=== PATIENT | female | born 1955 | race Caucasian/White ===

== ENCOUNTER 2017-01-18 09:41 | Outpatient (CLI) | payer OTHER ==
[~2017-01-18] VITALS: Ht 157.5 cm; Wt 59.1 kg
[2017-01-18] MEDS ORDERED: FLUT1AER IH (10:04)
[2017-01-18] MEDS ORDERED: OXYC5TAB71 PO (10:04)
[2017-01-18] MEDS ORDERED: [UNRECOGNIZED DRUG - CODE] PO (10:04)
[2017-01-18] MEDS ORDERED: SUMA50TA2 PO (10:04)
[2017-01-18] MEDS ORDERED: MONT10TA21 PO (10:04)
[2017-01-18] MEDS ORDERED: BUPR300T51 PO (10:04)
[2017-01-18] MEDS ORDERED: LUBI24CA6 PO (10:04)
[2017-01-18] MEDS ORDERED: DILT180C PO (10:04)
[2017-01-18] MEDS ORDERED: CLON1TAB27 PO (10:04)
[2017-01-18] MEDS ORDERED: CARI350T27 PO (10:04)
[2017-01-18] MEDS ORDERED: MULT-35 PO (10:04)
[2017-01-18] MEDS ORDERED: SIMV40TA4 PO (10:04)
[2017-01-18] MEDS ORDERED: QUET25TA73 PO (10:04)
[2017-01-18] MEDS ORDERED: RAMI10CA PO (10:04)
[2017-01-18] MEDS ORDERED: AMIT25TA9 PO (10:04)
[2017-01-18] MEDS ORDERED: PANT40TA3 PO (10:04)
[2017-01-18] MEDS ORDERED: FOLI1TAB24 PO (10:04)
[2017-01-18] MEDS ORDERED: LEVO125T6 PO (10:04)
[2017-01-18] MEDS ORDERED: ABAT250V IV (10:04)
[2017-01-18 10:12] VITALS: BP 116/77
[2017-01-18 10:55] LABS: BASOPHILS % (AUTO) 0 % (0-10); EOSINOPHILS # (AUTO) 0.1 10^3/uL (0.0-0.3); EOSINOPHILS % (AUTO) 1 % (0-10); LYMPHOCYTES # (AUTO) 1.3 X 10^3 (1.0-4.0); LYMPHOCYTES % (AUTO) 19 % (12-44); MEAN CORPUSCULAR HEMOGLOBIN 30 PG (25-34); MEAN CORPUSCULAR HGB CONC 34 G/DL (32-36); MEAN CORPUSCULAR VOLUME 88 FL (80-99); MEAN PLATELET VOLUME 8.1 FL (7.4-10.4); MONOCYTES # (AUTO) 0.8 X 10^3 (0.0-1.0); MONOCYTES % (AUTO) 12 % (0-12); NEUTROPHILS # (AUTO) 4.6 X 10^3 (1.8-7.8); NEUTROPHILS % (AUTO) 68 % (42-75); PLATELET COUNT 338 10^3/uL (130-400); RED BLOOD COUNT 4.17 10^6/uL (4.35-5.85); RED CELL DISTRIBUTION WIDTH 12.8 % (10.0-14.5); WHITE BLOOD COUNT 6.7 10^3/uL (4.3-11.0)
[2017-01-18 11:19] LABS: ANION GAP 8 MMOL/L (5-14); BLOOD UREA NITROGEN 9 MG/DL (7-18); BUN/CREATININE RATIO 10; CALCIUM 9.5 MG/DL (8.5-10.1); CARBON DIOXIDE 26 MMOL/L (21-32); CHLORIDE 97 MMOL/L (98-107); CREATININE SERUM 0.92 MG/DL (0.60-1.30); GFR ESTIMATED > 60; GLUCOSE 101 MG/DL (70-105); POTASSIUM 3.7 MMOL/L (3.6-5.0); SODIUM 131 MMOL/L (135-145)
== END 2017-01-18 11:30 | disposition home or self-care (01) ==
LOC: PREOP 09:41
PROVIDERS: ATTEND Orthopaedic Surgery Orthopaedic Surgery of the Spine
DX: Z01.812 Encounter for preprocedural laboratory examination (principal); Z11.2 Encounter for screening for other bacterial diseases; M48.06 Spinal stenosis, lumbar region; I10 Essential (primary) hypertension
CPT/HCPCS: 36415; 80048; 85025; 86850; 86900; 86901; 87081

== ENCOUNTER 2017-01-25 05:47 | Inpatient (IN) | payer OTHER ==
[~2017-01-25] VITALS: Ht 157.5 cm; Wt 59.1 kg
[2017-01-25] VITALS (24 sets, daily range): BP systolic 87–204; BP diastolic 43–186
[~2017-01-25 05:47] MED LIST: ABAT250V IV; AMIT25TA9 PO; BUPR300T51 PO; CARI350T27 PO; CLON1TAB27 PO; DILT180C PO; FLUT1AER IH; FOLI1TAB24 PO; LEVO125T6 PO; LUBI24CA6 PO; MONT10TA21 PO; MULT-35 PO; OXYC5TAB71 PO; PANT40TA3 PO; QUET25TA73 PO; RAMI10CA PO; SIMV40TA4 PO; SUMA50TA2 PO; [UNRECOGNIZED DRUG - CODE] PO
[2017-01-25] MEDS ORDERED: NS (IVPB) 50 ML ONE (06:39)
[2017-01-25] MEDS ORDERED: ceFAZolin 1,000 MG (ANCEF) VIAL ONE ×2 (06:39→11:22)
[2017-01-25] MEDS ORDERED: ceFAZolin 1 GM/NS 50 ML IVPB IV ONE ×2 (06:45)
[2017-01-25] MEDS ORDERED: ONDANSETRON 4 MG/2 ML (SDV) Z0FRAN ONE (06:50)
[2017-01-25] MEDS ORDERED: LIDOCAINE PF 2% 10 ML (XYLOCAINE) AMP ONE (06:50)
[2017-01-25] MEDS ORDERED: DEXAMETHASONE PF 10 MG/ML (DECADRON) VIAL ONE (06:50)
[2017-01-25] MEDS ORDERED: proPOfol 200 MG/20 ML (DIPRIVAN) VIAL IV ONE (06:50)
[2017-01-25] MEDS ORDERED: fentaNYL INJECTION 250 MCG/5 ML AMP ONE (06:50)
[2017-01-25] MEDS ORDERED: SUCCINYLCHOLINE INJ 100 MG/5 ML SYR ONE (06:50)
[2017-01-25] MEDS ORDERED: MIDAZOLAM 2 MG/2 ML (VERSED) VIAL ONE (06:51)
[2017-01-25] MEDS ORDERED: VANCOMYCIN 1000 MG/VIAL ONE (06:55)
[2017-01-25] MEDS ORDERED: GENTAMICIN 40 MG/ML 2 ML INJ SDV ONE ×2 (06:55→12:09)
[2017-01-25] MEDS ORDERED: FAMOTIDINE 20MG/2ML IV (PEPCID) IV ONE (07:00)
[2017-01-25] MEDS ORDERED: DEXMEDETOMIDINE 200 MCG/2 ML (PRECEDEX) VIAL IV ONE ×2 (07:01→12:27)
[2017-01-25] MEDS ORDERED: LACTATED RINGERS 1,000 ML IV ONE ×6 (07:05→18:00)
[2017-01-25] MEDS ORDERED: NS (IVPB) 100 ML ONE ×2 (07:05→12:29)
[2017-01-25] MEDS: LACTATED RINGERS 1,000 ML IV PRN ×3 (07:20→11:15)
--- NOTE | 2017-01-25 07:23 | History & Physical-Surgical ---
HPO-Surgical History of Present Illness Chief Complaint: Back pain, leg pain and weakness Diagnosis/Surgical Indication: lumbar kyphosis, sagittal imbalance Procedure: L2-3 XLIF and T7-Pelvis PSF with L4 PSO Date of Surgery: January 25, 2017 Weight (Pounds): 130 Weight (Ounces): 4.0 Height (Feet): 5 Height (Inches): 2.00 Allergies and Home Medications Allergies Coded Allergies: adalimumab (Verified Allergy, Intermediate, HIVES, 01/18/17) morphine (Verified Allergy, Intermediate, N/V, 01/18/17) Home Medications Abatacept/Maltose 250 Mg Vial, 500 MG IV MONTHLY, (Reported) Amitriptyline HCl 25 Mg Tablet, 25 MG PO DAILY, (Reported) Bupropion HCl 300 Mg Tab.er.24h, 300 MG PO DAILY, (Reported) Carisoprodol 350 Mg Tablet, 350 MG PO BID, (Reported) Clonazepam 1 Mg Tab.rapdis, 1 MG PO DAILY, (Reported) Diltiazem HCl 180 Mg Cap.er.24h, 180 MG PO DAILY, (Reported) Fluticasone/Vilanterol 1 Each Blst.w.dev, 1 EACH IH DAILY, (Reported) Folic Acid 1 Mg Tablet, 1 MG PO DAILY, (Reported) Levothyroxine Sodium 125 Mcg Tablet, 125 MCG PO DAILY, (Reported) Lubiprostone 24 Mcg Capsule, 24 MCG PO BID, (Reported) Montelukast Sodium 10 Mg Tablet, 10 MG PO DAILY, (Reported) Multivitamin 1 Each Tablet, 1 EACH PO DAILY, (Reported) Oxycodone HCl 5 Mg Tablet, 5 MG PO PRN PRN for PAIN-MILD TO MODERATE, (Reported) Pantoprazole Sodium 40 Mg Tablet.dr, 40 MG PO DAILY, (Reported) Quetiapine Fumarate 25 Mg Tablet, 25 MG PO DAILY, (Reported) Ramipril 10 Mg Capsule, 10 MG PO DAILY, (Reported) Simvastatin 40 Mg Tablet, 40 MG PO DAILY, (Reported) Sodium Chloride 1,000 Mg Tablet.atul, 1,000 MG PO TID, (Reported) Sumatriptan Succinate 50 Mg Tablet, 50 MG PO PRN PRN for HEADACHE, (Reported) Past Qpzvaea-Emvcdr-Qfetpa Hx Patient Social History Marrital Status: Employed/Student: retired Alcohol Use: Denies Use Recreational Drug Use: No Smoking Status: Never a Smoker Recent Foreign Travel: No Contact w/other who traveled: No Recent Hopitalizations: No Immunizations Up To Date Tetanus Booster (TDap): Less than 5yrs Seasonal Allergies Seasonal Allergies: No Surgeries Surgeries: Orthopedic Respiratory Hx Respiratory Disorders: No Cardiovascular Hx Cardiovascular Disorders: No Neurological Hx Neurological Disorders: No Reproductive System Sexually Transmitted Disease: No HIV/AIDS: No Genitourinary Hx Genitourinary Disorders: No Gastrointestinal Gastrointestinal Disorders: Gastroesophageal Reflux, Chronic Constipation, Diverticulosis Musculoskeletal Musculoskeletal Disorders: Rheumatoid Arthritis, Chronic Back Pain Endocrine Hx Endocrine Disorders: No HEENT HX ENT Disorders: No Loss of Vision: Bilateral Hearing Impairment: Denies Psychosocial Behavioral Health Disorders: Anxiety, Bipolar, Depression Blood Transfusions Adverse Reaction to a Blood Tr: No Family Medical History Family Hx: BREAST CANCER G8 SISTER CHF 19 FATHER Cardiovascular disease 19 FATHER Dementia 19 MOTHER Hypertension 19 FATHER MOOD DISORDER 19 FATHER G8 SISTER Psychosocial problem G8 SISTER Respiratory disorder 19 FATHER G8 SISTER Thyroid disease G8 SISTER ULCERS 19 FATHER Exam Vital Signs Capillary Refill : Labs Xrays show a significant sagittal imbalance of her thoracolumbar spine. General Appearance: Alert, Oriented X3, Cooperative HEENT: Atraumatic Respiratory: Clear to Auscultation Cardiovascular: Regular Rate Abdominal: Normal Bowel Sounds, Soft Extremities: No Clubbing, No Edema, Normal Pulses Skin: No Rashes Neuro: Sensation Intact, Reflexes 2+, Other (fatigue weakness of both legs, + Saggital imbalance) Psych/Mental Status: Mental Status NL Assessment/Plan Assessment and Plan Lumbar Stenosis Lumbar Radiculopathy Lumbar Kyphosis Plan: L2-3 XLIF, T7-Pelvis PSF with L4- Pedicle Subtraction Osteotomy (3 column ) and L1-3 laminectomy Problems: ANAHI POLANCO MD January 25, 2017 7:23 am
[2017-01-25] MEDS ORDERED: TRANEXAMIC ACID 100 MG/ML 10 ML INJECTION IV ONE (09:31)
[2017-01-25] MEDS ORDERED: ROCURONIUM 50 MG/5 ML (ZEMURON) VIAL IV ONE (09:31)
[2017-01-25] MEDS ORDERED: fentaNYL INJECTION 100 MCG/2 ML AMP ONE ×2 (10:28→14:18)
[2017-01-25] MEDS ORDERED: NS IV 1000 ML 1,000 ML ONE (11:42)
[2017-01-25] MEDS ORDERED: ceFAZolin INJECTION 1,000 MG in NS (IVPB) 50 ML IV ONE (12:15)
[2017-01-25] MEDS ORDERED: SEVOFLURANE (ULTANE) 15 ML INHAL SOLN ONE ×5 (12:17→14:26)
[2017-01-25] MEDS ORDERED: NS (IVPB) 250 ML ONE (12:45)
[2017-01-25] MEDS ORDERED: PHENYLEPHRINE INJ 10 MG/ML (NEO-SYNEPHRINE 1%) ONE ×2 (12:45→14:55)
[2017-01-25 13:02] LABS: MEAN PLATELET VOLUME 8.2 FL (7.4-10.4); RED BLOOD COUNT 4.06 10^6/uL (4.35-5.85); RED CELL DISTRIBUTION WIDTH 13.2 % (10.0-14.5); WHITE BLOOD COUNT 17.5 10^3/uL (4.3-11.0)
[2017-01-25] MEDS ORDERED: HYDROmorphone (DILAUDID) 2 MG/ML VIAL ONE (14:16)
[2017-01-25] MEDS ORDERED: MEPERIDINE (DEMEROL) INJ 50 MG/ML ONE (14:17)
--- NOTE | 2017-01-25 14:40 | Progress Note-Post Operative ---
Post-Operative Progess Note Surgeon (s)/Hose Sprayer (s) Surgeon ANAHI POLANCO MD Hose Sprayer: Chepe Krishnan, MIRELLA Pre-Operative Diagnosis lumbar kyphosis, sagittal imbalance Post-Operative Diagnosis Same, and non-union, painful hardware Lumbar stenosis Procedure & Operative Findings Date of Procedure 01/25/17 Procedure Performed/Findings L2-3 Antrolateral interbody fusion and L2-4 Revision laminectomy and L4 PSO, with T7-Pelvis PSF with instrumentation, bone graft Anesthesia Type GETA Estimated Blood Loss Estimated blood loss (mL): 2000 Specimens/Packing Specimens Removed None Packing: NOne ANAHI POLANCO MD January 25, 2017 2:40 pm
[2017-01-25] MEDS ORDERED: D5W 250 ML (IVPB) 250 ML IV ONE (14:55)
[2017-01-25] MEDS ORDERED: DIAZEPAM 5 MG (VALIUM) TABLET PO PRN (15:00)
[2017-01-25] MEDS ORDERED: diphenhydrAMINE 25 MG TAB (BENADRYL) PO PRN (15:00)
[2017-01-25] MEDS ORDERED: PROMETHAZINE 25 MG (PHENERGAN) TAB PO PRN (15:00)
[2017-01-25] MEDS ORDERED: ACETAMINOPHEN 325 MG TABLET/CAPLET (TYLENOL) PO PRN (15:00)
[2017-01-25] MEDS ORDERED: ONDANSETRON 4 MG/2 ML (SDV) Z0FRAN IVP PRN (15:00)
[2017-01-25] MEDS ORDERED: fentaNYL INJECTION 100 MCG/2 ML AMP IVP PRN (15:00)
[2017-01-25] MEDS ORDERED: HYDROmorphone (DILAUDID) 2 MG/ML VIAL IVP PRN (15:00)
--- NOTE | 2017-01-25 15:40 | Diagnostic Imaging Report ---
EXAMINATION: Intraoperative views of the spine and pelvis. INDICATION: Spine fusion. FLUOROSCOPY TIME: The fluoroscopy time provided to the OR is 1 minute and 21 seconds. IMPRESSION: The provided images demonstrate posterior fusion hardware from the lower thoracic spine and throughout the lumbar spine into the pelvis with the AP projection demonstrating an anterior fusion disc cage at the L4-5 and L5-S1 levels and the lowest pelvic screws appears to traverse the SI joints on both sides. Dictated by: Dictated on workstation # [id number]
[2017-01-25] MEDS: PHENYLEPHRINE INJECTION 10 MG in D5W 250 ML (IVPB) 249 ML IV SCH ×3 (15:55→21:44)
[2017-01-25] MEDS: LACTATED RINGERS 1,000 ML IV SCH ×2 (16:18→22:44)
[2017-01-25] MEDS: fentaNYL INJECTION 100 MCG/2 ML AMP IVP PRN ×4 (16:53→22:44)
--- NOTE | 2017-01-25 17:50 | Pulmonary Consultation ---
History of Present Illness History of Present Illness Date of Consultation 01/25/17 17:45 Date of Admission Allergies and Home Medications Allergies Coded Allergies: adalimumab (Verified Allergy, Intermediate, HIVES, 01/18/17) morphine (Verified Allergy, Intermediate, N/V, 01/18/17) Home Medications Abatacept/Maltose 250 Mg Vial, 500 MG IV MONTHLY, (Reported) Amitriptyline HCl 25 Mg Tablet, 25 MG PO DAILY, (Reported) Bupropion HCl 300 Mg Tab.er.24h, 300 MG PO DAILY, (Reported) Carisoprodol 350 Mg Tablet, 350 MG PO BID, (Reported) Clonazepam 1 Mg Tab.rapdis, 1 MG PO DAILY, (Reported) Diltiazem HCl 180 Mg Cap.er.24h, 180 MG PO DAILY, (Reported) Fluticasone/Vilanterol 1 Each Blst.w.dev, 1 EACH IH DAILY, (Reported) Folic Acid 1 Mg Tablet, 1 MG PO DAILY, (Reported) Levothyroxine Sodium 125 Mcg Tablet, 125 MCG PO DAILY, (Reported) Lubiprostone 24 Mcg Capsule, 24 MCG PO BID, (Reported) Montelukast Sodium 10 Mg Tablet, 10 MG PO DAILY, (Reported) Multivitamin 1 Each Tablet, 1 EACH PO DAILY, (Reported) Oxycodone HCl 5 Mg Tablet, 5 MG PO PRN PRN for PAIN-MILD TO MODERATE, (Reported) Pantoprazole Sodium 40 Mg Tablet.dr, 40 MG PO DAILY, (Reported) Quetiapine Fumarate 25 Mg Tablet, 25 MG PO DAILY, (Reported) Ramipril 10 Mg Capsule, 10 MG PO DAILY, (Reported) Simvastatin 40 Mg Tablet, 40 MG PO DAILY, (Reported) Sodium Chloride 1,000 Mg Tablet.atul, 1,000 MG PO TID, (Reported) Sumatriptan Succinate 50 Mg Tablet, 50 MG PO PRN PRN for HEADACHE, (Reported) Past Qdwztvj-Cumefw-Mjmnsy Hx Patient Social History Alcohol Use: Occasionally Uses Recreational Drug Use: No Smoking Status: Never a Smoker Recent Foreign Travel: No Contact w/Someone Who Travel: No Recent Infectious Disease Expo: No Recent Hopitalizations: No Physical Abuse Screen: No Sexual Abuse: No Immunizations Up To Date Tetanus Booster (TDap): Less than 5yrs Seasonal Allergies Seasonal Allergies: No Surgeries Surgeries: Orthopedic Respiratory Hx Respiratory Disorders: No Respiratory Disorders: Chronic Bronchitis Cardiovascular Hx Cardiac Disorders: No Neurological Hx Neurological Disorders: No Reproductive System Sexually Transmitted Disease: No HIV/AIDS: No Genitourinary Hx Genitourinary Disorders: No Gastrointestinal Gastrointestinal Disorders: Gastroesophageal Reflux, Chronic Constipation, Diverticulosis Musculoskeletal Musculoskeletal Disorders: Rheumatoid Arthritis, Chronic Back Pain Endocrine Hx Endocrine Disorders: No HEENT HX ENT Disorders: No Loss of Vision: Bilateral Hearing Impairment: Denies Psychosocial Behavioral Health Disorders: Anxiety, Bipolar, Depression Blood Transfusions Adverse Reaction to a Blood Tr: No Family Medical History Family Medial History: BREAST CANCER G8 SISTER CHF 19 FATHER Cardiovascular disease 19 FATHER Dementia 19 MOTHER Hypertension 19 FATHER MOOD DISORDER 19 FATHER G8 SISTER Psychosocial problem G8 SISTER Respiratory disorder 19 FATHER G8 SISTER Thyroid disease G8 SISTER ULCERS 19 FATHER Exam Exam Vital Signs Date Time Temp Pulse Resp B/P (MAP) Pulse Ox O2 Delivery O2 Flow Rate FiO2 01/25/17 16:57 3.00 01/25/17 07:51 98.0 73 16 114/80 98 Results Lab Laboratory Tests 01/25/17 12:54 01/25/17 15:14 Assessment/Plan Assessment/Plan Lumbar Stenosis with Radiculopathy and Lumbar Kyphosis s/p surgery Hypotension -aggressive IVF -S/P PRBC transfusion -Currently on Hermes - attempt to wean as tolerated 255 Clinical Quality Measures DVT/VTE Risk/Contraindication: Risk Factor Score Per Nursin RFS Level Per Nursing on Admit: 4+=Very High JENNIFER BULLARD DO January 25, 2017 17:50
[2017-01-25] MEDS: ceFAZolin INJECTION 2,000 MG in NS (IVPB) 50 ML IV SCH (18:35)
[2017-01-25] MEDS: oxyCODONE/APAP 10/325MG (PERCOCET 10) TABLET PO PRN (19:16)
[2017-01-25] MEDS: ONDANSETRON 4 MG/2 ML (SDV) Z0FRAN IV PRN (20:22)
[2017-01-25] MEDS: DOCUSATE SODIUM 100 MG (COLACE) CAP PO SCH (20:22)
[2017-01-25] MEDS: SENNOSIDES 8.6 MG (SENOKOT) TAB PO SCH (20:23)
[2017-01-25] MEDS: POLYETHYLENE GLYCOL 17 GM (MIRALAX) PACK PO SCH (20:23)
[2017-01-25] MEDS ORDERED: FAMOTIDINE 20 MG (PEPCID) TABLET PO SCH (21:00)
[2017-01-25] MEDS ORDERED: clonazePAM 1 MG (KlonoPIN) TAB ONE (22:33)
[2017-01-25] MEDS ORDERED: AMITRIPTYLINE 50 MG (ELAVIL) TAB PO ONE (22:34)
[2017-01-25] MEDS ORDERED: buPROPion SR 150 MG (WELLBUTRIN SR) TAB PO ONE (22:34)
[2017-01-25] MEDS ORDERED: buPROPion SR 150 MG (WELLBUTRIN SR) TAB PO SCH ×2 (22:38→22:45)
[2017-01-25] MEDS ORDERED: AMITRIPTYLINE 25 MG (ELAVIL) TAB PO SCH (22:39)
[2017-01-25] MEDS ORDERED: clonazePAM 1 MG (KlonoPIN) TAB PO SCH (22:39)
[2017-01-25] MEDS ORDERED: ONDANSETRON 4 MG/2 ML (SDV) Z0FRAN IVP ONE (23:45)
[2017-01-26] VITALS (50 sets, daily range): BP systolic 68–143; BP diastolic 28–91
[2017-01-26] MEDS: fentaNYL INJECTION 100 MCG/2 ML AMP IVP PRN ×7 (00:38→21:20)
[2017-01-26] MEDS: PHENYLEPHRINE INJECTION 10 MG in D5W 250 ML (IVPB) 249 ML IV SCH ×7 (01:02→21:33)
[2017-01-26] MEDS: oxyCODONE/APAP 10/325MG (PERCOCET 10) TABLET PO PRN ×4 (01:38→22:25)
[2017-01-26] MEDS: ceFAZolin INJECTION 2,000 MG in NS (IVPB) 50 ML IV SCH ×2 (03:46→11:40)
[2017-01-26 04:32] LABS: BASOPHILS % (AUTO) 0 % (0-10); EOSINOPHILS % (AUTO) 0 % (0-10); LYMPHOCYTES # (AUTO) 0.8 X 10^3 (1.0-4.0); LYMPHOCYTES % (AUTO) 5 % (12-44); MEAN CORPUSCULAR HEMOGLOBIN 30 PG (25-34); MEAN CORPUSCULAR HGB CONC 34 G/DL (32-36); MEAN CORPUSCULAR VOLUME 87 FL (80-99); MEAN PLATELET VOLUME 8.3 FL (7.4-10.4); MONOCYTES # (AUTO) 1.3 X 10^3 (0.0-1.0); MONOCYTES % (AUTO) 7 % (0-12); NEUTROPHILS # (AUTO) 15.4 X 10^3 (1.8-7.8); NEUTROPHILS % (AUTO) 88 % (42-75); PLATELET COUNT 256 10^3/uL (130-400); RED BLOOD COUNT 2.75 10^6/uL (4.35-5.85); RED CELL DISTRIBUTION WIDTH 13.7 % (10.0-14.5); WHITE BLOOD COUNT 17.5 10^3/uL (4.3-11.0)
[2017-01-26 04:55] LABS: ALANINE AMINOTRANSFERASE 21 U/L (0-55); ALBUMIN 2.6 G/DL (3.2-4.5); ANION GAP 7 MMOL/L (5-14); ASPARTATE AMINO TRANSFERASE 47 U/L (5-34); BILIRUBIN,TOTAL 0.2 MG/DL (0.1-1.0); BLOOD UREA NITROGEN 8 MG/DL (7-18); BUN/CREATININE RATIO 9; CALCIUM 7.4 MG/DL (8.5-10.1); CARBON DIOXIDE 20 MMOL/L (21-32); CHLORIDE 98 MMOL/L (98-107); CREATININE SERUM 0.85 MG/DL (0.60-1.30); GFR ESTIMATED > 60; GLUCOSE 150 MG/DL (70-105); MAGNESIUM 1.1 MG/DL (1.8-2.4); PHOSPHORUS 3.2 MG/DL (2.3-4.7); TOTAL PROTEIN 4.1 G/DL (6.4-8.2)
[2017-01-26 05:00] LABS: SODIUM 125 MMOL/L (135-145)
[2017-01-26] MEDS: MAGNESIUM 1 GM/100 ML IVPB 100 ML IV SCH ×5 (05:07→08:55)
[2017-01-26] MEDS: POTASSIUM CL 10MEQ/50ML IVPB 50 ML IV SCH (05:07)
[2017-01-26] MEDS: KCL 20 MEQ TAB (K-DUR) PO SCH (05:09)
[2017-01-26] MEDS: LACTATED RINGERS 1,000 ML IV SCH (05:17)
[2017-01-26] MEDS: ONDANSETRON 4 MG/2 ML (SDV) Z0FRAN IV PRN (05:42)
--- NOTE | 2017-01-26 06:09 | Progress Note (SOAP) ---
Subjective Subjective/Events-last exam Awake, alert, uncomfortable No neuro, sensory deficits Objective Exam Vital Signs Date Time Temp Pulse Resp B/P (MAP) Pulse Ox O2 Delivery O2 Flow Rate FiO2 01/26/17 03:47 3.00 01/26/17 03:46 98.4 3.00 01/26/17 02:45 98 9 130/78 100 3.00 01/26/17 02:30 105 12 134/62 95 3.00 01/26/17 02:15 93 8 121/75 93 3.00 01/26/17 02:00 91 18 107/62 100 3.00 01/26/17 01:53 98.5 3.00 01/26/17 01:45 86 11 127/53 100 3.00 01/26/17 01:30 99 9 108/71 99 3.00 01/26/17 01:15 81 10 105/83 100 3.00 01/26/17 01:00 96 8 69/55 97 3.00 01/26/17 01:00 96 01/26/17 00:45 90 6 80/54 100 3.00 01/26/17 00:30 89 9 96/58 100 3.00 01/26/17 00:15 86 31 87/55 100 3.00 01/26/17 00:00 3.00 01/26/17 00:00 100 19 95/61 100 3.00 01/25/17 23:45 105 11 95/70 100 3.00 01/25/17 23:30 101 16 98/70 100 3.00 01/25/17 23:15 108 14 102/74 98 3.00 01/25/17 23:00 93 0 120/107 100 3.00 01/25/17 22:45 79 8 111/103 100 3.00 01/25/17 22:30 68 12 204/186 100 3.00 01/25/17 22:15 84 12 131/97 100 3.00 01/25/17 22:00 77 18 161/105 100 3.00 01/25/17 21:45 64 21 142/75 100 3.00 01/25/17 21:30 90 14 127/76 100 3.00 01/25/17 21:15 71 24 121/64 100 3.00 01/25/17 21:00 67 14 116/71 100 3.00 01/25/17 20:45 62 12 93/77 99 3.00 01/25/17 20:30 77 9 97/43 100 3.00 01/25/17 20:15 82 11 99/58 99 3.00 01/25/17 20:00 3.00 01/25/17 20:00 67 14 114/71 100 3.00 01/25/17 19:52 98.2 3.00 01/25/17 19:45 70 15 123/64 100 3.00 01/25/17 19:30 66 10 118/79 100 3.00 01/25/17 19:15 65 11 98/50 98 3.00 01/25/17 19:00 78 01/25/17 19:00 78 10 110/76 95 3.00 01/25/17 18:00 72 6 107/67 100 3.00 01/25/17 17:00 60 9 93/57 100 3.00 01/25/17 16:57 3.00 01/25/17 16:45 3.00 01/25/17 16:00 5.00 01/25/17 16:00 5.00 01/25/17 15:55 97.2 64 10 87/61 100 8.00 01/25/17 07:51 98.0 73 16 114/80 98 I & O 01/26/17 07:00 Intake Total 7804 ml Output Total 1150 ml Balance 6654 ml Capillary Refill : General Appearance: Moderate Distress Neck: Non Tender, Supple Respiratory: No Accessory Muscle Use, No Respiratory Distress Cardiovascular: Regular Rate, Rhythm, Normal Peripheral Pulses Gastrointestinal: non tender, soft Extremity: Normal Capillary Refill, Non Tender, No Calf Tenderness Neurologic/Psychiatric: Alert, Oriented x3, No Motor/Sensory Deficits Results Lab Laboratory Tests 01/25/17 12:54: White Blood Count 17.5H, Red Blood Count 4.06L, Hemoglobin 12.0, Hematocrit 35, Mean Corpuscular Volume 87, Mean Corpuscular Hemoglobin 30, Mean Corpuscular Hemoglobin Concent 34, Red Cell Distribution Width 13.2, Platelet Count 296, Mean Platelet Volume 8.2 01/25/17 15:14: Hemoglobin 10.9L, Hematocrit 32L 01/26/17 04:20: White Blood Count 17.5H, Red Blood Count 2.75L, Hemoglobin 8.2#L, Hematocrit 24L , Mean Corpuscular Volume 87, Mean Corpuscular Hemoglobin 30, Mean Corpuscular Hemoglobin Concent 34, Red Cell Distribution Width 13.7, Platelet Count 256, Mean Platelet Volume 8.3, Neutrophils (%) (Auto) 88H, Lymphocytes (%) (Auto) 5L , Monocytes (%) (Auto) 7, Eosinophils (%) (Auto) 0, Basophils (%) (Auto) 0, Neutrophils # (Auto) 15.4H, Lymphocytes # (Auto) 0.8L, Monocytes # (Auto) 1.3H, Eosinophils # (Auto) 0.0, Basophils # (Auto) 0.0, Sodium Level 125*L, Potassium Level 4.0, Chloride Level 98, Carbon Dioxide Level 20L, Anion Gap 7, Blood Urea Nitrogen 8, Creatinine 0.85, Estimat Glomerular Filtration Rate > 60, BUN/ Creatinine Ratio 9, Glucose Level 150H, Calcium Level 7.4L, Phosphorus Level 3.2 , Magnesium Level 1.1L, Total Bilirubin 0.2, Aspartate Amino Transf (AST/SGOT) 47H, Alanine Aminotransferase (ALT/SGPT) 21, Alkaline Phosphatase 54, Total Protein 4.1L, Albumin 2.6L Assessment/Plan Assessment/Plan Assess & Plan/Chief Complaint Post-Laminectomy Kyphosis Lumbar Stenosis, Neural Canal disk/osseous structures Lumbar Radiculopathy Lumbar Non-union Mechanical Complication of Hardware Acute Blood Loss Anemia Hyponatremia Plan: Up today without brace Transfuse 2 units Mobilize, and pain control Clinical Quality Measures DVT/VTE Risk/Contraindication: Risk Factor Score Per Nursin RFS Level Per Nursing on Admit: 4+=Very High ANAHI POLANCO MD January 26, 2017 06:09
[2017-01-26] MEDS ORDERED: PROMETHAZINE INJ 25 MG/ML (PHENERGAN) AMP IVP PRN (06:15)
[2017-01-26] MEDS ORDERED: fentaNYL PATCH 75 MCG (DURAGESIC) TD SCH (06:15)
[2017-01-26] MEDS ORDERED: NS IV 500 ML 500 ML IV ONE (06:30)
--- NOTE | 2017-01-26 06:32 | Pulmonary Progress Note ---
Subjective Subjective/Events-last exam Pt is still hypotensive on hermes. HB has dropped and UO is decreased and concentrated Exam Exam Vital Signs Date Time Temp Pulse Resp B/P (MAP) Pulse Ox O2 Delivery O2 Flow Rate FiO2 01/26/17 03:47 3.00 01/26/17 03:46 98.4 3.00 01/26/17 02:45 98 9 130/78 100 3.00 01/26/17 02:30 105 12 134/62 95 3.00 01/26/17 02:15 93 8 121/75 93 3.00 01/26/17 02:00 91 18 107/62 100 3.00 01/26/17 01:53 98.5 3.00 01/26/17 01:45 86 11 127/53 100 3.00 01/26/17 01:30 99 9 108/71 99 3.00 01/26/17 01:15 81 10 105/83 100 3.00 01/26/17 01:00 96 8 69/55 97 3.00 01/26/17 01:00 96 01/26/17 00:45 90 6 80/54 100 3.00 01/26/17 00:30 89 9 96/58 100 3.00 01/26/17 00:15 86 31 87/55 100 3.00 01/26/17 00:00 3.00 01/26/17 00:00 100 19 95/61 100 3.00 01/25/17 23:45 105 11 95/70 100 3.00 01/25/17 23:30 101 16 98/70 100 3.00 01/25/17 23:15 108 14 102/74 98 3.00 01/25/17 23:00 93 0 120/107 100 3.00 01/25/17 22:45 79 8 111/103 100 3.00 01/25/17 22:30 68 12 204/186 100 3.00 01/25/17 22:15 84 12 131/97 100 3.00 01/25/17 22:00 77 18 161/105 100 3.00 01/25/17 21:45 64 21 142/75 100 3.00 01/25/17 21:30 90 14 127/76 100 3.00 01/25/17 21:15 71 24 121/64 100 3.00 01/25/17 21:00 67 14 116/71 100 3.00 01/25/17 20:45 62 12 93/77 99 3.00 01/25/17 20:30 77 9 97/43 100 3.00 01/25/17 20:15 82 11 99/58 99 3.00 01/25/17 20:00 3.00 01/25/17 20:00 67 14 114/71 100 3.00 01/25/17 19:52 98.2 3.00 01/25/17 19:45 70 15 123/64 100 3.00 01/25/17 19:30 66 10 118/79 100 3.00 01/25/17 19:15 65 11 98/50 98 3.00 01/25/17 19:00 78 01/25/17 19:00 78 10 110/76 95 3.00 01/25/17 18:00 72 6 107/67 100 3.00 01/25/17 17:00 60 9 93/57 100 3.00 01/25/17 16:57 3.00 01/25/17 16:45 3.00 01/25/17 16:00 5.00 01/25/17 16:00 5.00 01/25/17 15:55 97.2 64 10 87/61 100 8.00 01/25/17 07:51 98.0 73 16 114/80 98 I & O 01/26/17 07:00 Intake Total 7804 ml Output Total 1150 ml Balance 6654 ml General Appearance: Moderate Distress Neck: Non Tender, Supple Respiratory: No Accessory Muscle Use, No Respiratory Distress Cardiovascular: Regular Rate, Rhythm, Normal Peripheral Pulses Gastrointestinal: non tender, soft Extremity: Normal Capillary Refill, Non Tender, No Calf Tenderness Neurologic/Psychiatric: Alert, Oriented x3, No Motor/Sensory Deficits Skin: Normal Color, Warm/Dry Lymphatic: No Adenopathy Results Lab Laboratory Tests 01/25/17 12:54 01/25/17 15:14 01/26/17 04:20 Assessment/Plan Assessment/Plan Lumbar Stenosis with Radiculopathy and Lumbar Kyphosis s/p surgery Hypotension -aggressive IVF -repeat PRBC transfusion x 2 units -Currently on Hermes - attempt to wean as tolerated -500ml bolus Hyponatremia - chronic-- secondary to Antidepressants -pt takes salt tabs at home- restart once pt is able to take POs -change IVF to NS Post surgical anemia 233 Clinical Quality Measures DVT/VTE Risk/Contraindication: Risk Factor Score Per Nursin RFS Level Per Nursing on Admit: 4+=Very High JENNIFER BULLARD DO January 26, 2017 06:32
[2017-01-26] MEDS ORDERED: NS IV 1000 ML 1,000 ML ONE (06:42)
[2017-01-26] MEDS ORDERED: NS IV 500 ML 500 ML ONE ×2 (06:42→13:42)
[2017-01-26] MEDS: NS IV 1000 ML 1,000 ML IV SCH ×3 (06:54→20:22)
[2017-01-26] MEDS: MULTIVIT W/MINERALS TAB (THERAGRAN M) PO SCH (07:51)
--- NOTE | 2017-01-26 07:59 | Diagnostic Imaging Report ---
Portable semierect AP chest at 545 hours. INDICATION: Postop. There are no prior studies available for comparison. FINDINGS: The heart size is within normal limits. The lungs are clear. There is no sign of failure, pneumonia or pleural effusion to suggest an acute abnormality. The mediastinum is not widened. The osseous structures are intact. There are bilateral pedicle screws and orthopedic plate and screw fixation device overlying the cervicothoracic junction. There are also extensive postsurgical changes involving the mid thoracic and visualized lumbar spine. Specifically, there are bilateral pedicle screws and interconnecting rods extending from the midthoracic spine to the visualized upper lumbar spine. Skin corona are also seen in this region. IMPRESSION: 1. There is no evidence for an acute cardiopulmonary abnormality. 2. There are postsurgical changes involving the cervicothoracic junction and the lower thoracic and lumbar spine. Dictated by: Dictated on workstation # [id number]
[2017-01-26] MEDS: FAMOTIDINE 20MG/2ML IV (PEPCID) IVP SCH ×2 (08:59→21:18)
[2017-01-26] MEDS ORDERED: clonazePAM 1 MG (KlonoPIN) TAB PO SCH (09:00)
[2017-01-26] MEDS ORDERED: AMITRIPTYLINE 25 MG (ELAVIL) TAB PO SCH (09:00)
[2017-01-26] MEDS ORDERED: buPROPion SR 150 MG (WELLBUTRIN SR) TAB PO SCH (09:00)
[2017-01-26] MEDS: SENNOSIDES 8.6 MG (SENOKOT) TAB PO SCH ×2 (09:02→21:19)
[2017-01-26] MEDS: DOCUSATE SODIUM 100 MG (COLACE) CAP PO SCH ×2 (09:02→21:19)
--- NOTE | 2017-01-26 09:44 | OPERATIVE REPORT ---
DATE OF SERVICE: 01/25/2017 PREOPERATIVE DIAGNOSES: Lumbar kyphosis, post laminectomy kyphosis, post laminectomy syndrome, lumbar stenosis, neural canal neural foramina osseous structures, lumbar radiculopathy, lumbar nonunion, mechanical complication of internal orthopedic hardware. POSTOPERATIVE DIAGNOSES: Lumbar kyphosis, post laminectomy kyphosis, post laminectomy syndrome, lumbar stenosis, neural canal neural foraminal osseous structures, lumbar radiculopathy, lumbar nonunion, mechanical complication of internal orthopedic hardware. PROCEDURES PERFORMED: 1. L2-L3 anterolateral transpsoas interbody fusion via left sided XLIF approach. 2. L2-L3 interbody cage instrumentation. 3. L2-L3 laminectomy. 4. L3-L4 laminectomy. 5. Removal of L3 to L5 posterior segmental spinal instrumentation. 6. L4 pedicle subtraction osteotomy. 7. Thoracic 7 to the pelvis posterior spinal instrumentation. 8. Thoracic 7 to the pelvis posterior spinal fusion. 9. Pelvic fixation at the caudal end of a construct. 10. Autograft for spinal surgery local. 11. Autograft for spinal surgery morselized. DATE AND TIME OF SURGERY: Please see anesthesia records. IMPLANTS USED: K2M Masa posterior spinal instrumentation, K2M [place] lateral interbody cage, K2M Vesuvius bone graft, Medtronic Magnifused bone graft, K2M Nile bands. SURGEON: Anahi Lee MD PROSPECTING OBSERVER: SHANEL Harman. ROLE OF GAMING CAGE WORKER: Aid in retraction of the procedure, aid in implantation, instrumentation and wound closure. ANESTHESIA: General endotracheal. ESTIMATED BLOOD LOSS: 2000 mL. INTRAVENOUS FLUIDS: 3300 mL of crystalloid with 2 units of packed cells. ANTIBIOTICS: Ancef. COMPLICATIONS: None. INDICATIONS FOR PROCEDURES: The patient is a 61-year-old female with severe back and leg pain, sagittal imbalance, post laminectomy syndrome, breakdown above at her prior surgical site with suspected nonunion and pain, desires operative treatment. DESCRIPTION OF THE PROCEDURE: The patient was taken from the preoperative holding area back to the operative suite. After adequate induction of general anesthesia, preoperative antibiotics, and placement of spinal monitoring. A standard intraoperative neuro physiological monitoring carried out by me carried out by me by means of real time continuous high quality bidirectional mode, audio and visual communication to both the telecom field technician and surgeon by Dr. Patel was performed. SSEPS, EMGs, TCMEPs, and TOFs were carried out, continued throughout the procedure and stable. The patient was placed in lateral decubitus position with left side up for standard transpsoas approach to the 2-3 disk space was carried out. Disk was prepped. Trial spacer was used and 12 mm trial 15 degree O[place]o cage filled with Allograft bone was impacted into position after adequate disk prep. Once cage was in position, retractors removed, hemostasis assured, the wound was closed in layers. The patient turned prone on the Jarrod table with careful padding to all extremities, sterilely prepped and draped in the posterior thoracic and lumbar spine. Incision was made from what was initially going to be T9, but elected to move slightly higher because of her area of kyphosis, we moved to thoracic 7 and exposed from thoracic 7 to the pelvis. Previous instrumentation was removed and screws were placed from thoracic [address] to the pelvis skipping #4 and left-sided S1. Once all the screws were in place, and checked on imaging and checked with neuromonitoring, temporary fixation lizz was applied and a pedicle subtraction osteotomy of the L4 was performed with wide decompression in excess of what is required for PSO, but necessary for her stenosis up to the L2 level. Once the 2-3 and 3-4 decompressions were carried out and then the L4 PSO was carried out bilaterally, the rods were loosened and with lordosis and compression, her PSO site was reduced anatomically. Rods were then contoured and bent in fashion and the rods were placed from T7 to the pelvis and once they were in final position, lizz-to-lizz connectors were placed and an additional third lizz for stability was placed as well and then pulse lavage irrigation was utilized across the entire construct and then a high speed bur was used to decorticate posteriorly and posterolaterally and a combination of autograft gone, allograft MagniFuse and allograft Vesuvius bone was packed posterior and posterolaterally for the fusion portion of procedure. Cross connector was placed. Deep drain was placed. Wound was closed in layers and the patient was transferred to recovery room in stable condition and tolerated the procedure well with stable spinal monitoring. Job ID: [id number] DocumentID: [id number] Dictated Date: 01/25/2017 14:43:54 Smog Technician Date: 01/26/2017 07:29:16 Dictated By: ANAHI LEE MD [facility]
--- NOTE | 2017-01-26 10:01 | Consultation-Hospitalist ---
HPI History of Present Illness: HPI/Chief Complaint CC: Medical management of hypotension w/N/V following complex spine surgery HPI: This is a 61yoWF patient of Dr Lee's w/h/o RA on biological immunosuppressives, migraines, HTN and HLP with hypothyroidism that presents to the ICU after an uncomplicated but very complex spinal surgery that resulted in 2000 EBL which necessitated 2 units of blood and 3300cc of IVF while in surgery. She is still requiring pressor therapy along with aggressive IVF for hypotension and currently having more N/V so I ordered a Scopolamine patch to help with that issue. She minimally converses due to N/V. She reports the pain is about the same and PT was unable to initiate therapy due to hypotension of 68 /38 when she was upright on the bed. I reviewed her home meds and H&P. Source: RN/MD Exam Limitations: clinical condition Date Seen 01/26/17 Attending Physician Jhonathan Lee MD PCP No,Local Physician Referring Physician Date of Admission January 25, 2017 at 05:47 Home Medications & Allergies Home Medications Reviewed patient Home Medication Reconciliation Form Allergies Allergies Coded Allergies adalimumab (Verified Allergy, Intermediate, HIVES, 01/18/17) morphine (Verified Allergy, Intermediate, N/V, 01/18/17) Past Dsrcdcw-Xwrpyb-Vnhuoz Hx Patient Social History Marrital Status: Employed/Student: retired Alcohol Use: Occasionally Uses Recreational Drug Use: No Smoking Status: Never a Smoker Physical Abuse Screen: No Sexual Abuse: No Recent Foreign Travel: No Contact w/other who traveled: No Recent Hopitalizations: No Recent Infectious Disease Expo: No Immunizations Up To Date Tetanus Booster (TDap): Less than 5yrs Seasonal Allergies Seasonal Allergies: No Surgeries HX Surgeries: Yes Surgeries: Orthopedic Respiratory Hx Respiratory Disorders: No Cardiovascular Hx Cardiovascular Disorders: Yes Cardiac Disorders: High Cholesterol, Hypertension Neurological Hx Neurological Disorders: Yes Neurological Disorders: Neuropathy Reproductive System Sexually Transmitted Disease: No HIV/AIDS: No Genitourinary Hx Genitourinary Disorders: No Gastrointestinal Hx Gastrointestinal Disorders: Yes Gastrointestinal Disorders: Gastroesophageal Reflux, Chronic Constipation, Diverticulosis Musculoskeletal Hx Musculoskeletal Disorders: Yes Musculoskeletal Disorders: Degenerate Disk Disease, Arthritis, Rheumatoid Arthritis, Chronic Back Pain Endocrine Hx Endocrine Disorders: Yes Endocrine Disorders: Hypothyroidsim HEENT HX ENT Disorders: No Loss of Vision: Bilateral Hearing Impairment: Denies Cancer Hx Cancer: No Psychosocial Behavioral Health Disorders: Anxiety, Bipolar, Depression Blood Transfusions Adverse Reaction to a Blood Tr: No Family Medical History Family Hx: BREAST CANCER G8 SISTER CHF 19 FATHER Cardiovascular disease 19 FATHER Dementia 19 MOTHER Hypertension 19 FATHER MOOD DISORDER 19 FATHER G8 SISTER Psychosocial problem G8 SISTER Respiratory disorder 19 FATHER G8 SISTER Thyroid disease G8 SISTER ULCERS 19 FATHER Review of Systems Constitutional: see HPI, dizziness, malaise, weakness EENTM: no symptoms reported Respiratory: no symptoms reported Cardiovascular: no symptoms reported Gastrointestinal: nausea, vomiting Genitourinary: no symptoms reported Musculoskeletal: back pain Skin: no symptoms reported Psychiatric/Neurological: No Symptoms Reported All Other Systems Reviewed Negative Unless Noted: Yes Physical Exam Physical Exam Vital Signs Vital Sign - Last 12Hours 01/25/17 01/25/17 07:51 15:55 Temp 98.0 Pulse 73 Resp 16 B/P (MAP) 114/80 Pulse Ox 98 O2 Flow Rate 8.00 Capillary Refill : General Appearance: WD/WN, Chronically ill, Moderate Distress, Thin, Other ( pale) Eyes: Bilateral Eye Normal Inspection, Bilateral Eye PERRL HEENT: PERRL/EOMI, Normal ENT Inspection, Pharynx Normal Neck: Full Range of Motion, Normal Inspection, Non Tender, Supple, Carotid Bruit Respiratory: Chest Non Tender, Lungs Clear, Normal Breath Sounds, No Accessory Muscle Use, No Respiratory Distress Cardiovascular: Regular Rate, Rhythm, No Edema, No Gallop, No JVD, No Murmur, Normal Peripheral Pulses Gastrointestinal: Normal Bowel Sounds, No Organomegaly, No Pulsatile Mass, Non Tender, Soft Back: Decreased Range of Motion, Vertebral Tenderness Extremity: Normal Capillary Refill, Normal Inspection, Normal Range of Motion, Non Tender, No Calf Tenderness, No Pedal Edema Neurologic/Psychiatric: Alert, Oriented x3, No Motor/Sensory Deficits, Normal Mood/Affect Skin: Normal Color, Warm/Dry Lymphatic: No Adenopathy Results Results/Procedures Lab Laboratory Tests 01/25/17 12:54 01/25/17 15:14 01/26/17 04:20 Assessment/Plan Admission Diagnosis Assessment: Hypotension following extensive spine surgery with EBL 2000cc s/p 2 units of blood and 3300cc IVF while in OR now requiring pressor therapy and IVF Severe and recurrent nausea and vomiting requiring Scopolamine patch and Zofran RA on biological immunosuppressives Hypothyroidism HTN as out pt HLP Migraines post op anemia due to blood loss Assessment and Plan Plan: Pain control Monitor hypotension closely IVF Monitor labs especially hgb since likely will need 2 more units Hold immunosuppressives Home meds when able Scopolamine patch and Zofran Hold PT until hypotension resolves Clinical Quality Measures DVT/VTE Risk/Contraindication: Risk Factor Score Per Nursin RFS Level Per Nursing on Admit: 4+=Very High HAN LOPEZ DO January 26, 2017 10:01
--- NOTE | 2017-01-26 10:22 | Physical Therapy Evaluation ---
PT Evaluation-General Medical Diagnosis Admission Date January 25, 2017 at 05:47 Medical Diagnosis: spinal stenosis Onset Date: January 25, 2017 Therapy Diagnosis Therapy Diagnosis: generalized weakness and debility Height/Weight Height (Feet): 5 Height (Inches): 2.00 Weight (Pounds): 130 Weight (Ounces): 4.0 Precautions Precautions/Isolations: Fall Prevention, Standard Precautions Weight Bear Status Weight Bearing Restriction: Weight Bearing/Tolerated Location Restriction: LE Bilateral Referral Physician: Jesus Reason for Referral: Evaluation/Treatment Medical History Pertinent Medical History: GERD, Rheumatoid Arthritis Additional Medical History back pain and LE pain; lumbar kyphosis Current History s/p L2-3 xLIF; T7-pelvis PSF; L4 pedicle subtraction with osteotomy; L1-2 laminectomy Reviewed History: Yes Social History Home: Single Level Current Living Status: Spouse Prior/Core FIM Prior Level of Function Functional [place] Measure 0=Not Assessed/NA 4=Minimal Assistance 1=Total Assistance 5=Supervision or Setup 2=Maximal Assistance 6=Modified [place] 3=Moderate Assistance 7=Complete [place] Bed Mobility: 7 Transfers (B,C,W/C) (FIM): 7 Gait: 7 PT Evaluation-Current Subjective Patient c/o N&V. RN consulted and agrees for patient to be up OOB. Pain Numeric Pain Scale: 10-Worst Possible Pain Location: Medial, Upper, Lower Location Body Site: Back Pain Description: Acute Objective Patient Orientation: Normal For Age Problem Solving: Fair Attachments: Oxygen, Drains, Bell Catheter, IV ROM/Strength ROM Lower Extremities bilateral LE WFL Strenght Lower Extremities bilateral LE 3-/5 grossly (no formal testing secondary to lethargy) Integumentary/Posture Integumentary refer to nursing notes Bladder Incontinence: Bell Cath Posture WNL Neuromuscular (Tone, Coordination, Reflexes) diminished due to lethargy Sensory Vision: Functional Hearing: Functional Sensation Right Lower Extremit: Intact Sensation Left Lower Extremity: Intact Transfers Functional [place] Measure 0=Not Assessed/NA 4=Minimal Assistance 1=Total Assistance 5=Supervision or Setup 2=Maximal Assistance 6=Modified [place] 3=Moderate Assistance 7=Complete [place] Transfers (B, C, W/C) (FIM): 1 Scootin Rollin Supine to/from Sit: 1 Gait Mode of Locomotion: Walk Anticipated Mode of Locomotion: Walk Balance Sitting Static: Fair Sitting Dynamic: Poor Treatment BP in sit 68/[address] Gan present. Patient returned to sidelying right and in trendelenburg with BP improving Assessment/Needs 61 y.o. female, will benefit from skilled PT to address functional strength and mobility to improve current LOF and to safely return to home with spouse at maximum LOF. Rehab Potential: Good PT Short Term Goals Short Term Goals Time Frame: Feb 05, 2017 Transfers (B,C,W/C) (FIM): 4 Gait (FIM): 2 Distance (FIM): 8=189-94 ft Gait Distance Comment: 125' Gait Level of Assist: 4 Gait Assistive Device: FWW PT Usp Goals Usp Goals PT Drill Doctor Goals Time Frame: Feb 16, 2017 Transfers (B,C,W/C) (FIM): 6 Gait (FIM): 6 Gait distance (FIM): 3=150 ft Distance: 300' Gait Level of Assist: 6 Gait Assistive Device: FWW PT Plan Problem List Problem List: Activity Tolerance, Functional Strength, Balance, Gait, Transfer , Bed Mobility Treatment/Plan Treatment Plan: Continue Plan of Care Treatment Plan: Bed Mobility, Education, Functional Activity Cassius, Functional Strength, Gait, Safety, Therapeutic Exercise, Transfers Treatment Duration: Feb 16, 2017 # of days/week 6 Visits Per Week: 11 Pt/Family Agrees w/Plan: Yes Safety Risks/Education Patient Education: Safety Issues Teaching Recipient: Patient Teaching Methods: Discussion Response to Teaching: Reinforcement Needed Discharge Recommendations Therapy D/C Recommendations: Acute Rehab, Home w/ Family Support Time/GCodes Time In: 945 Time Out: 1000 Total Billed Treatment Time: 15 Total Billed Treatment 1 visit [facility] 15 min LAUREANO KWON PT January 26, 2017 10:22
[2017-01-26] MEDS ORDERED: CLON1TAB3 PO (10:38)
[2017-01-26] MEDS ORDERED: SIMV20TA3 PO (10:38)
[2017-01-26] MEDS ORDERED: FLUT16SP22 NS (10:38)
[2017-01-26] MEDS ORDERED: OXYC-471 PO (10:45)
[2017-01-26] MEDS ORDERED: DOCU250C11 PO (10:47)
--- NOTE | 2017-01-26 11:26 | Occ Therapy Progress Note ---
Therapy Progress Note Order received and chart reviewed. Attempted x 2 to see pt.this date. First time, nursing states that pt. nauseated, has just had pain and nausea medication. Request from physician for off the shelf TLSO. Nursing requests for OT to come back. Spoke with PT and then cardiac care unit nurse regarding TLSO. packing and shipping clerk to order this from central supply. Attempted again at designated time to see pt. Pt. had attempted to get up with physical therapy earlier, and had drop in blood pressure. Put back to bed and awaiting 2 units of blood, as well as still nauseated. Nursing requests for OT to hold therapy today due to medical issues. Will attempt to see again tomorrow. 0900 1, visit 1125 1, visit no charge LAURIE HANSON OT January 26, 2017 11:26
[2017-01-26] MEDS: DIAZEPAM INJ 10 MG/2 ML (VALIUM) SYR IV PRN ×2 (11:57→17:27)
--- NOTE | 2017-01-26 13:02 | Physical Therapy Progress Note ---
Therapy Progress Note No PT this p.m. per RN request due to patient's BP and uncontrolled pain. Patient also continues to experience N&V. PT to resume in a.m. LAUREANO KWON PT January 26, 2017 13:02
--- NOTE | 2017-01-26 13:26 | Diagnostic Imaging Report ---
INDICATION: PICC line placement. COMPARISON: 01/26/2017. FINDINGS: A single frontal radiographic view of the chest was obtained and demonstrates interval placement of a left upper extremity PICC line with the tip in the SVC. Post surgical changes of the cervical and thoracolumbar spine are noted. The lung oliver are clear. There is no focal consolidation, large effusion, or pneumothorax. The cardiac silhouette and pulmonary vasculature are within normal limits. IMPRESSION: 1. Left upper extremity PICC line with the tip in the SVC. 2. Otherwise, no acute cardiopulmonary process. Dictated by: Dictated on workstation # [id number]
--- NOTE | 2017-01-26 13:40 | Anesthesia-General Post-Op ---
General Patient Condition Mental Status/LOC: Same as Preop Cardiovascular: Satisfactory Nausea/Vomiting: Present Respiratory: Satisfactory Pain: Uncontrolled Complications: Absent Post Op Complications Complications None Follow Up Care/Instructions Patient Instructions None needed. Anesthesia/Patient Condition Patient Condition Patient is complaining of pain which is expected after her complex surgery, was hypotensive this am and 2 units PRBCs ordered per Dr. Capone. Hb was 10.9 post- op but had dropped to 8 this am. She was able to move from her back up on to her side with minimal pain, so pain seems to be under better control currently. Pt states they placed a PICC line today. She still has some nausea, but seems better than this am per patient. Will be available if needed. SAI MORATAYA DO January 26, 2017 13:40
[2017-01-26] MEDS ORDERED: AMITRIPTYLINE 50 MG (ELAVIL) TAB PO SCH (21:00)
[2017-01-26] MEDS: buPROPion SR 150 MG (WELLBUTRIN SR) TAB PO SCH (21:19)
[2017-01-26] MEDS: AMITRIPTYLINE 25 MG (ELAVIL) TAB PO SCH (21:19)
[2017-01-26] MEDS: POLYETHYLENE GLYCOL 17 GM (MIRALAX) PACK PO SCH (21:19)
[2017-01-26] MEDS: clonazePAM 1 MG (KlonoPIN) TAB PO SCH (21:19)
[2017-01-26 21:36] LABS: BASOPHILS % (AUTO) 0 % (0-10); EOSINOPHILS % (AUTO) 0 % (0-10); LYMPHOCYTES # (AUTO) 0.8 X 10^3 (1.0-4.0); LYMPHOCYTES % (AUTO) 4 % (12-44); MEAN CORPUSCULAR HEMOGLOBIN 30 PG (25-34); MEAN CORPUSCULAR HGB CONC 36 G/DL (32-36); MEAN CORPUSCULAR VOLUME 85 FL (80-99); MEAN PLATELET VOLUME 8.5 FL (7.4-10.4); MONOCYTES # (AUTO) 1.2 X 10^3 (0.0-1.0); MONOCYTES % (AUTO) 6 % (0-12); NEUTROPHILS % (AUTO) 90 % (42-75); PLATELET COUNT 193 10^3/uL (130-400); RED CELL DISTRIBUTION WIDTH 14.1 % (10.0-14.5); WHITE BLOOD COUNT 19.9 10^3/uL (4.3-11.0)
[2017-01-26 21:49] LABS: BAND NEUTROPHILS 8 %; BASOPHILS % (MANUAL) 0 %; EOSINOPHILS % (MANUAL) 0 %; LYMPHOCYTES % (MANUAL) 10 %; NEUTROPHILS % (MANUAL) 80 %
[2017-01-26 21:54] LABS: ANION GAP 5 MMOL/L (5-14); BLOOD UREA NITROGEN 6 MG/DL (7-18); BUN/CREATININE RATIO 9; CALCIUM 7.5 MG/DL (8.5-10.1); CARBON DIOXIDE 21 MMOL/L (21-32); CHLORIDE 100 MMOL/L (98-107); CREATININE SERUM 0.66 MG/DL (0.60-1.30); GFR ESTIMATED > 60; GLUCOSE 111 MG/DL (70-105); POTASSIUM 3.9 MMOL/L (3.6-5.0); SODIUM 126 MMOL/L (135-145)
[2017-01-27] VITALS (15 sets, daily range): BP systolic 86–116; BP diastolic 48–81
[2017-01-27] MEDS: PHENYLEPHRINE INJECTION 10 MG in D5W 250 ML (IVPB) 249 ML IV SCH ×2 (00:33→03:50)
[2017-01-27] MEDS: NS IV 1000 ML 1,000 ML IV SCH ×2 (03:34→12:22)
[2017-01-27] MEDS: fentaNYL INJECTION 100 MCG/2 ML AMP IVP PRN ×5 (03:38→22:28)
[2017-01-27] MEDS: oxyCODONE/APAP 10/325MG (PERCOCET 10) TABLET PO PRN ×2 (03:38→08:18)
[2017-01-27 05:13] LABS: BASOPHILS % (AUTO) 0 % (0-10); EOSINOPHILS % (AUTO) 0 % (0-10); LYMPHOCYTES # (AUTO) 0.9 X 10^3 (1.0-4.0); LYMPHOCYTES % (AUTO) 5 % (12-44); MEAN CORPUSCULAR HEMOGLOBIN 30 PG (25-34); MEAN CORPUSCULAR HGB CONC 35 G/DL (32-36); MEAN CORPUSCULAR VOLUME 85 FL (80-99); MEAN PLATELET VOLUME 8.1 FL (7.4-10.4); MONOCYTES % (AUTO) 6 % (0-12); NEUTROPHILS # (AUTO) 15.8 X 10^3 (1.8-7.8); NEUTROPHILS % (AUTO) 89 % (42-75); PLATELET COUNT 189 10^3/uL (130-400); RED BLOOD COUNT 3.48 10^6/uL (4.35-5.85); RED CELL DISTRIBUTION WIDTH 14.8 % (10.0-14.5); WHITE BLOOD COUNT 17.7 10^3/uL (4.3-11.0)
[2017-01-27 05:28] LABS: ANION GAP 6 MMOL/L (5-14); BLOOD UREA NITROGEN 8 MG/DL (7-18); BUN/CREATININE RATIO 11; CALCIUM 7.5 MG/DL (8.5-10.1); CARBON DIOXIDE 19 MMOL/L (21-32); CHLORIDE 102 MMOL/L (98-107); CREATININE SERUM 0.74 MG/DL (0.60-1.30); GFR ESTIMATED > 60; GLUCOSE 104 MG/DL (70-105); MAGNESIUM 2.1 MG/DL (1.8-2.4); PHOSPHORUS 2.7 MG/DL (2.3-4.7); SODIUM 127 MMOL/L (135-145)
--- NOTE | 2017-01-27 05:50 | Progress Note (SOAP) ---
Subjective Subjective/Events-last exam POD #2, s/p T7-S2 PSF, with L2-3 Anterolateral fusion, L4 PSO, and deformity correction No complaints at this time VSS, afebrile Review of Systems General: No Chills Pulmonary: No Cough Cardiovascular: No: Chest Pain Gastrointestinal: No: Nausea Musculoskeletal: back pain, No: foot pain, leg pain Neurological: No: Numbness Objective Exam Vital Signs Date Time Temp Pulse Resp B/P (MAP) Pulse Ox O2 Delivery O2 Flow Rate FiO2 01/27/17 04:00 97.7 01/27/17 03:00 106 10 115/66 90 01/27/17 02:00 106 14 116/80 88 01/27/17 01:00 98 01/27/17 01:00 98 14 106/65 90 01/27/17 00:00 102 9 109/57 90 01/27/17 00:00 98.9 01/26/17 23:00 100 10 114/73 94 01/26/17 23:00 3.00 01/26/17 22:00 101 9 94/49 95 01/26/17 21:00 105 11 113/69 94 01/26/17 20:00 99.3 01/26/17 20:00 102 15 123/72 88 01/26/17 19:37 99.3 106 21 130/70 01/26/17 19:00 109 12 106/81 99 01/26/17 19:00 109 01/26/17 18:00 86 126/85 01/26/17 17:45 93 14 129/66 98 01/26/17 17:38 102 12 128/71 100 2.00 01/26/17 17:17 99.8 98 15 109/59 96 01/26/17 16:45 95 12 129/73 96 01/26/17 16:41 99.8 101 18 115/75 98 01/26/17 16:00 3.00 01/26/17 16:00 99.7 98 01/26/17 15:50 99.7 01/26/17 15:45 98 7 116/75 99 3.00 01/26/17 14:45 92 13 116/68 96 3.00 01/26/17 14:07 99.7 92 17 124/74 97 01/26/17 13:53 99.5 92 15 113/69 94 01/26/17 13:45 96 11 113/69 3.00 01/26/17 13:00 94 01/26/17 12:00 99.3 98 3.00 01/26/17 12:00 3.00 01/26/17 11:00 93 15 91/58 96 3.00 01/26/17 10:00 112 16 126/69 3.00 01/26/17 09:00 104 17 68/28 3.00 01/26/17 08:00 3.00 01/26/17 08:00 99.0 98 3.00 01/26/17 08:00 92 8 112/57 3.00 01/26/17 07:00 90 01/26/17 07:00 101 14 113/72 3.00 01/26/17 06:45 104 12 96/49 3.00 01/26/17 06:30 103 21 97/72 3.00 01/26/17 06:15 108 17 129/72 3.00 01/26/17 06:00 111 12 105/71 3.00 I & O 01/27/17 07:00 Intake Total 400 ml Output Total 2230 ml Balance -1830 ml Capillary Refill : General Appearance: No Apparent Distress, WD/WN Respiratory: No Accessory Muscle Use, No Respiratory Distress Cardiovascular: Normal Peripheral Pulses Gastrointestinal: non tender, other (Mildly distended, No Smith-De Leon's) Extremity: Non Tender, No Calf Tenderness Neurologic/Psychiatric: Alert, Oriented x3, No Motor/Sensory Deficits, Normal Mood/Affect, last chalker II-XII Norm as Tested Skin: Normal Color, Warm/Dry Lymphatic: No Adenopathy Results Lab Laboratory Tests 01/26/17 12:11: Lab Scanned Report Transfusion Reaction Form 01/26/17 21:15: White Blood Count 19.9H, Red Blood Count 3.80L, Hemoglobin 11.4#L, Hematocrit 32L, Mean Corpuscular Volume 85, Mean Corpuscular Hemoglobin 30, Mean Corpuscular Hemoglobin Concent 36, Red Cell Distribution Width 14.1, Platelet Count 193, Mean Platelet Volume 8.5, Neutrophils (%) (Auto) 90H, Lymphocytes (% ) (Auto) 4L, Monocytes (%) (Auto) 6, Eosinophils (%) (Auto) 0, Basophils (%) ( Auto) 0, Neutrophils # (Auto) 18.0H, Lymphocytes # (Auto) 0.8L, Monocytes # ( Auto) 1.2H, Eosinophils # (Auto) 0.0, Basophils # (Auto) 0.0, Neutrophils % ( Manual) 80, Lymphocytes % (Manual) 10, Monocytes % (Manual) 2, Eosinophils % ( Manual) 0, Basophils % (Manual) 0, Band Neutrophils 8, Blood Morphology Comment NORMAL, Sodium Level 126L, Potassium Level 3.9, Chloride Level 100, Carbon Dioxide Level 21, Anion Gap 5, Blood Urea Nitrogen 6L, Creatinine 0.66, Estimat Glomerular Filtration Rate > 60, BUN/Creatinine Ratio 9, Glucose Level 111H, Calcium Level 7.5L, Magnesium Level 2.0 01/27/17 05:05: White Blood Count 17.7H, Red Blood Count 3.48L, Hemoglobin 10.4L, Hematocrit 30L , Mean Corpuscular Volume 85, Mean Corpuscular Hemoglobin 30, Mean Corpuscular Hemoglobin Concent 35, Red Cell Distribution Width 14.8H, Platelet Count 189, Mean Platelet Volume 8.1, Neutrophils (%) (Auto) 89H, Lymphocytes (%) (Auto) 5L , Monocytes (%) (Auto) 6, Eosinophils (%) (Auto) 0, Basophils (%) (Auto) 0, Neutrophils # (Auto) 15.8H, Lymphocytes # (Auto) 0.9L, Monocytes # (Auto) 1.0, Eosinophils # (Auto) 0.0, Basophils # (Auto) 0.0, Sodium Level 127L, Potassium Level 4.0, Chloride Level 102, Carbon Dioxide Level 19L, Anion Gap 6, Blood Urea Nitrogen 8, Creatinine 0.74, Estimat Glomerular Filtration Rate > 60, BUN/ Creatinine Ratio 11, Glucose Level 104, Calcium Level 7.5L, Magnesium Level 2.1 , Phosphorus Level 2.7 Assessment/Plan Assessment/Plan Assess & Plan/Chief Complaint S/P T7-S2 PSF with deformity correction. L2-3 Anterolateral fusion, L4 PSO Post-operative acute blood loss anemia Acute on chronic hyponatremia chronic immunosuppression for RA Increase activity today Clinical Quality Measures DVT/VTE Risk/Contraindication: Risk Factor Score Per Nursin RFS Level Per Nursing on Admit: 4+=Very High MARIA HANNA January 27, 2017 05:50
[2017-01-27] MEDS: MAGNESIUM 1 GM/100 ML IVPB 100 ML IV SCH (06:03)
[2017-01-27] MEDS: KCL 20 MEQ TAB (K-DUR) PO SCH (06:03)
[2017-01-27] MEDS: POTASSIUM CL 10MEQ/50ML IVPB 50 ML IV SCH (06:03)
[2017-01-27] MEDS: MULTIVIT W/MINERALS TAB (THERAGRAN M) PO SCH (06:03)
--- NOTE | 2017-01-27 06:48 | Pulmonary Progress Note ---
Subjective Subjective/Events-last exam PT is doing much better. Exam Exam Vital Signs Date Time Temp Pulse Resp B/P (MAP) Pulse Ox O2 Delivery O2 Flow Rate FiO2 01/27/17 06:00 104 10 98/48 93 01/27/17 05:00 101 9 97/62 88 01/27/17 04:00 108 8 99/81 89 01/27/17 04:00 97.7 01/27/17 03:00 106 10 115/66 90 01/27/17 02:00 106 14 116/80 88 01/27/17 01:00 98 01/27/17 01:00 98 14 106/65 90 01/27/17 00:00 102 9 109/57 90 01/27/17 00:00 98.9 01/26/17 23:00 100 10 114/73 94 01/26/17 23:00 3.00 01/26/17 22:00 101 9 94/49 95 01/26/17 21:00 105 11 113/69 94 01/26/17 20:00 99.3 01/26/17 20:00 102 15 123/72 88 01/26/17 19:37 99.3 106 21 130/70 01/26/17 19:00 109 12 106/81 99 01/26/17 19:00 109 01/26/17 18:00 86 126/85 01/26/17 17:45 93 14 129/66 98 01/26/17 17:38 102 12 128/71 100 2.00 01/26/17 17:17 99.8 98 15 109/59 96 01/26/17 16:45 95 12 129/73 96 01/26/17 16:41 99.8 101 18 115/75 98 01/26/17 16:00 3.00 01/26/17 16:00 99.7 98 01/26/17 15:50 99.7 01/26/17 15:45 98 7 116/75 99 3.00 01/26/17 14:45 92 13 116/68 96 3.00 01/26/17 14:07 99.7 92 17 124/74 97 01/26/17 13:53 99.5 92 15 113/69 94 01/26/17 13:45 96 11 113/69 3.00 01/26/17 13:00 94 01/26/17 12:00 99.3 98 3.00 01/26/17 12:00 3.00 01/26/17 11:00 93 15 91/58 96 3.00 01/26/17 10:00 112 16 126/69 3.00 01/26/17 09:00 104 17 68/28 3.00 01/26/17 08:00 3.00 01/26/17 08:00 99.0 98 3.00 01/26/17 08:00 92 8 112/57 3.00 01/26/17 07:00 90 01/26/17 07:00 101 14 113/72 3.00 01/26/17 06:45 104 12 96/49 3.00 I & O 01/27/17 07:00 Intake Total 650 ml Output Total 2705 ml Balance -2055 ml General Appearance: No Apparent Distress, WD/WN HEENT: PERRL/EOMI, Normal ENT Inspection, Pharynx Normal Neck: Full Range of Motion, Normal Inspection, Non Tender, Supple, Carotid Bruit Respiratory: Lungs Clear, No Accessory Muscle Use, No Respiratory Distress Cardiovascular: Normal Peripheral Pulses Gastrointestinal: non tender, other (Mildly distended, No Smith-De Leon's) Extremity: Non Tender, No Calf Tenderness Neurologic/Psychiatric: Alert, Oriented x3, No Motor/Sensory Deficits, Normal Mood/Affect, wireless sales consultant II-XII Norm as Tested Skin: Normal Color, Warm/Dry Lymphatic: No Adenopathy Results Lab Laboratory Tests 01/25/17 12:54 01/25/17 15:14 01/26/17 04:20 01/26/17 21:15 01/27/17 05:05 Assessment/Plan Assessment/Plan Lumbar Stenosis with Radiculopathy and Lumbar Kyphosis s/p surgery Hypotension -- resolved - decrease IVF Hyponatremia - chronic-- secondary to Antidepressants -Monitor -change IVF to NS Post surgical anemia Transfer pt to 4th floor. Clinical Quality Measures DVT/VTE Risk/Contraindication: Risk Factor Score Per Nursin RFS Level Per Nursing on Admit: 4+=Very High JENNIFER BULLARD DO January 27, 2017 06:48
--- NOTE | 2017-01-27 07:47 | Diagnostic Imaging Report ---
INDICATION: Postop back surgery. COMPARISON: 01/26/2017. FINDINGS: Single frontal radiographic view of the chest was obtained and demonstrates interval decreased inspiratory volumes with interval development of bibasilar airspace disease suspicious for atelectasis. There is no large effusion or pneumothorax. Cardiac silhouette and pulmonary vasculature within normal limits. Left upper extremity PICC line tip terminates in the right atrium. Extensive postsurgical changes of thoracolumbar spine are again noted. IMPRESSION: 1. Interval decreased inspiratory volumes with probable development of bibasilar atelectasis. Dictated by: Dictated on workstation # [id number]
[2017-01-27] MEDS: DOCUSATE SODIUM 100 MG (COLACE) CAP PO SCH ×2 (09:33→20:39)
[2017-01-27] MEDS: FAMOTIDINE 20MG/2ML IV (PEPCID) IVP SCH ×2 (09:33→20:39)
[2017-01-27] MEDS: SENNOSIDES 8.6 MG (SENOKOT) TAB PO SCH ×2 (09:33→20:39)
--- NOTE | 2017-01-27 09:58 | Physical Therapy Daily Note ---
PT Daily Note-Current Subjective Patient in bed pre tx, agrees to PT, states she has 7/10 back pain, she is very drowsy, groggy. Appearance Patient in bed post tx with nurse call, phone, tray, all needs met. Mental Status Patient Orientation: Person, Place, Situation Attachments: Oxygen, Drains, Bell Catheter, IV Transfers Functional [place] Measure 0=Not Assessed/NA 4=Minimal Assistance 1=Total Assistance 5=Supervision or Setup 2=Maximal Assistance 6=Modified [place] 3=Moderate Assistance 7=Complete IndependenceIRFPAI Quality Coding Scale 6 Independent with activity with or without an assistive device 5 Patient requires set up or clean up by helper. Patient completes activity by themselves 4 Supervision or touching assist (CGA). [place] provide cues , steadying assist 3 The helper provides less than half the effort to complete the activity 2 The helper provides more than half the effort to complete the activity 1 Dependent. The helper does all the effort to complete an activity 7 Patient refused to complete or attempt activity 9 The patient did not perform the activity before the current illness or injury 88 Not attempted due to Medical conditions or safety concerns Transfers (B, C, W/C) (FIM): 4 Scootin Rollin Supine to/from Sit: 4 Sit to/from Stand: 4 Patient very unsteady upon standing Treatments Patient transferred supine to sit with min assist and sit to stand with min assist, she stood for about 10 min, her O2 stayed in the upper 90's, but her diastolic blood pressure did not get over 60 Assessment Current Status: Fair Progress improved mobility, patient had trouble keeping her eyes open, still has low blood pressure PT Short Term Goals Short Term Goals Time Frame: Feb 05, 2017 Transfers (B,C,W/C) (FIM): 4 Gait (FIM): 2 Distance (FIM): 8=591-27 ft Gait Distance Comment: 125' Gait Level of Assist: 4 Gait Assistive Device: FWW PT Rework Operator Goals Rework Operator Goals PT Rework Operator Goals Time Frame: Feb 16, 2017 Transfers (B,C,W/C) (FIM): 6 Gait (FIM): 6 Gait distance (FIM): 3=150 ft Distance: 300' Gait Level of Assist: 6 Gait Assistive Device: FWW PT Plan Problem List Problem List: Activity Tolerance, Functional Strength, Safety, Balance, Gait, Transfer, Bed Mobility Treatment/Plan Treatment Plan: Continue Plan of Care Treatment Plan: Bed Mobility, Education, Functional Activity Cassius, Functional Strength, Gait, Safety, Therapeutic Exercise, Transfers Treatment Duration: Feb 16, 2017 Visits Per Week: 11 Safety Risks/Education Patient Education: Transfer Techniques, Correct Positioning, Safety Issues Teaching Recipient: Patient Teaching Methods: Demonstration, Discussion Response to Teaching: Reinforcement Needed Time/GCodes Time In: 935 Time Out: 955 Total Billed Treatment Time: 20 Total Billed Treatment 1 visit [facility] ELIF LOPEZ PT January 27, 2017 09:58
--- NOTE | 2017-01-27 10:27 | Progress Note-Hospitalist ---
Progress Note HPI/CC on Admission CC: Medical management of hypotension w/N/V following complex spine surgery HPI: This is a 61yoWF patient of Dr Lee's w/h/o RA on biological immunosuppressives, migraines, HTN and HLP with hypothyroidism that presents to the ICU after an uncomplicated but very complex spinal surgery that resulted in 2000 EBL which necessitated 2 units of blood and 3300cc of IVF while in surgery. She is still requiring pressor therapy along with aggressive IVF for hypotension and currently having more N/V so I ordered a Scopolamine patch to help with that issue. She minimally converses due to N/V. She reports the pain is about the same and PT was unable to initiate therapy due to hypotension of 68 /38 when she was upright on the bed. I reviewed her home meds and H&P. Progress Notes/Assess & Plan Date Seen 01/27/17 Admission Dx/Process Assessment: Hypotension following extensive spine surgery with EBL 2000cc s/p 2 units of blood and 3300cc IVF while in OR now requiring pressor therapy and IVF Severe and recurrent nausea and vomiting requiring Scopolamine patch and Zofran RA on biological immunosuppressives Hypothyroidism HTN as out pt HLP Migraines post op anemia due to blood loss Diagonsis/Assessment & Plan Patient doing much better and off pressor therapy and aggressive IV fluids since hypotension is now resolved and blood pressure is 100/60 Daughter informed me that she has been self-medicating out of her purse with Percocet and that is consistent with issues that she had yesterday with hypotension and overall oversedation so the purses now walked up in her daughter 's truck and will not occur again and I did update spine surgery service Did receive 4 units of packed red blood cell transfusions yesterday without event Good urinary output today and overall her blood work looks much improved but hyponatremia continues No fever, vital signs stable, pleasant, improved, oriented 3 Regular rate and rhythm, clear to auscultation bilaterally Significant serosanguineous drainage from spinal surgery dressing soaking the entire bed in process of changing bedclothes No edema and normal range of motion and no loss of sensation in lower extremities Laboratory Tests 01/26/17 21:15 01/27/17 05:05 Assessment: Hypotension following extensive spine surgery POD # 1 with EBL 2000cc s/p 2 units of blood and 3300cc IVF while in OR s/p required pressor therapy and IVF yesterday now doing much better Severe and recurrent nausea and vomiting requiring Scopolamine patch and Zofran now resolved RA on biological immunosuppressives sees female Rheumatology that she can't remember name of Hypothyroidism HTN as out pt HLP Migraines Post op anemia due to blood loss s/p 4 units of blood Self-medicating out of purse with Percocet per daughter but c/w issues she had yesterday now purse is in locked up truck of daughter's Plan: Pain control IVF Hold immunosuppressives Home meds when able Scopolamine patch and Zofran to be maintained Start PT/OT HAN LOPEZ DO January 27, 2017 10:27
--- NOTE | 2017-01-27 14:52 | Physical Therapy Daily Note ---
PT Daily Note-Current Subjective Patient in bed sleeping pre tx, agrees to PT, has pain of 5/10 in her back. Patient is very lethargic, has a hard time keeping her eyes open. Appearance Patient BTB post tx with nurse call, phone, tray, all needs met. Mental Status Patient Orientation: Person, Place, Situation Attachments: Oxygen, IV Transfers Functional [place] Measure 0=Not Assessed/NA 4=Minimal Assistance 1=Total Assistance 5=Supervision or Setup 2=Maximal Assistance 6=Modified [place] 3=Moderate Assistance 7=Complete IndependenceIRFPAI Quality Coding Scale 6 Independent with activity with or without an assistive device 5 Patient requires set up or clean up by helper. Patient completes activity by themselves 4 Supervision or touching assist (CGA). [place] provide cues , steadying assist 3 The helper provides less than half the effort to complete the activity 2 The helper provides more than half the effort to complete the activity 1 Dependent. The helper does all the effort to complete an activity 7 Patient refused to complete or attempt activity 9 The patient did not perform the activity before the current illness or injury 88 Not attempted due to Medical conditions or safety concerns Transfers (B, C, W/C) (FIM): 4 Scootin Rollin Supine to/from Sit: 5 Sit to/from Stand: 4 practiced a log roll, patient has weak legs upon standing, she needs to sit for a few minutes due to dizziness and let her head clear Gait Training Gait (FIM): 1 Distance: 3'x3 Gait Level of Assist: 4 Gait Persons Needed: 1 Gait Assistive Device: FWW Patient ambulated 3' x3 forward and back to the bed, very weak and lethargic Exercises Seated Therapy Exercises: Ankle pumps, Long arc quads Seated Reps: 20 Patient stated she could do no more exercises and had to lay down. Treatments bed mobility and transfers, ambulation, functional strengthening Assessment Current Status: Fair Progress improved ambulation PT Short Term Goals Short Term Goals Time Frame: Feb 05, 2017 Transfers (B,C,W/C) (FIM): 4 Gait (FIM): 2 Distance (FIM): 3=320-64 ft Gait Distance Comment: 125' Gait Level of Assist: 4 Gait Assistive Device: FWW PT Director Of Undergraduate Admissions Goals Director Of Undergraduate Admissions Goals PT [facility] Goals Time Frame: Feb 16, 2017 Transfers (B,C,W/C) (FIM): 6 Gait (FIM): 6 Gait distance (FIM): 3=150 ft Distance: 300' Gait Level of Assist: 6 Gait Assistive Device: FWW PT Plan Problem List Problem List: Activity Tolerance, Functional Strength, Safety, Balance, Gait, Transfer, Bed Mobility Treatment/Plan Treatment Plan: Continue Plan of Care Treatment Plan: Bed Mobility, Education, Functional Activity Cassius, Functional Strength, Gait, Safety, Therapeutic Exercise, Transfers Treatment Duration: Feb 16, 2017 Visits Per Week: 11 Safety Risks/Education Patient Education: Gait Training, Transfer Techniques, Correct Positioning, Safety Issues Teaching Recipient: Patient Teaching Methods: Demonstration, Discussion Response to Teaching: Reinforcement Needed Time/GCodes Time In: 1420 Time Out: 1435 Total Billed Treatment Time: 15 Total Billed Treatment 1 visit GT 15' ELIF LOPEZ PT January 27, 2017 14:52
--- NOTE | 2017-01-27 15:36 | Occupational Therapy Eval ---
OT Evaluation-General/PLF Medical Diagnosis Admission Date January 25, 2017 at 05:47 Medical Diagnosis: L2-3 XLIF and T7-pelvis with L4 PSO Onset Date: January 25, 2017 Therapy Diagnosis Therapy Diagnosis: Weakness, decreased ADL skills Height/Weight Height (Feet): 5 Height (Inches): 2.00 Weight (Pounds): 130 Weight (Ounces): 4.0 Precautions Precautions/Isolations: Fall Prevention, Standard Precautions Safety Interventions: Reorient-PRN Weight Bear Status Weight Bearing Restriction: Weight Bearing/Tolerated Location Restriction: LE Bilateral Pt. has TLSO in room that is to be on when up. Referral Physician: Jesus Referral Reason: Activity Tolerance, Self Care, Evaluation/Treatment, Strengthening/ROM Medical History Pertinent Medical History: GERD, Rheumatoid Arthritis Additional Medical History bipolar, depression, diverticulosis Current History Pt. had surgery for lumbar kyphosis, sagittal imbalance. Reviewed History: Yes Social History Home: Single Level Current Living Status: Spouse Entry Into Home: Stairs With Railing Steps Into Home: 5 ADL-Prior Level of Function ADL PLOF Comments Pt. states that she was independent with basic self care needs. Pt. still drives. States that her spouse has cancer, and that she takes care of him. DME/Equipment: Bath Chair, Tub/Shower DME/Equipment Comments Pt. has a walker but does not use it. States that she also has a cane. Drive Self: Yes OT Current Status Subjective Pt. is slurring words and has difficulty articulating what she needs. Pt. is somewhat confused. States that she is hungry, but doesn't know how to order. ( This was explained to her by previous PT.) Pt. states that she needs her glasses, but can't stay on track to find them. Appearance Pt. groggy and slightly confused. Mental Status/Objective Patient Orientation: Unable to Assess Attachments: Bell Catheter, IV Current Upper Extremity ROM WFL ADL-Treatment Functional [place] Measure 0=Not Assessed/NA 4=Minimal Assistance 1=Total Assistance 5=Supervision or Setup 2=Maximal Assistance 6=Modified [place] 3=Moderate Assistance 7=Complete IndependenceIRFPAI Quality Coding Scale 6 Independent with activity with or without an assistive device 5 Patient requires set up or clean up by helper. Patient completes activity by themselves 4 Supervision or touching assist (CGA). [place] provide cues , steadying assist 3 The helper provides less than half the effort to complete the activity 2 The helper provides more than half the effort to complete the activity 1 Dependent. The helper does all the effort to complete an activity 7 Patient refused to complete or attempt activity 9 The patient did not perform the activity before the current illness or injury 88 Not attempted due to Medical conditions or safety concerns Grooming (FIM): 5 (Pt. sees her brush and thinks it's her glasses case, which she wants. Grabs it and states, "here it is." Starts to brush her hair with SBA.) Lower Body Dressing (FIM): 2 (Pt. unable to doff/don socks.) Toileting (FIM): 1 (Catheter. Pt. is also unaware of catheter tube, and requires constant cues to be aware of it, as to not pull it out.) Transfers (B, C, W/C) (FIM): 4 (Pt. is able to transfer supine-sit, and sit- stand with CGA due to safety concerns. Is able to get feet back into bed to go back supine. However, seems agitated that OT asked her to do this. States, "I have had to do this all day." ) Other Treatments Pt. is able to transfer to side of bed, stand, and take side steps toward HOB. Noted that sheets were wet. OT changed them. Pt. is somewhat impulsive. Does not seem aware of IV line or catheter. Pt. requires cues to be aware of them. Pt. does not report pain, but does grimace with movement. Pt. states that she is hungry. OT calls for her,, and she is on clear liquid diet. Order clear liquid tray. Nursing notified. Bed alarm set, railings up, and pt. has call light. Education OT Patient Education: Correct positioning, Modified ADL techniques, Progress toward Goal/Update tx plan, Purpose of tx/functional activities, Reviewed precautions, Rehab process, Transfer techniques Teaching Recipient: Patient Teaching Methods: Demonstration, Discussion Response to Teaching: Verbalize Understanding, Return Demonstration OT Short Term Goals Short Term Goals Time Frame: February 03, 2017 Eating(FIM): 5 Grooming(FIM): 5 Bathing(FIM): 4 Upper Body Dressing(FIM): 4 Lower Body Dressing(FIM): 4 Toileting(FIM): 5 Transfers (B,C,W/C) (FIM): 5 Toilet/Commode Transfer(FIM): 5 Shower Transfer(FIM): 4 Additional Short Term Goals: 1-Demonstrate ADL Tasks, 2-Verbalize Understanding , 3-ImproveStrength/Cassius 1=Demonstrate adherence to instructed precautions during ADL tasks. 2=Patient will verbalize/demonstrate understanding of assistive devices/ modifications for ADL. 3=Patient will improve strength/tolerance for activity to enable patient to perform ADL's. OT Shelter Goals Shelter Goals Time Frame: Feb 10, 2017 Eating (FIM): 6 Grooming(FIM): 6 Bathing(FIM): 5 Upper Body Dressing(FIM): 6 Lower Body Dressing(FIM): 6 Toileting(FIM): 6 Transfers (B,C,W/C) (FIM): 6 Toilet/Commode Transfer(FIM): 6 Shower Transfer(FIM): 5 Additional Goals: 1-Demonstrate ADL Tasks, 2-Verbalize Understanding, 3- ImproveStrength/Cassius 1=Demonstrate adherence to instructed precautions during ADL tasks. 2=Patient will verbalize/demonstrate understanding of assistive devices/ modifications for ADL. 3=Patient will improve strength/tolerance for activity to enable patient to perform ADL's. OT Education/Plan Problem List/Assessment Assessment: Decreased Activ Tolerance, Decreased Safety Aware, Decreased UE Strength, Dependent Transfers, Impaired Bed Mobility, Impaired Cognition, Impaired Funct Balance, Impaired I ADL's, Impaired Self-Care Skills Discharge Recommendations Plan/Recommendations: Continue POC Therapy D/C Recommendations: Acute Rehab Equpiment Recommendations-D/C: Extended Bath Bench, Hip Kit Barriers to Progress cognition at this time. Target Placement Pt. might benefit from inpatient rehab. Patient/Family Goals Pt. is unable to state them at this time. Treatment Plan/Plan of Care Treatment,Training & Education: Yes Patient would benefit from OT for education, treatment and training to promote independence in ADL's, mobility, safety and/or upper extremity function for ADL' s. Plan of Care: ADL Retraining, Functional Mobility, UE Funct Exercise/Act Treatment Duration: Feb 10, 2017 # of days/week 5-6 Visits Per Week: 5-6 Agreement: Yes Rehab Potential: Good Time/GCodes Start Time: 15:10 Stop Time: 15:25 Total Time Billed (hr/min): 15 Billed Treatment Time 1, EVhigh x 15minutes LAURIE HANSON OT January 27, 2017 15:36
[2017-01-27] MEDS: clonazePAM 1 MG (KlonoPIN) TAB PO SCH (20:39)
[2017-01-27] MEDS: AMITRIPTYLINE 25 MG (ELAVIL) TAB PO SCH (20:39)
[2017-01-27] MEDS: buPROPion SR 150 MG (WELLBUTRIN SR) TAB PO SCH (20:39)
[2017-01-27] MEDS: POLYETHYLENE GLYCOL 17 GM (MIRALAX) PACK PO SCH (20:39)
[2017-01-28] VITALS (7 sets, daily range): BP systolic 126–167; BP diastolic 73–88
[2017-01-28] MEDS: NS IV 1000 ML 1,000 ML IV SCH (03:06)
[2017-01-28] MEDS: fentaNYL INJECTION 100 MCG/2 ML AMP IVP PRN ×4 (04:22→22:45)
[2017-01-28 06:00] LABS: BASOPHILS % (AUTO) 0 % (0-10); EOSINOPHILS % (AUTO) 0 % (0-10); LYMPHOCYTES # (AUTO) 0.5 X 10^3 (1.0-4.0); LYMPHOCYTES % (AUTO) 3 % (12-44); MEAN CORPUSCULAR HEMOGLOBIN 30 PG (25-34); MEAN CORPUSCULAR HGB CONC 34 G/DL (32-36); MEAN CORPUSCULAR VOLUME 87 FL (80-99); MEAN PLATELET VOLUME 8.2 FL (7.4-10.4); MONOCYTES % (AUTO) 7 % (0-12); NEUTROPHILS # (AUTO) 13.5 X 10^3 (1.8-7.8); NEUTROPHILS % (AUTO) 90 % (42-75); PLATELET COUNT 165 10^3/uL (130-400); RED BLOOD COUNT 3.11 10^6/uL (4.35-5.85)
[2017-01-28] MEDS: MULTIVIT W/MINERALS TAB (THERAGRAN M) PO SCH (06:00)
[2017-01-28 06:12] LABS: ANION GAP 8 MMOL/L (5-14); BLOOD UREA NITROGEN 6 MG/DL (7-18); BUN/CREATININE RATIO 10; CALCIUM 7.3 MG/DL (8.5-10.1); CARBON DIOXIDE 19 MMOL/L (21-32); CHLORIDE 100 MMOL/L (98-107); CREATININE SERUM 0.59 MG/DL (0.60-1.30); GFR ESTIMATED > 60; GLUCOSE 92 MG/DL (70-105); MAGNESIUM 1.4 MG/DL (1.8-2.4); POTASSIUM 4.2 MMOL/L (3.6-5.0); SODIUM 127 MMOL/L (135-145)
--- NOTE | 2017-01-28 06:51 | Pulmonary Progress Note ---
Subjective Subjective/Events-last exam pt has no complaints. pain is controlled. Exam Exam Vital Signs Date Time Temp Pulse Resp B/P (MAP) Pulse Ox O2 Delivery O2 Flow Rate FiO2 01/28/17 04:20 97.0 100 18 126/78 95 2.00 01/28/17 00:13 97.7 109 18 133/82 95 2.00 01/27/17 21:00 2.00 01/27/17 19:44 97.6 113 18 109/72 95 2.00 01/27/17 15:48 97.7 109 22 110/72 92 01/27/17 12:08 98.1 101 16 114/67 96 01/27/17 11:00 102 6 97/50 01/27/17 10:00 106 23 96/56 01/27/17 09:00 110 9 86/58 01/27/17 08:00 113 17 96/53 01/27/17 08:00 99.9 01/27/17 07:00 98 15 99/57 95 01/27/17 07:00 108 I & O 01/28/17 07:00 Intake Total 3830 ml Output Total 1550 ml Balance 2280 ml General Appearance: No Apparent Distress, WD/WN HEENT: PERRL/EOMI, Normal ENT Inspection, Pharynx Normal Neck: Full Range of Motion, Normal Inspection, Non Tender, Supple, Carotid Bruit Respiratory: Lungs Clear, No Accessory Muscle Use, No Respiratory Distress Cardiovascular: Normal Peripheral Pulses Gastrointestinal: non tender, other (Mildly distended, No Smith-De Leon's) Extremity: Non Tender, No Calf Tenderness Neurologic/Psychiatric: Alert, Oriented x3, No Motor/Sensory Deficits, Normal Mood/Affect, radio frequency design engineer II-XII Norm as Tested Skin: Normal Color, Warm/Dry Lymphatic: No Adenopathy Results Lab Laboratory Tests 01/26/17 21:15 01/27/17 05:05 01/28/17 05:45 Assessment/Plan Assessment/Plan Lumbar Stenosis with Radiculopathy and Lumbar Kyphosis s/p surgery Hypotension -- resolved - decrease IVF to KVO Hyponatremia - chronic-- secondary to Antidepressants - improving -Monitor Post surgical anemia - monitor Hypophos, hypomag - replace Atelectasis with hypoxia -start easy pap breathing txs -IS -increase activity as tolerated -titrate oxygen as tolerated I d/w RT and patient regarding IS, easyPAP and deep breathing coughing 232 Clinical Quality Measures DVT/VTE Risk/Contraindication: Risk Factor Score Per Nursin RFS Level Per Nursing on Admit: 4+=Very High JENNIFER BULLARD DO January 28, 2017 06:51
[2017-01-28] MEDS ORDERED: SODIUM PHOSPHATE INJ 30 MM in NS (IVPB) 250 ML IV NR (06:53)
[2017-01-28] MEDS ORDERED: RT-ALBUTEROL/IPRATROPIUM 3 ML (DUONEB) VIAL INH PRN (07:00)
[2017-01-28] MEDS: MAGNESIUM 1 GM/100 ML IVPB 100 ML IV SCH ×2 (07:04→08:34)
[2017-01-28] MEDS: RT-ALBUTEROL/IPRATROPIUM 3 ML (DUONEB) VIAL INH SCH ×4 (07:11→18:54)
--- NOTE | 2017-01-28 08:22 | Progress Note-Hospitalist ---
Progress Note HPI/CC on Admission CC: Medical management of hypotension w/N/V following complex spine surgery HPI: This is a 61yoWF patient of Dr Lee's w/h/o RA on biological immunosuppressives, migraines, HTN and HLP with hypothyroidism that presents to the ICU after an uncomplicated but very complex spinal surgery that resulted in 2000 EBL which necessitated 2 units of blood and 3300cc of IVF while in surgery. She is still requiring pressor therapy along with aggressive IVF for hypotension and currently having more N/V so I ordered a Scopolamine patch to help with that issue. She minimally converses due to N/V. She reports the pain is about the same and PT was unable to initiate therapy due to hypotension of 68 /38 when she was upright on the bed. I reviewed her home meds and H&P. Progress Notes/Assess & Plan Date Seen 01/28/17 Admission Dx/Process Assessment: Hypotension following extensive spine surgery with EBL 2000cc s/p 2 units of blood and 3300cc IVF while in OR now requiring pressor therapy and IVF Severe and recurrent nausea and vomiting requiring Scopolamine patch and Zofran RA on biological immunosuppressives Hypothyroidism HTN as out pt HLP Migraines post op anemia due to blood loss Diagonsis/Assessment & Plan Patient doing much better but declines to have bowel regimen until she goes home and very resistant to IS instructions No increased pain at this time No fever, vital signs stable, semi-pleasant, improved, oriented 3 Regular rate and rhythm, clear to auscultation bilaterally No edema and normal range of motion and no loss of sensation in lower extremities Laboratory Tests 01/28/17 05:45 Assessment: Hypotension following extensive spine surgery POD # 2 with EBL 2000cc s/p 2 units of blood and 3300cc IVF while in OR s/p required pressor therapy and IVF now doing much better Severe and recurrent nausea and vomiting requiring Scopolamine patch and Zofran now resolved RA on biological immunosuppressives sees female Rheumatology that she can't remember name of Hypothyroidism HTN as out pt HLP Migraines Post op anemia due to blood loss s/p 4 units of blood Self-medicating out of purse with Percocet per daughter but c/w issues she had yesterday now purse is in locked up truck of daughter's Hyponatremia on fluid restriction Plan: Pain control IVF Hold immunosuppressives Home meds when able Scopolamine patch and Zofran to be maintained Start PT/OT Fluid restriction HAN LOPEZ DO January 28, 2017 08:22
[2017-01-28] MEDS: FAMOTIDINE 20MG/2ML IV (PEPCID) IVP SCH ×2 (08:33→20:03)
[2017-01-28] MEDS: SENNOSIDES 8.6 MG (SENOKOT) TAB PO SCH ×2 (08:34→20:04)
[2017-01-28] MEDS: DOCUSATE SODIUM 100 MG (COLACE) CAP PO SCH ×2 (08:34→20:04)
[2017-01-28] MEDS: DIAZEPAM INJ 10 MG/2 ML (VALIUM) SYR IV PRN (08:47)
--- NOTE | 2017-01-28 10:04 | Diagnostic Imaging Report ---
EXAM: Postoperative radiograph of the chest. INDICATION: Postoperative evaluation. COMPARISON: 01/27/17 FINDINGS: Bibasilar infiltrates or atelectasis are again seen, increased from the previous study. The overall lung volume is improved, however. The heart size is mildly enlarged. No significant effusion. No pneumothorax. There is a left subclavian central line. The tip of this line is obscured by overlying thoracic spine fusion hardware. This extends to the lumbar spine and well below the level of this image. There is hardware of anterior and posterior cervical spine fusion. IMPRESSION: Slightly increased bibasilar infiltrate or atelectasis. Dictated by: Dictated on workstation # [id number]
--- NOTE | 2017-01-28 10:29 | Physical Therapy Daily Note ---
PT Daily Note-Current Subjective Patient in bed pre tx, agrees to PT, patient is confused and does not know what day it is or even what time of day, she thinks it is late afternoon. Patient states she has back pain of 9/10. Appearance Patient in bed post tx with nurse call, phone, tray, all needs met. Nursing notified to put bed alarm back on. Mental Status Patient Orientation: Confused Attachments: Oxygen, IV 2L of O2 nasal canula, TLSO Transfers Functional [place] Measure 0=Not Assessed/NA 4=Minimal Assistance 1=Total Assistance 5=Supervision or Setup 2=Maximal Assistance 6=Modified [place] 3=Moderate Assistance 7=Complete IndependenceIRFPAI Quality Coding Scale 6 Independent with activity with or without an assistive device 5 Patient requires set up or clean up by helper. Patient completes activity by themselves 4 Supervision or touching assist (CGA). [place] provide cues , steadying assist 3 The helper provides less than half the effort to complete the activity 2 The helper provides more than half the effort to complete the activity 1 Dependent. The helper does all the effort to complete an activity 7 Patient refused to complete or attempt activity 9 The patient did not perform the activity before the current illness or injury 88 Not attempted due to Medical conditions or safety concerns Transfers (B, C, W/C) (FIM): 4 Scootin Rollin Supine to/from Sit: 5 Sit to/from Stand: 4 CGA for sit to stand, patient has a TLSO now Gait Training Gait (FIM): 1 Distance: 20'x2 Gait Level of Assist: 4 Gait Persons Needed: 1 Gait Assistive Device: FWW Patient fatigues quickly, no complaints of dizziness or light headedness Treatments bed mobility, transfers, ambulation Assessment Current Status: Fair Progress improved ambulation, but patient continues to be very lethargic and confused PT Short Term Goals Short Term Goals Time Frame: Feb 05, 2017 Transfers (B,C,W/C) (FIM): 5 Gait (FIM): 2 Distance (FIM): 9=237-88 ft Gait Distance Comment: 125' Gait Level of Assist: 4 Gait Assistive Device: FWW PT Nursing Home Goals Fiberglass Technician Goals PT Nursing Home Goals Time Frame: Feb 16, 2017 Transfers (B,C,W/C) (FIM): 6 Gait (FIM): 6 Gait distance (FIM): 3=150 ft Distance: 300' Gait Level of Assist: 6 Gait Assistive Device: FWW PT Plan Problem List Problem List: Activity Tolerance, Functional Strength, Safety, Balance, Gait, Transfer, Bed Mobility Treatment/Plan Treatment Plan: Continue Plan of Care Treatment Plan: Bed Mobility, Education, Functional Activity Cassius, Functional Strength, Gait, Safety, Therapeutic Exercise, Transfers Treatment Duration: Feb 16, 2017 Visits Per Week: 11 Safety Risks/Education Patient Education: Gait Training, Transfer Techniques, Correct Positioning, Reviewed Don/Doff Brace, Safety Issues Teaching Recipient: Patient Teaching Methods: Demonstration, Discussion Response to Teaching: Reinforcement Needed Time/GCodes Time In: 1000 Time Out: 1020 Total Billed Treatment Time: 20 Total Billed Treatment 1 visit GT 20' ELIF LOPEZ PT January 28, 2017 10:29
--- NOTE | 2017-01-28 12:29 | Progress Note (SOAP) ---
Subjective Subjective/Events-last exam Confused, not wanting to follow fluid restriction. Pain ok. Objective Exam Vital Signs Date Time Temp Pulse Resp B/P (MAP) Pulse Ox O2 Delivery O2 Flow Rate FiO2 01/28/17 12:00 97.0 108 20 155/79 93 2.00 01/28/17 10:59 3.00 01/28/17 07:28 96.9 109 22 132/73 93 2.00 01/28/17 07:13 84 01/28/17 04:20 97.0 100 18 126/78 95 2.00 01/28/17 00:13 97.7 109 18 133/82 95 2.00 01/27/17 21:00 2.00 01/27/17 19:44 97.6 113 18 109/72 95 2.00 01/27/17 15:48 97.7 109 22 110/72 92 I & O 01/28/17 07:00 Intake Total 3830 ml Output Total 1550 ml Balance 2280 ml Capillary Refill : General Appearance: Other (sedate, follows commands, no complaints) Neck: Full Range of Motion Respiratory: Lungs Clear, No Accessory Muscle Use, No Respiratory Distress Cardiovascular: Normal Peripheral Pulses Gastrointestinal: normal bowel sounds, non tender, soft Neurologic/Psychiatric: Alert, Oriented x3, No Motor/Sensory Deficits Skin: Warm/Dry, Other (dressing clean/dry/intact) Results Lab Laboratory Tests 01/28/17 05:45: White Blood Count 15.0H, Red Blood Count 3.11L, Hemoglobin 9.2L, Hematocrit 27L , Mean Corpuscular Volume 87, Mean Corpuscular Hemoglobin 30, Mean Corpuscular Hemoglobin Concent 34, Red Cell Distribution Width 15.0H, Platelet Count 165, Mean Platelet Volume 8.2, Neutrophils (%) (Auto) 90H, Lymphocytes (%) (Auto) 3L , Monocytes (%) (Auto) 7, Eosinophils (%) (Auto) 0, Basophils (%) (Auto) 0, Neutrophils # (Auto) 13.5H, Lymphocytes # (Auto) 0.5L, Monocytes # (Auto) 1.0, Eosinophils # (Auto) 0.0, Basophils # (Auto) 0.0, Sodium Level 127L, Potassium Level 4.2, Chloride Level 100, Carbon Dioxide Level 19L, Anion Gap 8, Blood Urea Nitrogen 6L, Creatinine 0.59L, Estimat Glomerular Filtration Rate > 60, BUN /Creatinine Ratio 10, Glucose Level 92, Calcium Level 7.3L, Phosphorus Level 2.0L, Magnesium Level 1.4L Assessment/Plan Assessment/Plan Assess & Plan/Chief Complaint Post-Laminectomy Kyphosis Lumbar Stenosis, Neural Canal disk/osseous structures Lumbar Radiculopathy Lumbar Non-union Mechanical Complication of Hardware Acute Blood Loss Anemia Hyponatremia Plan:Continue pain control Will decrease Patch, to get less sedation Encouraged why she needs fluid restriction Xrays of spine Clinical Quality Measures DVT/VTE Risk/Contraindication: Risk Factor Score Per Nursin RFS Level Per Nursing on Admit: 4+=Very High ANAHI POLANCO MD January 28, 2017 12:29
--- NOTE | 2017-01-28 14:25 | Physical Therapy Daily Note ---
PT Daily Note-Current Subjective Patient in bed pre tx, sleeping with lunch tray in front of her. She states she has 9/10 pain but is willing to walk. Patient has a TLSO that will need some adjusting after tx. Appearance Patient BTB post tx with nurse call, phone, tray, all needs met. Patient was very lethargic during tx and upset because of her fluid restriction. Mental Status Patient Orientation: Person, Confused Attachments: Oxygen, Bell Catheter, IV Transfers Functional [place] Measure 0=Not Assessed/NA 4=Minimal Assistance 1=Total Assistance 5=Supervision or Setup 2=Maximal Assistance 6=Modified [place] 3=Moderate Assistance 7=Complete IndependenceIRFPAI Quality Coding Scale 6 Independent with activity with or without an assistive device 5 Patient requires set up or clean up by helper. Patient completes activity by themselves 4 Supervision or touching assist (CGA). [place] provide cues , steadying assist 3 The helper provides less than half the effort to complete the activity 2 The helper provides more than half the effort to complete the activity 1 Dependent. The helper does all the effort to complete an activity 7 Patient refused to complete or attempt activity 9 The patient did not perform the activity before the current illness or injury 88 Not attempted due to Medical conditions or safety concerns Transfers (B, C, W/C) (FIM): 4 Scootin Rollin Supine to/from Sit: 4 Sit to/from Stand: 4 Patient needed min assist for supine to sit , cues for safety and hand placement , can be impulsive Gait Training Gait (FIM): 4 Distance: 175' Gait Level of Assist: 4 Gait Persons Needed: 1 Gait Assistive Device: FWW a second person was needed just to help with attachments, slow ambulation, Treatments bed mobility and transfers, ambulation Assessment Current Status: Fair Progress improving ambulation PT Short Term Goals Short Term Goals Time Frame: Feb 05, 2017 Transfers (B,C,W/C) (FIM): 5 Gait (FIM): 2 Distance (FIM): 8=606-34 ft Gait Distance Comment: 125' Gait Level of Assist: 4 Gait Assistive Device: FWW PT Alf Goals Alf Goals PT Alf Goals Time Frame: Feb 16, 2017 Transfers (B,C,W/C) (FIM): 6 Gait (FIM): 6 Gait distance (FIM): 3=150 ft Distance: 300' Gait Level of Assist: 6 Gait Assistive Device: FWW PT Plan Problem List Problem List: Activity Tolerance, Functional Strength, Safety, Balance, Gait, Transfer, Bed Mobility Treatment/Plan Treatment Plan: Continue Plan of Care Treatment Plan: Bed Mobility, Education, Functional Activity Cassius, Functional Strength, Gait, Safety, Therapeutic Exercise, Transfers Treatment Duration: Feb 16, 2017 Visits Per Week: 11 Safety Risks/Education Patient Education: Gait Training, Transfer Techniques, Correct Positioning, Reviewed Don/Doff Brace, Safety Issues Teaching Recipient: Patient Teaching Methods: Demonstration, Discussion Response to Teaching: Reinforcement Needed Time/GCodes Time In: 1410 Time Out: 1425 Total Billed Treatment Time: 15 Total Billed Treatment 1 visit GT 15' ELIF LOPEZ PT January 28, 2017 14:25
[2017-01-28] MEDS: oxyCODONE/APAP 10/325MG (PERCOCET 10) TABLET PO PRN ×2 (15:24→22:34)
--- NOTE | 2017-01-28 15:39 | Occ Therapy Progress Note ---
Therapy Progress Note 5835 Pt refused OT, stating that she had already been up out of bed two times and just wanted to sleep. Pt left in bed, all needs met. ALLY RESTREPO OT January 28, 2017 15:39
--- NOTE | 2017-01-28 16:36 | Diagnostic Imaging Report ---
INDICATION: Post fusion for scoliosis. FINDINGS: There is posterior fusion hardware from the mid thoracic spine through the lumbar spine and extending into the sacrum with screws through the SI joints seen. There is also anterior fusion hardware noted. There is satisfactory alignment of the spine. No significant scoliosis is seen. There is also anterior and posterior fusion hardware in the cervical spine noted. IMPRESSION: Extensive spine fusion as described in good alignment. Dictated by: Dictated on workstation # [id number]
[2017-01-28] MEDS: POLYETHYLENE GLYCOL 17 GM (MIRALAX) PACK PO SCH (20:03)
[2017-01-28] MEDS: clonazePAM 1 MG (KlonoPIN) TAB PO SCH (20:04)
[2017-01-28] MEDS: buPROPion SR 150 MG (WELLBUTRIN SR) TAB PO SCH (20:04)
[2017-01-28] MEDS: AMITRIPTYLINE 25 MG (ELAVIL) TAB PO SCH (20:04)
[2017-01-29] VITALS: BP 126/75
[2017-01-29] MEDS: DIAZEPAM INJ 10 MG/2 ML (VALIUM) SYR IV PRN ×2 (02:19→12:34)
[2017-01-29] MEDS: NS IV 1000 ML 1,000 ML IV SCH (03:53)
[2017-01-29 03:55] VITALS: BP 148/89
[2017-01-29] MEDS: oxyCODONE/APAP 10/325MG (PERCOCET 10) TABLET PO PRN ×3 (04:49→20:41)
[2017-01-29] MEDS: MULTIVIT W/MINERALS TAB (THERAGRAN M) PO SCH (05:40)
[2017-01-29] MEDS: fentaNYL PATCH 25 MCG (DURAGESIC) TD SCH (05:41)
[2017-01-29] MEDS: FENTANYL PATCH REMOVAL TP SCH (05:41)
[2017-01-29] MEDS ORDERED: FENTANYL PATCH REMOVAL TP SCH (06:15)
[2017-01-29] MEDS ORDERED: fentaNYL PATCH 75 MCG (DURAGESIC) TD SCH (06:15)
[2017-01-29] MEDS: RT-ALBUTEROL/IPRATROPIUM 3 ML (DUONEB) VIAL INH SCH ×3 (06:49→18:55)
--- NOTE | 2017-01-29 07:23 | Pulmonary Progress Note ---
Subjective Subjective/Events-last exam Pt sitting up in chair. Aid at bedside. She appears sedated but will wake up. Exam Exam Vital Signs Date Time Temp Pulse Resp B/P (MAP) Pulse Ox O2 Delivery O2 Flow Rate FiO2 01/29/17 06:51 90 2.00 01/29/17 03:55 98.4 111 24 148/89 92 2.00 01/29/17 00:00 98.0 110 24 126/75 92 2.00 01/28/17 21:00 2.00 01/28/17 20:00 97.5 107 18 167/88 97 2.00 01/28/17 16:00 97.9 12 16 163/77 99 2.00 01/28/17 15:37 92 2.00 01/28/17 12:00 97.0 108 20 155/79 93 2.00 01/28/17 10:59 3.00 01/28/17 07:28 96.9 109 22 132/73 93 2.00 I & O 01/29/17 07:00 Intake Total 2460 ml Output Total 2950 ml Balance -490 ml General Appearance: Other (sedate, follows commands, no complaints) HEENT: PERRL/EOMI, Normal ENT Inspection, Pharynx Normal Neck: Full Range of Motion Respiratory: Lungs Clear, No Accessory Muscle Use, No Respiratory Distress Cardiovascular: Normal Peripheral Pulses Gastrointestinal: normal bowel sounds, non tender, soft Extremity: Non Tender, No Calf Tenderness Neurologic/Psychiatric: Alert, Oriented x3, No Motor/Sensory Deficits Skin: Warm/Dry, Other (dressing clean/dry/intact) Lymphatic: No Adenopathy Results Lab Laboratory Tests 01/28/17 05:45 Assessment/Plan Assessment/Plan Lumbar Stenosis with Radiculopathy and Lumbar Kyphosis s/p surgery Hypotension -- resolved - KVO Hyponatremia - chronic-- secondary to Antidepressants - improving -Monitor Post surgical anemia - monitor Atelectasis with hypoxia -easy pap breathing txs -IS -increase activity as tolerated -titrate oxygen as tolerated 232 Clinical Quality Measures DVT/VTE Risk/Contraindication: Risk Factor Score Per Nursin RFS Level Per Nursing on Admit: 4+=Very High JENNIFER BULLARD DO January 29, 2017 07:23
[2017-01-29 07:45] VITALS: BP 147/79
[2017-01-29 07:58] LABS: BASOPHILS % (AUTO) 0 % (0-10); EOSINOPHILS # (AUTO) 0.1 10^3/uL (0.0-0.3); EOSINOPHILS % (AUTO) 1 % (0-10); LYMPHOCYTES # (AUTO) 0.6 X 10^3 (1.0-4.0); LYMPHOCYTES % (AUTO) 6 % (12-44); MEAN CORPUSCULAR HEMOGLOBIN 30 PG (25-34); MEAN CORPUSCULAR HGB CONC 34 G/DL (32-36); MEAN CORPUSCULAR VOLUME 86 FL (80-99); MONOCYTES # (AUTO) 1.2 X 10^3 (0.0-1.0); MONOCYTES % (AUTO) 12 % (0-12); NEUTROPHILS # (AUTO) 8.5 X 10^3 (1.8-7.8); NEUTROPHILS % (AUTO) 82 % (42-75); PLATELET COUNT 168 10^3/uL (130-400); RED BLOOD COUNT 2.86 10^6/uL (4.35-5.85); RED CELL DISTRIBUTION WIDTH 14.4 % (10.0-14.5); WHITE BLOOD COUNT 10.3 10^3/uL (4.3-11.0)
[2017-01-29 08:21] LABS: ANION GAP 8 MMOL/L (5-14); BLOOD UREA NITROGEN 3 MG/DL (7-18); BUN/CREATININE RATIO 6; CALCIUM 7.6 MG/DL (8.5-10.1); CARBON DIOXIDE 22 MMOL/L (21-32); CHLORIDE 97 MMOL/L (98-107); CREATININE SERUM 0.54 MG/DL (0.60-1.30); GFR ESTIMATED > 60; GLUCOSE 110 MG/DL (70-105); MAGNESIUM 1.6 MG/DL (1.8-2.4); PHOSPHORUS 1.4 MG/DL (2.3-4.7); POTASSIUM 2.9 MMOL/L (3.6-5.0); SODIUM 127 MMOL/L (135-145)
[2017-01-29] MEDS: DOCUSATE SODIUM 100 MG (COLACE) CAP PO SCH ×2 (08:39→20:40)
[2017-01-29] MEDS: SENNOSIDES 8.6 MG (SENOKOT) TAB PO SCH ×2 (08:39→20:40)
[2017-01-29] MEDS: FAMOTIDINE 20 MG (PEPCID) TABLET PO SCH ×2 (10:06→20:41)
[2017-01-29 11:50] VITALS: BP 162/68
[2017-01-29] MEDS: fentaNYL INJECTION 100 MCG/2 ML AMP IVP PRN (12:34)
--- NOTE | 2017-01-29 12:42 | Progress Note-Hospitalist ---
Progress Note HPI/CC on Admission CC: Medical management of hypotension w/N/V following complex spine surgery HPI: This is a 61yoWF patient of Dr Lee's w/h/o RA on biological immunosuppressives, migraines, HTN and HLP with hypothyroidism that presents to the ICU after an uncomplicated but very complex spinal surgery that resulted in 2000 EBL which necessitated 2 units of blood and 3300cc of IVF while in surgery. She is still requiring pressor therapy along with aggressive IVF for hypotension and currently having more N/V so I ordered a Scopolamine patch to help with that issue. She minimally converses due to N/V. She reports the pain is about the same and PT was unable to initiate therapy due to hypotension of 68 /38 when she was upright on the bed. I reviewed her home meds and H&P. Progress Notes/Assess & Plan Date Seen 01/29/17 Admission Dx/Process Assessment: Hypotension following extensive spine surgery with EBL 2000cc s/p 2 units of blood and 3300cc IVF while in OR now requiring pressor therapy and IVF Severe and recurrent nausea and vomiting requiring Scopolamine patch and Zofran RA on biological immunosuppressives Hypothyroidism HTN as out pt HLP Migraines post op anemia due to blood loss Diagonsis/Assessment & Plan Patient mad at everyone today and calling nurses names and threatening to fall on floor to break her hip Back brace is very cumbersome she states No BM yet and tells me to quit asking. Very difficult situation and personality No fever, vital signs stable, angry, up in chair, oriented 3 Regular rate and rhythm, clear to auscultation bilaterally No edema and normal range of motion and no loss of sensation in lower extremities Laboratory Tests 01/29/17 07:51 Assessment: Hypotension following extensive spine surgery POD # 3 with EBL 2000cc s/p 2 units of blood and 3300cc IVF while in OR s/p required pressor therapy and IVF now doing much better Severe and recurrent nausea and vomiting requiring Scopolamine patch and Zofran now resolved RA on biological immunosuppressives sees female Rheumatology that she can't remember name of Hypothyroidism HTN as out pt HLP Migraines Post op anemia due to blood loss s/p 4 units of blood now 8.5 Self-medicating out of purse with Percocet per daughter but c/w issues she had yesterday now purse is in locked up truck of daughter's Hyponatremia on fluid restriction Hypokalemia Post op constipation refuses any intervention Plan: Pain control IVF Hold immunosuppressives Home meds when able Scopolamine patch and Zofran to be maintained Start PT/OT Fluid restriction Very difficult situation HAN LOPEZ DO January 29, 2017 12:42
--- NOTE | 2017-01-29 13:01 | Physical Therapy Progress Note ---
Therapy Progress Note Treatment attempted this morning but patient refused. She states she has very bad pain and has both arms on bedrails with elbows forcefully extended trying to relieve pressure on her back. She is very anxious and distressed and confused. Patient adamantly refuses to get out of bed. Will try back this afternoon. ELIF LOPEZ PT January 29, 2017 13:01
--- NOTE | 2017-01-29 13:56 | Occupational Ther Daily Note ---
OT Current Status-Daily Note Subjective Pt in bed, reports pain, but does not rate. Pt agrees to treatment, states she wants to get stronger so she can go home. Mental Status/Objective Functional [place] Measure 0=Not Assessed/NA 4=Minimal Assistance 1=Total Assistance 5=Supervision or Setup 2=Maximal Assistance 6=Modified [place] 3=Moderate Assistance 7=Complete [place] Attachments: Bell Catheter, IV, Oxygen ADL-Treatment Pt supine to sit with minimal assistance, skilled cues for technique. Pt is impulsive and requires assist to manage multiple lines. Pt required total assist to don brace at EOB. Pt completed grooming tasks at EOB. Pt brushed hair and washed face with set up. Pt sit to stand with CGA, requires cues for safety during transitional movements. Care transferred to PT. Pt sitting EOB with PT present for treatment after session. Grooming (FIM): 5 OT Short Term Goals Short Term Goals Time Frame: February 03, 2017 Eating(FIM): 5 Grooming(FIM): 5 Bathing(FIM): 4 Upper Body Dressing(FIM): 4 Lower Body Dressing(FIM): 4 Toileting(FIM): 5 Transfers (B,C,W/C) (FIM): 5 Toilet/Commode Transfer(FIM): 5 Shower Transfer(FIM): 4 Additional Short Term Goals: 1-Demonstrate ADL Tasks, 2-Verbalize Understanding , 3-ImproveStrength/Cassius 1=Demonstrate adherence to instructed precautions during ADL tasks. 2=Patient will verbalize/demonstrate understanding of assistive devices/ modifications for ADL. 3=Patient will improve strength/tolerance for activity to enable patient to perform ADL's. OT Senior Living Goals Senior Living Goals Time Frame: Feb 10, 2017 Eating (FIM): 6 Grooming(FIM): 6 Bathing(FIM): 5 Upper Body Dressing(FIM): 6 Lower Body Dressing(FIM): 6 Toileting(FIM): 6 Transfers (B,C,W/C) (FIM): 6 Toilet/Commode Transfer(FIM): 6 Shower Transfer(FIM): 5 Additional Goals: 1-Demonstrate ADL Tasks, 2-Verbalize Understanding, 3- ImproveStrength/Cassius 1=Demonstrate adherence to instructed precautions during ADL tasks. 2=Patient will verbalize/demonstrate understanding of assistive devices/ modifications for ADL. 3=Patient will improve strength/tolerance for activity to enable patient to perform ADL's. OT Education/Plan Discharge Recommendations Plan/Recommendations: Continue POC Treatment Plan/Plan of Care Patient would benefit from OT for education, treatment and training to promote independence in ADL's, mobility, safety and/or upper extremity function for ADL' s. Plan of Care: ADL Retraining, Functional Mobility, UE Funct Exercise/Act Treatment Duration: Feb 10, 2017 Visits Per Week: 5-6 Agreement: Yes Rehab Potential: Good Time/GCodes Start Time: 13:25 Stop Time: 13:40 Total Time Billed (hr/min): 15 Billed Treatment Time 1 visit, ADL(15minutes) TAWANA HERNANDEZ OT January 29, 2017 13:56
--- NOTE | 2017-01-29 14:07 | Physical Therapy Daily Note ---
PT Daily Note-Current Subjective Patient sitting EOB pre tx, just got through with OT who is still in the room when PT starts. Patient states she has 9/10 pain but is willing to ambulate. Appearance Patient in bed post tx with nurse call, phone, tray, bed alarm on, all needs met. Mental Status Patient Orientation: Person, Place Attachments: Oxygen, Bell Catheter, IV TLSO Transfers Functional [place] Measure 0=Not Assessed/NA 4=Minimal Assistance 1=Total Assistance 5=Supervision or Setup 2=Maximal Assistance 6=Modified [place] 3=Moderate Assistance 7=Complete IndependenceIRFPAI Quality Coding Scale 6 Independent with activity with or without an assistive device 5 Patient requires set up or clean up by helper. Patient completes activity by themselves 4 Supervision or touching assist (CGA). [place] provide cues , steadying assist 3 The helper provides less than half the effort to complete the activity 2 The helper provides more than half the effort to complete the activity 1 Dependent. The helper does all the effort to complete an activity 7 Patient refused to complete or attempt activity 9 The patient did not perform the activity before the current illness or injury 88 Not attempted due to Medical conditions or safety concerns Transfers (B, C, W/C) (FIM): 2 Scootin Rollin Supine to/from Sit: 2 Sit to/from Stand: 4 cues for safety and hand placement Gait Training Gait (FIM): 4 Distance: 200' Gait Level of Assist: 4 Gait Persons Needed: 1 Gait Assistive Device: FWW Another person needed just to keep track of attachments. Patient needs CGA and cues for direction. Slow, antalgic ambulation. Treatments bed mobility and transfers, ambulation Assessment Current Status: Fair Progress improving ambulation but patient continues to be very confused, talking about finding the mice PT Short Term Goals Short Term Goals Time Frame: Feb 05, 2017 Transfers (B,C,W/C) (FIM): 5 Gait (FIM): 2 Distance (FIM): 7=988-01 ft Gait Distance Comment: 125' Gait Level of Assist: 4 Gait Assistive Device: FWW PT Retirement Goals Retirement Goals PT Manager Residential Goals Time Frame: Feb 16, 2017 Transfers (B,C,W/C) (FIM): 6 Gait (FIM): 6 Gait distance (FIM): 3=150 ft Distance: 300' Gait Level of Assist: 6 Gait Assistive Device: FWW PT Plan Problem List Problem List: Activity Tolerance, Functional Strength, Safety, Balance, Gait, Transfer, Bed Mobility, ROM Treatment/Plan Treatment Plan: Continue Plan of Care Treatment Plan: Bed Mobility, Education, Functional Activity Cassius, Functional Strength, Gait, Safety, Therapeutic Exercise, Transfers Treatment Duration: Feb 16, 2017 Visits Per Week: 11 Safety Risks/Education Patient Education: Gait Training, Transfer Techniques, Safety Issues Teaching Recipient: Patient Teaching Methods: Demonstration, Discussion Response to Teaching: Reinforcement Needed Time/GCodes Time In: 1340 Time Out: 1355 Total Billed Treatment Time: 15 Total Billed Treatment 1 visit GT 15' ELIF LOPEZ PT January 29, 2017 14:07
[2017-01-29] MEDS: KCL 10 MEQ TAB (MICRO K) PO SCH ×2 (14:32→17:56)
[2017-01-29 16:00] VITALS: BP 161/80
[2017-01-29] MEDS: AMITRIPTYLINE 25 MG (ELAVIL) TAB PO SCH (20:40)
[2017-01-29] MEDS: clonazePAM 1 MG (KlonoPIN) TAB PO SCH (20:41)
[2017-01-29] MEDS: buPROPion SR 150 MG (WELLBUTRIN SR) TAB PO SCH (20:41)
[2017-01-29] MEDS: POLYETHYLENE GLYCOL 17 GM (MIRALAX) PACK PO SCH (20:41)
[2017-01-30 00:30] VITALS: BP 153/93
[2017-01-30] MEDS: oxyCODONE/APAP 10/325MG (PERCOCET 10) TABLET PO PRN ×2 (01:23→06:06)
[2017-01-30] MEDS: NS IV 1000 ML 1,000 ML IV SCH (03:40)
[2017-01-30] MEDS: MULTIVIT W/MINERALS TAB (THERAGRAN M) PO SCH ×2 (06:05→13:19)
[2017-01-30] MEDS: KCL 10 MEQ TAB (MICRO K) PO SCH ×3 (06:05→17:57)
[2017-01-30 06:21] LABS: BASOPHILS % (AUTO) 0 % (0-10); EOSINOPHILS # (AUTO) 0.1 10^3/uL (0.0-0.3); EOSINOPHILS % (AUTO) 2 % (0-10); LYMPHOCYTES # (AUTO) 0.9 X 10^3 (1.0-4.0); LYMPHOCYTES % (AUTO) 11 % (12-44); MEAN CORPUSCULAR HEMOGLOBIN 30 PG (25-34); MEAN CORPUSCULAR HGB CONC 34 G/DL (32-36); MEAN CORPUSCULAR VOLUME 88 FL (80-99); MEAN PLATELET VOLUME 8.3 FL (7.4-10.4); MONOCYTES # (AUTO) 1.1 X 10^3 (0.0-1.0); MONOCYTES % (AUTO) 15 % (0-12); NEUTROPHILS # (AUTO) 5.6 X 10^3 (1.8-7.8); NEUTROPHILS % (AUTO) 72 % (42-75); PLATELET COUNT 181 10^3/uL (130-400); RED BLOOD COUNT 2.91 10^6/uL (4.35-5.85); RED CELL DISTRIBUTION WIDTH 14.2 % (10.0-14.5); WHITE BLOOD COUNT 7.7 10^3/uL (4.3-11.0)
[2017-01-30 06:43] LABS: ANION GAP 10 MMOL/L (5-14); BLOOD UREA NITROGEN 3 MG/DL (7-18); BUN/CREATININE RATIO 5; CALCIUM 8.1 MG/DL (8.5-10.1); CARBON DIOXIDE 26 MMOL/L (21-32); CHLORIDE 95 MMOL/L (98-107); CREATININE SERUM 0.55 MG/DL (0.60-1.30); GFR ESTIMATED > 60; GLUCOSE 80 MG/DL (70-105); MAGNESIUM 1.6 MG/DL (1.8-2.4); PHOSPHORUS 2.2 MG/DL (2.3-4.7); POTASSIUM 3.1 MMOL/L (3.6-5.0); SODIUM 131 MMOL/L (135-145)
[2017-01-30] MEDS: RT-ALBUTEROL/IPRATROPIUM 3 ML (DUONEB) VIAL INH SCH ×4 (07:06→18:41)
[2017-01-30 08:00] VITALS: BP 137/98
[2017-01-30] MEDS: DOCUSATE SODIUM 100 MG (COLACE) CAP PO SCH (09:18)
[2017-01-30] MEDS: FAMOTIDINE 20 MG (PEPCID) TABLET PO SCH ×2 (09:18→20:41)
[2017-01-30] MEDS: SENNOSIDES 8.6 MG (SENOKOT) TAB PO SCH ×2 (09:18→20:41)
[2017-01-30] MEDS ORDERED: SUMAtriptan 50 MG (IMITREX) TAB PO PRN (09:30)
[2017-01-30] MEDS: CARISOPRODOL 350 MG (SOMA) TAB PO SCH ×2 (10:00→20:41)
--- NOTE | 2017-01-30 10:17 | Progress Note-Hospitalist ---
Progress Note HPI/CC on Admission CC: Medical management of hypotension w/N/V following complex spine surgery HPI: This is a 61yoWF patient of Dr Lee's w/h/o RA on biological immunosuppressives, migraines, HTN and HLP with hypothyroidism that presents to the ICU after an uncomplicated but very complex spinal surgery that resulted in 2000 EBL which necessitated 2 units of blood and 3300cc of IVF while in surgery. She is still requiring pressor therapy along with aggressive IVF for hypotension and currently having more N/V so I ordered a Scopolamine patch to help with that issue. She minimally converses due to N/V. She reports the pain is about the same and PT was unable to initiate therapy due to hypotension of 68 /38 when she was upright on the bed. I reviewed her home meds and H&P. Progress Notes/Assess & Plan Date Seen 01/30/17 Admission Dx/Process Assessment: Hypotension following extensive spine surgery with EBL 2000cc s/p 2 units of blood and 3300cc IVF while in OR now requiring pressor therapy and IVF Severe and recurrent nausea and vomiting requiring Scopolamine patch and Zofran RA on biological immunosuppressives Hypothyroidism HTN as out pt HLP Migraines post op anemia due to blood loss Diagonsis/Assessment & Plan Patient will be restarted and all of her psychiatric medication will likely help disposition Has not threatened to throw anything at the nurses today or calling the nurses name so that is an improvement from yesterday Sodium level up to 131 so will increase fluid restriction to 2000 mL a day which pleases her No BM yet and she insists that she will take care of that herself Using incentive spirometer a little more today Back pain is much improved No fever, vital signs stable, pleasant, improved Regular rate and rhythm, clear to auscultation bilaterally No edema Laboratory Tests 01/30/17 06:10 No fever, vital signs stable, much improved, oriented 3 Regular rate and rhythm, clear to auscultation bilaterally No edema and normal range of motion and no loss of sensation in lower extremities Laboratory Tests 01/30/17 06:10 Assessment: Hypotension following extensive spine surgery POD # 4 with EBL 2000cc s/p 4 units of blood total and 3300cc IVF while in OR s/p required pressor therapy and IVF now resolved Severe and recurrent nausea and vomiting requiring Scopolamine patch and Zofran now resolved RA on biological immunosuppressives sees female Rheumatology that she can't remember name of Hypothyroidism HTN as out pt HLP Migraines Post op anemia due to blood loss s/p 4 units of blood now 8.5 Self-medicating out of purse with Percocet per daughter but c/w issues she had yesterday now purse is in locked up truck of daughter's Hyponatremia on fluid restriction much improved at 131 today so increasing fluid on restriction to 2000cc/day Hypokalemia replacing PO Post op constipation refuses any intervention Mental illness restarting all meds today Plan: Pain control HLIVF Hold immunosuppressives Home meds today including psych meds Scopolamine patch and Zofran to be maintained prn Maintain PT/OT Fluid restriction increased amount to 2000 today Improved situation HAN LOPEZ DO January 30, 2017 10:17
[2017-01-30] MEDS: MONTELUKAST 10 MG (SINGULAIR) TAB PO SCH (10:29)
[2017-01-30] MEDS: FOLIC ACID 1 MG TAB PO SCH (10:29)
[2017-01-30] MEDS: RAMIPRIL 5 MG (ALTACE) CAP PO SCH (10:29)
[2017-01-30] MEDS: DILTIAZEM 180 MG (CARDIZEM CD) CAP PO SCH (10:29)
[2017-01-30] MEDS: LEVOTHYROXINE 125 MCG (LEVOTHROID) TABLET PO SCH (10:29)
[2017-01-30] MEDS: SODIUM CHLORIDE 1 GM TAB (NON-FORMULARY) PO SCH ×2 (10:29→20:40)
[2017-01-30] MEDS: buPROPion SR 150 MG (WELLBUTRIN SR) TAB PO SCH ×2 (10:29→20:40)
[2017-01-30] MEDS: oxyCODONE/APAP 5/325MG (PERCOCET 5) TABLET PO PRN ×3 (10:30→19:58)
[2017-01-30] MEDS: FLUTICASONE NASAL SPRAY (FLONASE) 16 GM BTL NS SCH ×2 (11:46→20:42)
[2017-01-30] MEDS: LUBIPROSTONE 24 MCG CAP (AMITIZA) NON-FORMULARY PO SCH ×2 (11:46→20:47)
[2017-01-30] MEDS: PANTOPRAZOLE 40 MG (PROTONIX) TAB PO SCH (11:46)
[2017-01-30] MEDS: DOCUSATE CALCIUM 240 MG (SURFAK) CAP PO SCH ×2 (11:46→20:41)
--- NOTE | 2017-01-30 12:36 | Physical Therapy Daily Note ---
PT Daily Note-Current Subjective Pt. in bed, agrees to get up. no c/o pain States she has had back problems so long she knows log roll well Pain Numeric Pain Scale: 0-No Pain Mental Status Patient Orientation: Normal For Age Attachments: Other-See Comments (back brace, donned with mod assist) Transfers Functional [place] Measure 0=Not Assessed/NA 4=Minimal Assistance 1=Total Assistance 5=Supervision or Setup 2=Maximal Assistance 6=Modified [place] 3=Moderate Assistance 7=Complete IndependenceIRFPAI Quality Coding Scale 6 Independent with activity with or without an assistive device 5 Patient requires set up or clean up by helper. Patient completes activity by themselves 4 Supervision or touching assist (CGA). [place] provide cues , steadying assist 3 The helper provides less than half the effort to complete the activity 2 The helper provides more than half the effort to complete the activity 1 Dependent. The helper does all the effort to complete an activity 7 Patient refused to complete or attempt activity 9 The patient did not perform the activity before the current illness or injury 88 Not attempted due to Medical conditions or safety concerns Transfers (B, C, W/C) (FIM): 4 Scootin Rollin Supine to/from Sit: 5 Sit to/from Stand: 4 Bed to/from Chair: 4 Gait Training Gait (FIM): 4 Distance (FIM): 3=150 ft (250) Gait Level of Assist: 4 Gait Persons Needed: 1 Gait Assistive Device: FWW Exercises Supine Ex: Ankle pumps, Quad Set, Rolling, Heel Slides Supine Reps: 10 Assessment Current Status: Good Progress PT Short Term Goals Short Term Goals Time Frame: Feb 05, 2017 Transfers (B,C,W/C) (FIM): 5 Gait (FIM): 2 Distance (FIM): 9=035-58 ft Gait Distance Comment: 125' Gait Level of Assist: 4 Gait Assistive Device: FWW PT Senior Care Goals Rate And Cost Analyst Goals PT Senior Care Goals Time Frame: Feb 16, 2017 Transfers (B,C,W/C) (FIM): 6 Gait (FIM): 6 Gait distance (FIM): 3=150 ft Distance: 300' Gait Level of Assist: 6 Gait Assistive Device: FWW PT Plan Treatment/Plan Treatment Plan: Continue Plan of Care Treatment Plan: Bed Mobility, Education, Functional Activity Cassius, Functional Strength, Gait, Safety, Therapeutic Exercise, Transfers Treatment Duration: Feb 16, 2017 Visits Per Week: 11 Safety Risks/Education Patient Education: Gait Training, Transfer Techniques, Correct Positioning, Reviewed Don/Doff Brace, Safety Issues Teaching Recipient: Patient Teaching Methods: Demonstration, Discussion Response to Teaching: Verbalize Understanding, Return Demonstration, Reinforcement Needed Time/GCodes Time In: 1155 Time Out: 1210 Total Billed Treatment Time: 15 Total Billed Treatment 1,FA15m G Codes Necessary: EASTON Rodas RETARDER OPERATOR January 30, 2017 12:36
[2017-01-30] MEDS: DIAZEPAM 2 MG (VALIUM) TAB PO PRN (13:19)
[2017-01-30 15:52] VITALS: BP 146/78
[2017-01-30] MEDS: RT-ADVAIR HFA 115/21 MCG PER PUFF IH SCH (18:41)
[2017-01-30] MEDS: SIMvastatin 20 MG (ZOCOR) TAB PO SCH (20:40)
[2017-01-30] MEDS: clonazePAM 1 MG (KlonoPIN) TAB PO SCH (20:41)
[2017-01-30] MEDS: AMITRIPTYLINE 25 MG (ELAVIL) TAB PO SCH (20:41)
[2017-01-30] MEDS: QUEtiapine 25 MG (SEROquel) TAB IMMEDIATE RELEASE PO SCH (20:42)
[2017-01-30] MEDS: POLYETHYLENE GLYCOL 17 GM (MIRALAX) PACK PO SCH (20:42)
[2017-01-31] VITALS: BP 112/75
[2017-01-31] MEDS: oxyCODONE/APAP 5/325MG (PERCOCET 5) TABLET PO PRN ×4 (02:51→17:39)
[2017-01-31] MEDS: MULTIVIT W/MINERALS TAB (THERAGRAN M) PO SCH (06:07)
[2017-01-31] MEDS: LEVOTHYROXINE 125 MCG (LEVOTHROID) TABLET PO SCH (06:07)
[2017-01-31] MEDS: PANTOPRAZOLE 40 MG (PROTONIX) TAB PO SCH (06:07)
[2017-01-31] MEDS: KCL 10 MEQ TAB (MICRO K) PO SCH ×3 (06:07→17:39)
[2017-01-31 06:55] LABS: BASOPHILS % (AUTO) 0 % (0-10); EOSINOPHILS # (AUTO) 0.1 10^3/uL (0.0-0.3); EOSINOPHILS % (AUTO) 1 % (0-10); LYMPHOCYTES # (AUTO) 0.9 X 10^3 (1.0-4.0); LYMPHOCYTES % (AUTO) 11 % (12-44); MEAN CORPUSCULAR HEMOGLOBIN 32 PG (25-34); MEAN CORPUSCULAR HGB CONC 35 G/DL (32-36); MEAN CORPUSCULAR VOLUME 90 FL (80-99); MEAN PLATELET VOLUME 8.5 FL (7.4-10.4); MONOCYTES # (AUTO) 1.1 X 10^3 (0.0-1.0); MONOCYTES % (AUTO) 14 % (0-12); NEUTROPHILS # (AUTO) 6.1 X 10^3 (1.8-7.8); NEUTROPHILS % (AUTO) 75 % (42-75); PLATELET COUNT 240 10^3/uL (130-400); RED BLOOD COUNT 2.88 10^6/uL (4.35-5.85); RED CELL DISTRIBUTION WIDTH 14.4 % (10.0-14.5); WHITE BLOOD COUNT 8.2 10^3/uL (4.3-11.0)
[2017-01-31 07:08] LABS: ANION GAP 9 MMOL/L (5-14); BLOOD UREA NITROGEN 4 MG/DL (7-18); BUN/CREATININE RATIO 7; CALCIUM 8.4 MG/DL (8.5-10.1); CARBON DIOXIDE 27 MMOL/L (21-32); CHLORIDE 93 MMOL/L (98-107); CREATININE SERUM 0.59 MG/DL (0.60-1.30); GFR ESTIMATED > 60; GLUCOSE 98 MG/DL (70-105); MAGNESIUM 1.6 MG/DL (1.8-2.4); PHOSPHORUS 2.7 MG/DL (2.3-4.7); POTASSIUM 3.3 MMOL/L (3.6-5.0); SODIUM 129 MMOL/L (135-145)
[2017-01-31] MEDS: RT-ADVAIR HFA 115/21 MCG PER PUFF IH SCH ×2 (07:33→18:41)
[2017-01-31] MEDS: RT-ALBUTEROL/IPRATROPIUM 3 ML (DUONEB) VIAL INH SCH ×4 (07:33→18:43)
[2017-01-31 08:00] VITALS: BP 167/85
[2017-01-31] MEDS: CARISOPRODOL 350 MG (SOMA) TAB PO SCH ×2 (08:10→20:01)
[2017-01-31] MEDS: SODIUM CHLORIDE 1 GM TAB (NON-FORMULARY) PO SCH ×2 (08:10→20:02)
[2017-01-31] MEDS: MONTELUKAST 10 MG (SINGULAIR) TAB PO SCH (08:10)
[2017-01-31] MEDS: DIAZEPAM 2 MG (VALIUM) TAB PO PRN ×2 (08:10→20:02)
[2017-01-31] MEDS: FOLIC ACID 1 MG TAB PO SCH (08:10)
[2017-01-31] MEDS: buPROPion SR 150 MG (WELLBUTRIN SR) TAB PO SCH ×2 (08:10→20:01)
[2017-01-31] MEDS: RAMIPRIL 5 MG (ALTACE) CAP PO SCH (08:10)
[2017-01-31] MEDS: DOCUSATE CALCIUM 240 MG (SURFAK) CAP PO SCH ×2 (08:10→20:02)
[2017-01-31] MEDS: FAMOTIDINE 20 MG (PEPCID) TABLET PO SCH ×2 (08:10→20:02)
[2017-01-31] MEDS: SENNOSIDES 8.6 MG (SENOKOT) TAB PO SCH ×2 (08:11→20:02)
[2017-01-31] MEDS: FLUTICASONE NASAL SPRAY (FLONASE) 16 GM BTL NS SCH ×2 (08:11→20:03)
[2017-01-31] MEDS: DILTIAZEM 180 MG (CARDIZEM CD) CAP PO SCH (08:11)
[2017-01-31] MEDS: LUBIPROSTONE 24 MCG CAP (AMITIZA) NON-FORMULARY PO SCH ×2 (08:11→20:03)
--- NOTE | 2017-01-31 09:38 | Progress Note (SOAP) ---
Subjective Subjective/Events-last exam Feeling better, but still having pain, but more coherent. No other complaints other than pain. Legs feel better Objective Exam Vital Signs Date Time Temp Pulse Resp B/P (MAP) Pulse Ox O2 Delivery O2 Flow Rate FiO2 01/31/17 08:00 98.8 102 16 167/85 99 2.00 01/31/17 07:33 94 01/31/17 00:00 97.3 96 18 112/75 97 2.00 01/30/17 18:42 99 01/30/17 15:52 97.9 104 20 146/78 99 2.00 01/30/17 15:26 87 01/30/17 10:46 93 I & O 01/31/17 07:00 Intake Total 1820 ml Output Total 3230 ml Balance -1410 ml Capillary Refill : General Appearance: No Apparent Distress Respiratory: No Accessory Muscle Use, No Respiratory Distress Cardiovascular: Regular Rate, Rhythm, Normal Peripheral Pulses Gastrointestinal: non tender, soft Extremity: Normal Capillary Refill, No Calf Tenderness Neurologic/Psychiatric: Alert, Oriented x3, No Motor/Sensory Deficits Results Lab Laboratory Tests 01/31/17 06:10: White Blood Count 8.2, Red Blood Count 2.88L, Hemoglobin 9.1L, Hematocrit 26L, Mean Corpuscular Volume 90, Mean Corpuscular Hemoglobin 32, Mean Corpuscular Hemoglobin Concent 35, Red Cell Distribution Width 14.4, Platelet Count 240, Mean Platelet Volume 8.5, Neutrophils (%) (Auto) 75, Lymphocytes (%) (Auto) 11L , Monocytes (%) (Auto) 14H, Eosinophils (%) (Auto) 1, Basophils (%) (Auto) 0, Neutrophils # (Auto) 6.1, Lymphocytes # (Auto) 0.9L, Monocytes # (Auto) 1.1H, Eosinophils # (Auto) 0.1, Basophils # (Auto) 0.0, Sodium Level 129L, Potassium Level 3.3L, Chloride Level 93L, Carbon Dioxide Level 27, Anion Gap 9, Blood Urea Nitrogen 4L, Creatinine 0.59L, Estimat Glomerular Filtration Rate > 60, BUN /Creatinine Ratio 7, Glucose Level 98, Calcium Level 8.4L, Phosphorus Level 2.7 , Magnesium Level 1.6L Assessment/Plan Assessment/Plan Assess & Plan/Chief Complaint Post-Laminectomy Kyphosis Lumbar Stenosis, Neural Canal disk/osseous structures Lumbar Radiculopathy Lumbar Non-union Mechanical Complication of Hardware Acute Blood Loss Anemia Hyponatremia Plan:Continue pain control Mobilize with PT Start arranging D/C plans for possible tmrw if pain better controlled and still coherent Clinical Quality Measures DVT/VTE Risk/Contraindication: Risk Factor Score Per Nursin RFS Level Per Nursing on Admit: 4+=Very High ANAHI POLANCO MD January 31, 2017 9:38 am
--- NOTE | 2017-01-31 11:15 | Progress Note-Hospitalist ---
Progress Note HPI/CC on Admission CC: Medical management of hypotension w/N/V following complex spine surgery HPI: This is a 61yoWF patient of Dr Lee's w/h/o RA on biological immunosuppressives, migraines, HTN and HLP with hypothyroidism that presents to the ICU after an uncomplicated but very complex spinal surgery that resulted in 2000 EBL which necessitated 2 units of blood and 3300cc of IVF while in surgery. She is still requiring pressor therapy along with aggressive IVF for hypotension and currently having more N/V so I ordered a Scopolamine patch to help with that issue. She minimally converses due to N/V. She reports the pain is about the same and PT was unable to initiate therapy due to hypotension of 68 /38 when she was upright on the bed. I reviewed her home meds and H&P. Progress Notes/Assess & Plan Date Seen 01/31/17 Admission Dx/Process Assessment: Hypotension following extensive spine surgery with EBL 2000cc s/p 2 units of blood and 3300cc IVF while in OR now requiring pressor therapy and IVF Severe and recurrent nausea and vomiting requiring Scopolamine patch and Zofran RA on biological immunosuppressives Hypothyroidism HTN as out pt HLP Migraines post op anemia due to blood loss Diagonsis/Assessment & Plan Patient doing much better since restarted all of her psych meds No BM yet and wants to wait until she gets home Conferred with Dr Lee and she has help at home so may be able to DC tomorrow Pain is controlled Sodium level is a little lower today since I increased the fluid she can drink so likely has SIADH No fever, vital signs stable, much more pleasant, improved, chronically ill and pale Regular rate and rhythm, clear to auscultation bilaterally No edema Laboratory Tests 01/31/17 06:10 Assessment: Hypotension following extensive spine surgery POD # 5 with EBL 2000cc s/p 4 units of blood total and 3300cc IVF while in OR s/p required pressor therapy and IVF now resolved Severe and recurrent nausea and vomiting requiring Scopolamine patch and Zofran now resolved RA on biological immunosuppressives sees female Rheumatology that she can't remember name Hypothyroidism HTN as out pt HLP Migraines Post op anemia due to blood loss s/p 4 units of blood now 9.1 Self-medicating out of purse with Percocet per daughter but c/w issues she had in ICU with hypotension now jania is in locked up truck of daughter's Hyponatremia on fluid restriction much improved at 131 yeseterday so increased fluid on restriction to 2000cc/day now 129 but will maintain the current amount Hypokalemia replacing PO Post op constipation refuses any intervention Mental illness restarted all meds yesterday Plan: Pain control HLIVF Hold immunosuppressives Continue home meds Scopolamine patch and Zofran to be maintained prn Maintain PT/OT Fluid restriction increased amount to 2000 yesterday Improved situation overall DC tomorrow HAN LOPEZ DO January 31, 2017 11:14
[2017-01-31 16:02] VITALS: BP 106/70
[2017-01-31] MEDS: AMITRIPTYLINE 25 MG (ELAVIL) TAB PO SCH (20:01)
[2017-01-31] MEDS: SIMvastatin 20 MG (ZOCOR) TAB PO SCH (20:01)
[2017-01-31] MEDS: POLYETHYLENE GLYCOL 17 GM (MIRALAX) PACK PO SCH (20:02)
[2017-01-31] MEDS: clonazePAM 1 MG (KlonoPIN) TAB PO SCH (20:02)
[2017-01-31] MEDS: QUEtiapine 25 MG (SEROquel) TAB IMMEDIATE RELEASE PO SCH (20:09)
[2017-02-01 00:18] VITALS: BP 127/77
[2017-02-01] MEDS: oxyCODONE/APAP 5/325MG (PERCOCET 5) TABLET PO PRN ×3 (00:56→06:38)
[2017-02-01 04:56] LABS: BASOPHILS % (AUTO) 0 % (0-10); EOSINOPHILS # (AUTO) 0.1 10^3/uL (0.0-0.3); EOSINOPHILS % (AUTO) 1 % (0-10); LYMPHOCYTES # (AUTO) 0.9 X 10^3 (1.0-4.0); LYMPHOCYTES % (AUTO) 11 % (12-44); MEAN CORPUSCULAR HEMOGLOBIN 30 PG (25-34); MEAN CORPUSCULAR HGB CONC 34 G/DL (32-36); MEAN CORPUSCULAR VOLUME 90 FL (80-99); MEAN PLATELET VOLUME 8.4 FL (7.4-10.4); MONOCYTES # (AUTO) 1.3 X 10^3 (0.0-1.0); MONOCYTES % (AUTO) 15 % (0-12); NEUTROPHILS % (AUTO) 73 % (42-75); PLATELET COUNT 274 10^3/uL (130-400); RED BLOOD COUNT 2.98 10^6/uL (4.35-5.85); RED CELL DISTRIBUTION WIDTH 14.2 % (10.0-14.5); WHITE BLOOD COUNT 8.2 10^3/uL (4.3-11.0)
[2017-02-01] MEDS: fentaNYL PATCH 25 MCG (DURAGESIC) TD SCH (05:21)
[2017-02-01] MEDS: FENTANYL PATCH REMOVAL TP SCH (05:21)
[2017-02-01 05:52] LABS: ANION GAP 8 MMOL/L (5-14); BLOOD UREA NITROGEN 3 MG/DL (7-18); BUN/CREATININE RATIO 5; CALCIUM 8.3 MG/DL (8.5-10.1); CARBON DIOXIDE 28 MMOL/L (21-32); CHLORIDE 97 MMOL/L (98-107); CREATININE SERUM 0.61 MG/DL (0.60-1.30); GFR ESTIMATED > 60; GLUCOSE 108 MG/DL (70-105); MAGNESIUM 1.6 MG/DL (1.8-2.4); PHOSPHORUS 2.5 MG/DL (2.3-4.7); POTASSIUM 3.6 MMOL/L (3.6-5.0); SODIUM 133 MMOL/L (135-145)
[2017-02-01] MEDS: KCL 10 MEQ TAB (MICRO K) PO SCH ×2 (06:37→11:55)
[2017-02-01] MEDS: DIAZEPAM 2 MG (VALIUM) TAB PO PRN (06:37)
[2017-02-01] MEDS: PANTOPRAZOLE 40 MG (PROTONIX) TAB PO SCH (06:38)
[2017-02-01] MEDS: LEVOTHYROXINE 125 MCG (LEVOTHROID) TABLET PO SCH (06:38)
[2017-02-01] MEDS: MULTIVIT W/MINERALS TAB (THERAGRAN M) PO SCH (06:38)
[2017-02-01] MEDS: RT-ALBUTEROL/IPRATROPIUM 3 ML (DUONEB) VIAL INH SCH ×2 (07:00→10:40)
[2017-02-01] MEDS: RT-ADVAIR HFA 115/21 MCG PER PUFF IH SCH (07:13)
[2017-02-01 08:00] VITALS: BP 161/90
[2017-02-01] MEDS: LUBIPROSTONE 24 MCG CAP (AMITIZA) NON-FORMULARY PO SCH (08:19)
[2017-02-01] MEDS: buPROPion SR 150 MG (WELLBUTRIN SR) TAB PO SCH (09:11)
[2017-02-01] MEDS: SENNOSIDES 8.6 MG (SENOKOT) TAB PO SCH (09:11)
[2017-02-01] MEDS: CARISOPRODOL 350 MG (SOMA) TAB PO SCH (09:11)
[2017-02-01] MEDS: FOLIC ACID 1 MG TAB PO SCH (09:11)
[2017-02-01] MEDS: DOCUSATE CALCIUM 240 MG (SURFAK) CAP PO SCH (09:11)
[2017-02-01] MEDS: RAMIPRIL 5 MG (ALTACE) CAP PO SCH (09:11)
[2017-02-01] MEDS: SODIUM CHLORIDE 1 GM TAB (NON-FORMULARY) PO SCH (09:11)
[2017-02-01] MEDS: DILTIAZEM 180 MG (CARDIZEM CD) CAP PO SCH (09:12)
[2017-02-01] MEDS: FLUTICASONE NASAL SPRAY (FLONASE) 16 GM BTL NS SCH (09:12)
[2017-02-01] MEDS: FAMOTIDINE 20 MG (PEPCID) TABLET PO SCH (09:12)
[2017-02-01] MEDS: MONTELUKAST 10 MG (SINGULAIR) TAB PO SCH (09:12)
--- NOTE | 2017-02-01 09:19 | Physical Therapy Daily Note ---
PT Daily Note-Current Subjective Patient states, "I just want to go home. When I'm alone, I am an attention seeker." Pain Numeric Pain Scale: 5-Moderate Pain Location: Medial, Upper, Lower Location Body Site: Back Pain Description: Acute Mental Status Patient Orientation: Normal For Age Transfers Functional [place] Measure 0=Not Assessed/NA 4=Minimal Assistance 1=Total Assistance 5=Supervision or Setup 2=Maximal Assistance 6=Modified [place] 3=Moderate Assistance 7=Complete IndependenceIRFPAI Quality Coding Scale 6 Independent with activity with or without an assistive device 5 Patient requires set up or clean up by helper. Patient completes activity by themselves 4 Supervision or touching assist (CGA). [place] provide cues , steadying assist 3 The helper provides less than half the effort to complete the activity 2 The helper provides more than half the effort to complete the activity 1 Dependent. The helper does all the effort to complete an activity 7 Patient refused to complete or attempt activity 9 The patient did not perform the activity before the current illness or injury 88 Not attempted due to Medical conditions or safety concerns Transfers (B, C, W/C) (FIM): 6 Scootin Rollin Supine to/from Sit: 6 Sit to/from Stand: 6 Gait Training Gait (FIM): 6 Distance (FIM): 3=150 ft Distance: >600' Gait Level of Assist: 6 Gait Assistive Device: FWW steady, safe and functional Assessment Patient donned back brace with assistance. Patient reports she will not wear the back brace at home. Education with patient on importance of protecting the acute process of healing and wearing the brace to ensure safe outcomes. Patient states she has a "different" brace at home that she might wear. Patient is currently at a modified independent [facility] with gross motor skills. Plan dismissal on this date to home with family. PT Short Term Goals Short Term Goals Time Frame: Feb 05, 2017 Transfers (B,C,W/C) (FIM): 5 Gait (FIM): 2 Distance (FIM): 0=958-89 ft Gait Distance Comment: 125' Gait Level of Assist: 4 Gait Assistive Device: FWW PT Body Maker Goals Custodial Goals PT Body Maker Goals Time Frame: Feb 16, 2017 Transfers (B,C,W/C) (FIM): 6 Gait (FIM): 6 Gait distance (FIM): 3=150 ft Distance: 300' Gait Level of Assist: 6 Gait Assistive Device: FWW PT Plan Treatment/Plan Treatment Plan: Discontinue PT, goals met Treatment Plan: Bed Mobility, Education, Functional Activity Cassius, Functional Strength, Gait, Safety, Therapeutic Exercise, Transfers Treatment Duration: Feb 16, 2017 Visits Per Week: 11 Time/GCodes Time In: 815 Time Out: 838 Total Billed Treatment Time: 23 Total Billed Treatment 1 visit GT x 2 23 min LAUREANO KWON PT February 01, 2017 09:19
--- NOTE | 2017-02-01 11:22 | Discharge Summary-Hospitalist ---
Diagnosis/Chief Complaint Date of Admission January 25, 2017 at 05:47 Date of Discharge Admission Diagnosis Assessment: Hypotension following extensive spine surgery with EBL 2000cc s/p 2 units of blood and 3300cc IVF while in OR now requiring pressor therapy and IVF Severe and recurrent nausea and vomiting requiring Scopolamine patch and Zofran RA on biological immunosuppressives Hypothyroidism HTN as out pt HLP Migraines post op anemia due to blood loss Discharge Diagnosis Assessment: Hypotension following extensive spine surgery POD # 6 with EBL 2000cc s/p 4 units of blood total and 3300cc IVF while in OR s/p required pressor therapy and IVF now resolved Severe and recurrent nausea and vomiting requiring Scopolamine patch and Zofran now resolved RA on biological immunosuppressives sees female Rheumatology that she can't remember name Hypothyroidism HTN as out pt HLP Migraines Post op anemia due to acute blood loss s/p 4 units of blood now 9 stable Self-medicating out of purse with Percocet per daughter but c/w issues she had in ICU with hypotension now purse is in locked up truck of daughter's Hyponatremia on fluid restriction much improved at 133 Hypokalemia replacing PO Post op constipation refuses any intervention Mental illness restarted all meds 3 days ago with improved disposition Reason Hospital Visit/Course CC: Medical management of hypotension w/N/V following complex spine surgery HPI: This is a 61yoWF patient of Dr Lee's w/h/o RA on biological immunosuppressives, migraines, HTN and HLP with hypothyroidism that presents to the ICU after an uncomplicated but very complex spinal surgery that resulted in 2000 EBL which necessitated 2 units of blood and 3300cc of IVF while in surgery. She is still requiring pressor therapy along with aggressive IVF for hypotension and currently having more N/V so I ordered a Scopolamine patch to help with that issue. She minimally converses due to N/V. She reports the pain is about the same and PT was unable to initiate therapy due to hypotension of 68 /38 when she was upright on the bed. I reviewed her home meds and H&P. Note from 02/01/17: Patient doing much better and overall ready for discharge She has plenty help at home Her sodium levels 133 sublingual of fluid restriction No BM yet that she declines any intervention until she goes home No fever, vital signs stable, pleasant, improved, pale, chronically ill, frail Regular rate rhythm, clear to auscultation bilaterally no rales are noted No edema Hospital course: patient had a lengthy hospital course requiring ICU management for several days due to severe hypotension requiring blood transfusions and aggressive IV fluids along with pressor therapy following surgery. Aggressive management resolved her issues and patient was eventually able to be transferred down to the floor with close monitoring of hemoglobin which remained stable after the total of 4 units of packed red blood cell she received during ICU stay and operating room course. She overall was very stable throughout the hospital course although she declined any bowel regimen because she had medication and hold to help her with that issue and family was ready for supporting her at home she reports. I did speak with spine surgery who supported the discharge plan for Wednesday and will discharge on Percocet and close follow-up with Dr. Lee. Discharge Summary Discharge Physical Examination Allergies: Coded Allergies: adalimumab (Verified Allergy, Intermediate, HIVES, 01/18/17) morphine (Verified Allergy, Intermediate, N/V, 01/18/17) Vitals & I&Os Vital Signs Date Time Temp Pulse Resp B/P (MAP) Pulse Ox O2 Delivery O2 Flow Rate FiO2 02/01/17 08:00 97.9 98 20 161/90 97 02/01/17 00:18 2.00 Hospital Course Labs (last 24 hrs) Laboratory Tests 02/01/17 04:45: White Blood Count 8.2, Red Blood Count 2.98L, Hemoglobin 9.0L, Hematocrit 27L, Mean Corpuscular Volume 90, Mean Corpuscular Hemoglobin 30, Mean Corpuscular Hemoglobin Concent 34, Red Cell Distribution Width 14.2, Platelet Count 274, Mean Platelet Volume 8.4, Neutrophils (%) (Auto) 73, Lymphocytes (%) (Auto) 11L , Monocytes (%) (Auto) 15H, Eosinophils (%) (Auto) 1, Basophils (%) (Auto) 0, Neutrophils # (Auto) 6.0, Lymphocytes # (Auto) 0.9L, Monocytes # (Auto) 1.3H, Eosinophils # (Auto) 0.1, Basophils # (Auto) 0.0, Sodium Level 133L, Potassium Level 3.6, Chloride Level 97L, Carbon Dioxide Level 28, Anion Gap 8, Blood Urea Nitrogen 3L, Creatinine 0.61, Estimat Glomerular Filtration Rate > 60, BUN/ Creatinine Ratio 5, Glucose Level 108H, Calcium Level 8.3L, Phosphorus Level 2.5 , Magnesium Level 1.6L Pending Labs Laboratory Tests 02/01/17 04:45: White Blood Count 8.2, Red Blood Count 2.98, Hemoglobin 9.0, Hematocrit 27, Mean Corpuscular Volume 90, Mean Corpuscular Hemoglobin 30, Mean Corpuscular Hemoglobin Concent 34, Red Cell Distribution Width 14.2, Platelet Count 274, Mean Platelet Volume 8.4, Neutrophils (%) (Auto) 73, Lymphocytes (%) (Auto) 11, Monocytes (%) (Auto) 15, Eosinophils (%) (Auto) 1, Basophils (%) (Auto) 0, Neutrophils # (Auto) 6.0, Lymphocytes # (Auto) 0.9, Monocytes # (Auto) 1.3, Eosinophils # (Auto) 0.1, Basophils # (Auto) 0.0, Sodium Level 133, Potassium Level 3.6, Chloride Level 97, Carbon Dioxide Level 28, Anion Gap 8, Blood Urea Nitrogen 3, Creatinine 0.61, Estimat Glomerular Filtration Rate > 60, BUN/ Creatinine Ratio 5, Glucose Level 108, Calcium Level 8.3, Phosphorus Level 2.5, Magnesium Level 1.6 Discharge Home Medications: Active Scripts Active Reported Docusate Sodium 250 Mg Capsule 250 Mg PO BID Oxycodone-Acetaminophen 5-325 (Oxycodone HCl/Acetaminophen) 1 Each Tablet 1-2 Tab PO Q4H PRN Fluticasone Propionate 16 Gm Hoagland.susp 1 Hoagland NS BID Clonazepam 1 Mg Tablet 1 Mg PO HS Simvastatin 20 Mg Tablet 20 Mg PO HS Daily Multiple Vitamin (Multivitamin) 1 Each Tablet 1 Tab PO DAILY Folic Acid 1 Mg Tablet 1 Mg PO DAILY Sumatriptan Succinate 50 Mg Tablet 50 Mg PO UD PRN Amitiza (Lubiprostone) 24 Mcg Capsule 24 Mcg PO BID Pantoprazole Sodium 40 Mg Tablet.dr 40 Mg PO DAILY Quetiapine Fumarate 25 Mg Tablet 25 Mg PO HS Orencia 250 mg Vial (Abatacept/Maltose) 250 Mg Vial IV MONTHLY Singulair (Montelukast Sodium) 10 Mg Tablet 10 Mg PO DAILY Levothyroxine Sodium 125 Mcg Tablet 125 Mcg PO DAILY Carisoprodol 350 Mg Tablet 350 Mg PO BID Amitriptyline HCl 25 Mg Tablet 25 Mg PO HS Bupropion Xl (Bupropion HCl) 300 Mg Tab.er.24h 300 Mg PO DAILY Sodium Chloride 1,000 Mg Tablet.atul 1,000 Mg PO BID Diltiazem 24Hr ER (Diltiazem HCl) 180 Mg Cap.er.24h 180 Mg PO DAILY Ramipril 10 Mg Capsule 10 Mg PO DAILY Breo Ellipta 100-25 Mcg INH (Fluticasone/Vilanterol) 1 Each Blst.w.dev 1 Puff IH DAILY Instructions to patient/family Please see electonic discharge instructions given to patient. Clinical Quality Measures DVT/VTE Risk/Contraindication: Risk Factor Score Per Nursin RFS Level Per Nursing on Admit: 4+=Very High HAN LOPEZ DO February 01, 2017 11:22
[2017-02-01] MEDS ORDERED: FENT1PAT8 TD (11:24)
[2017-02-01] MEDS ORDERED: DIAZ2TAB2 PO (11:24)
[2017-02-01] MEDS ORDERED: OXYC-465 PO (11:24)
== END 2017-02-01 14:18 | disposition home or self-care (01) | DRG 454 ==
LOC: 4TH 05:47 → SURG 05:48 → EDSTATUS 09:00 → ICU 15:55 → 4TH 01-27 12:00
PROVIDERS: ADMIT Orthopaedic Surgery Orthopaedic Surgery of the Spine; ATTEND Orthopaedic Surgery Orthopaedic Surgery of the Spine
PROC: 0SG1071 Fusion of 2 or more Lumbar Vertebral Joints with Autologous Tissue Substitute, Posterior Approach, Posterior Column, Open Approach (ICD-10-PCS; 2017-01-25)
PROC: 0SG3071 Fusion of Lumbosacral Joint with Autologous Tissue Substitute, Posterior Approach, Posterior Column, Open Approach (ICD-10-PCS; 2017-01-25)
PROC: 0RG7071 Fusion of 2 to 7 Thoracic Vertebral Joints with Autologous Tissue Substitute, Posterior Approach, Posterior Column, Open Approach (ICD-10-PCS; 2017-01-25)
PROC: 0RGA071 Fusion of Thoracolumbar Vertebral Joint with Autologous Tissue Substitute, Posterior Approach, Posterior Column, Open Approach (ICD-10-PCS; 2017-01-25)
PROC: 0QS00ZZ Reposition Lumbar Vertebra, Open Approach (ICD-10-PCS; 2017-01-25)
PROC: 0RP604Z Removal of Internal Fixation Device from Thoracic Vertebral Joint, Open Approach (ICD-10-PCS; 2017-01-25)
PROC: 0RPA04Z Removal of Internal Fixation Device from Thoracolumbar Vertebral Joint, Open Approach (ICD-10-PCS; 2017-01-25)
PROC: 0SP004Z Removal of Internal Fixation Device from Lumbar Vertebral Joint, Open Approach (ICD-10-PCS; 2017-01-25)
PROC: 0SP304Z Removal of Internal Fixation Device from Lumbosacral Joint, Open Approach (ICD-10-PCS; 2017-01-25)
PROC: 0SG00A0 Fusion of Lumbar Vertebral Joint with Interbody Fusion Device, Anterior Approach, Anterior Column, Open Approach (ICD-10-PCS; principal; 2017-01-25 07:28)
DX: T84.216A Breakdown (mechanical) of internal fixation device of vertebrae, initial encounter (principal); M96.1 Postlaminectomy syndrome, not elsewhere classified; M96.0 Pseudarthrosis after fusion or arthrodesis; M48.06 Spinal stenosis, lumbar region; M96.3 Postlaminectomy kyphosis; D62 Acute posthemorrhagic anemia; E87.1 Hypo-osmolality and hyponatremia; J98.11 Atelectasis; I95.81 Postprocedural hypotension; R11.2 Nausea with vomiting, unspecified; K21.9 Gastro-esophageal reflux disease without esophagitis; E83.42 Hypomagnesemia; M06.9 Rheumatoid arthritis, unspecified; I10 Essential (primary) hypertension; E03.9 Hypothyroidism, unspecified; E78.5 Hyperlipidemia, unspecified; G43.909 Migraine, unspecified, not intractable, without status migrainosus; E83.39 Other disorders of phosphorus metabolism; K59.09 Other constipation; F99 Mental disorder, not otherwise specified
CPT/HCPCS: 36415; 36569; 71010; 72082; 76937; 80048; 80053; 83735; 84100; 85007; 85014; 85018; 85025; 85027; 86920; 94640; 94664; 94760

== ENCOUNTER 2018-09-19 12:16 | Outpatient (CLI) | payer OTHER ==
[~2018-09-19] VITALS: Ht 152.4 cm; Wt 51.3 kg
[~2018-09-19 12:16] MED LIST changes: +CLON1TAB13 PO; +DIAZ2TAB2 PO; +DOCU250C11 PO; +FENT1PAT8 TD; +FLUT16SP22 NS; +OXYC-465 PO; +OXYC-471 PO; +OXYC-529 PO; -OXYC5TAB71 PO; -RAMI10CA PO; +RAMI10CA69 PO; +SIMV20TA3 PO; +SODI100047 PO; -[UNRECOGNIZED DRUG - CODE] PO
[2018-09-19 12:29] VITALS: BP 97/43
[2018-09-19] MEDS ORDERED: RT-ALBUINH IH (13:04)
[2018-09-19] MEDS ORDERED: CLON0.1T PO (13:04)
[2018-09-19] MEDS ORDERED: RANI150T90 PO (13:04)
[2018-09-19] MEDS ORDERED: DILT120T3 PO (13:04)
[2018-09-19] MEDS ORDERED: AMIT10TA6 PO (13:04)
[2018-09-19] MEDS ORDERED: CLON0.5T13 PO (13:04)
[2018-09-19] MEDS ORDERED: SIMV40TA4 PO (13:04)
[2018-09-19 13:14] LABS: BASOPHILS # (AUTO) 0.1 10^3/uL (0.0-0.1); BASOPHILS % (AUTO) 1 % (0-10); EOSINOPHILS # (AUTO) 0.1 10^3/uL (0.0-0.3); EOSINOPHILS % (AUTO) 2 % (0-10); HEMATOCRIT 31 % (35-52); HEMOGLOBIN 10.7 G/DL (11.5-16.0); LYMPHOCYTES # (AUTO) 0.9 X 10^3 (1.0-4.0); LYMPHOCYTES % (AUTO) 11 % (12-44); MEAN CORPUSCULAR HEMOGLOBIN 30 PG (25-34); MEAN CORPUSCULAR HGB CONC 34 G/DL (32-36); MEAN CORPUSCULAR VOLUME 88 FL (80-99); MEAN PLATELET VOLUME 7.9 FL (7.4-10.4); MONOCYTES % (AUTO) 13 % (0-12); NEUTROPHILS # (AUTO) 5.7 X 10^3 (1.8-7.8); NEUTROPHILS % (AUTO) 73 % (42-75); PLATELET COUNT 391 10^3/uL (130-400); RED BLOOD COUNT 3.53 10^6/uL (4.35-5.85); RED CELL DISTRIBUTION WIDTH 13.1 % (10.0-14.5); WHITE BLOOD COUNT 7.8 10^3/uL (4.3-11.0)
[2018-09-19 13:33] LABS: ALANINE AMINOTRANSFERASE 9 U/L (0-55); ALKALINE PHOSPHATASE 91 U/L (40-136); BILIRUBIN,TOTAL 0.2 MG/DL (0.1-1.0); BUN/CREATININE RATIO 12; CALCIUM 8.9 MG/DL (8.5-10.1); CARBON DIOXIDE 22 MMOL/L (21-32); CHLORIDE 93 MMOL/L (98-107); CREATININE SERUM 0.93 MG/DL (0.60-1.30); GFR ESTIMATED > 60; GLUCOSE 99 MG/DL (70-105); POTASSIUM 4.5 MMOL/L (3.6-5.0); SODIUM 126 MMOL/L (135-145); TOTAL PROTEIN 6.5 GM/DL (6.4-8.2)
[2018-09-19] MEDS ORDERED: SIMV20TA3 PO (14:56)
[2018-09-19] MEDS ORDERED: OXYC1TAB12 PO (14:56)
[2018-09-19] MEDS ORDERED: DOCU100C37 PO (14:56)
[2018-09-19] MEDS ORDERED: SMTR50T PO (14:56)
[2018-09-19] MEDS ORDERED: CLON1TAB13 PO (14:56)
== END 2018-09-19 12:55 | disposition home or self-care (01) ==
LOC: PREOP 12:16
PROVIDERS: ATTEND Orthopaedic Surgery Orthopaedic Surgery of the Spine
DX: Z01.812 Encounter for preprocedural laboratory examination (principal); Z11.2 Encounter for screening for other bacterial diseases; M40.294 Other kyphosis, thoracic region; I10 Essential (primary) hypertension
CPT/HCPCS: 36415; 80053; 85025; 87081

== ENCOUNTER 2018-09-23 10:07 | Inpatient (IN) | payer OTHER ==
--- NOTE | 2018-09-19 15:00 | NUR ---
HAD A LIST OF MEDICATIONS FAXED OVER FROM [facility] IN [place] ([facility]) WELL CALLED [facility] FOR A LIST OF RECENTLY FILLED MEDICATIONS. [facility] FILLED: 09-16-18 DILTIAZEM 120MG BID #60 09-07-18 PERCOCET 10-325MG 1-2 Q4H PRN #60 (STATES SHE IS DOWN TO 1 Q6H PRN) 09-05-18 CLONIDINE 0.1MG BID PRN BP ELEVATED #60 (STATES SHE TAKES 1 TO 3 TABS DAILY PRN) 09-05-18 RAMIPRIL 10MG BID #60 09-01-18 CARISOPRODOL 350MG Q8H PRN #90 (TAKES BID SCHEDULED) [facility] FILLED: 09-16-18 SUMATRIPTAN 50MG UD #180 09-08-18 CLONAZEPAM 1MG HS #90 08-10-18 MONTELUKAST 10MG DAILY #90 08-10-18 PROTONIX 40MG DAILY #90 (NO LONGER TAKING, TAKES RANITIDINE 150MG BID INSTEAD) 08-10-18 LEVOTHYROXINE 125MCG DAILY #90 (TAKES 1/2 TAB DAILY) 07-19-18 AMITIZA 24MCG BID #180 07-17-18 BUPROPION XL 300MG DAILY #90 07-17-18 SIMVASTATIN 20MG HS #90 (PATIENT REPORTED 40MG BUT STATES SHE ONLY TAKES 1) 07-14-18 RAMIPRIL 10MG DAILY #90 (INCREASED TO BID) 07-14-18 QUETIAPINE 25MG DAILY #90 (NO LONGER TAKING) 07-12-18 AMITRIPTYLINE 10MG DAILY #90 07-04-18 BREO 100-25 1 PUFF DAILY #3 PATIENT ALSO TAKES THE FOLLOWING OTC: COLACE BID FLONASE BID ZANTAC 150MG BID SHE ALSO STATES SHE HAS PROAIR AND USES IT BID PRN COUGHING, AND TAKES SODIUM CHLORIDE BID.
[~2018-09-23] VITALS: Ht 152.4 cm; Wt 51.3 kg
[~2018-09-23 10:07] MED LIST changes: +AMIT10TA6 PO; +CLON0.1T PO; +CLON0.5T13 PO; +DILT120T3 PO; +DOCU100C37 PO; +OXYC1TAB12 PO; +RANI150T90 PO; +RT-ALBUINH IH; +SMTR50T PO
[2018-09-23 10:35] VITALS: BP 116/73
[2018-09-23] MEDS ORDERED: BISACODYL 10 MG SUPP (DULCOLAX) PR PRN (10:45)
[2018-09-23] MEDS: LACTATED RINGERS 1,000 ML IV PRN ×2 (10:45→13:35)
[2018-09-23] MEDS ORDERED: ACETAMINOPHEN 325 MG TABLET PO PRN (10:45)
[2018-09-23] MEDS ORDERED: ceFAZolin 2 GM IV Premixed 50 ML IV ONE (11:00)
[2018-09-23] MEDS ORDERED: ceFAZolin 2 GM IV Premixed 50 ML ONE (11:08)
[2018-09-23] MEDS ORDERED: SCOPOLAMINE 1.5 MG (TRANSDERM-SCOP) PATCH ONE (11:34)
[2018-09-23] MEDS ORDERED: FAMOTIDINE 20MG/2ML IV (PEPCID) ONE (11:34)
[2018-09-23] MEDS ORDERED: ONDANSETRON 4 MG/2 ML (SDV) Z0FRAN ONE ×2 (11:34→16:09)
[2018-09-23] MEDS ORDERED: FAMOTIDINE 20MG/2ML IV (PEPCID) IV ONE (12:00)
[2018-09-23] MEDS ORDERED: SCOPOLAMINE 1.5 MG (TRANSDERM-SCOP) PATCH TOP ONE (12:00)
[2018-09-23] MEDS ORDERED: ONDANSETRON 4 MG/2 ML (SDV) Z0FRAN IV ONE (12:00)
[2018-09-23] MEDS ORDERED: ROCURONIUM 10 MG/ML 5 ML SYRINGE IV ONE (12:19)
[2018-09-23] MEDS ORDERED: SEVOFLURANE (ULTANE) 15 ML INHAL SOLN ONE ×8 (12:19→13:56)
[2018-09-23] MEDS ORDERED: fentaNYL INJECTION 100 MCG/2 ML AMP ONE ×3 (12:19→15:00)
[2018-09-23] MEDS ORDERED: LIDOCAINE PF 2% 5 ML (XYLOCAINE) VIAL ONE (12:19)
[2018-09-23] MEDS ORDERED: proPOfol 200 MG/20 ML (DIPRIVAN) VIAL IV ONE (12:19)
[2018-09-23] MEDS ORDERED: MIDAZOLAM 2 MG/2 ML (VERSED) VIAL ONE (12:19)
[2018-09-23] MEDS ORDERED: DEXMEDETOMIDINE 200 MCG/2 ML (PRECEDEX) VIAL IV ONE (12:21)
[2018-09-23] MEDS ORDERED: NS (IVPB) 100 ML ONE (12:30)
[2018-09-23] MEDS ORDERED: fentaNYL INJECTION 100 MCG/2 ML AMP IVP ONE ×2 (12:30→17:30)
--- NOTE | 2018-09-23 13:16 | Diagnostic Imaging Report ---
INDICATION: Neck pain. Patient has undergone prior cervical spine and thoracic spine surgery. TIME OF EXAM: 12:51 p.m. Extensive spinal instrumentation is noted. There is anterior plate and screws transfixing the C3 through T1 levels. Hardware appears intact. A posterior instrumented fusion in the cervical spine from approximately C2 through C7 is seen. Hardware continues from the lower cervical into the thoracic spine. No fracture or loosening of the hardware is seen. No definite motion during flexion or extension is identified. IMPRESSION: Extensive cervical and thoracic spinal instrumentation. No complicating feature is seen. Dictated by: Dictated on workstation # [id number]
[2018-09-23] MEDS ORDERED: SUCCINYLCHOLINE INJ 100 MG/5 ML SYR ONE ×2 (13:17→17:49)
[2018-09-23] MEDS ORDERED: GENTAMICIN 40 MG/ML 2 ML INJ SDV ONE ×2 (13:31→16:36)
[2018-09-23] MEDS ORDERED: LACTATED RINGERS 1,000 ML IV ONE (13:57)
[2018-09-23] MEDS ORDERED: ceFAZolin INJECTION 2,000 MG in NS (IVPB) 50 ML IV SCH (14:45)
[2018-09-23] MEDS: NS IV 1000 ML 1,000 ML IV SCH ×2 (15:25→17:20)
[2018-09-23] MEDS ORDERED: TRANEXAMIC ACID 100 MG/ML 10 ML INJECTION IV ONE (15:48)
[2018-09-23 16:00] VITALS: BP 140/67
[2018-09-23] MEDS: VANCOMYCIN 1000 MG/VIAL ONE ×2 (16:05→17:11)
[2018-09-23] MEDS ORDERED: HYDROmorphone 2 MG/ML VIAL (DILAUDID) ONE (16:09)
[2018-09-23] MEDS ORDERED: VASOPRESSIN INJECTION 20 UNIT/ML VIAL ONE (16:25)
[2018-09-23] MEDS ORDERED: ALBUMIN 25% 25 GM/100 ML 100 ML IV ONE (16:28)
[2018-09-23] MEDS ORDERED: SUGAMMADEX 500 MG/5 ML VIAL (BRIDION) IV ONE (16:33)
[2018-09-23] MEDS ORDERED: fentaNYL INJECTION 250 MCG/5 ML AMP ONE (16:35)
--- NOTE | 2018-09-23 16:58 | Progress Note-Post Operative ---
Post-Operative Progess Note Surgeon (s)/Rental Agent (s) Surgeon ANAHI POLANCO MD Rental Agent: MIRELLA Michael Pre-Operative Diagnosis lumbar kyphosis, sagittal imbalance Post-Operative Diagnosis Same Procedure & Operative Findings Date of Procedure 09/23/18 Procedure Performed/Findings T7 Osteotomy, with revision instrumentation and fusion. Anesthesia Type GETA Estimated Blood Loss Estimated blood loss (mL): 600 Specimens/Packing Specimens Removed None ANAHI POLANCO MD Sep 23, 2018 16:58
[2018-09-23] MEDS ORDERED: NS IV 1000 ML 1,000 ML ONE (17:25)
[2018-09-23] MEDS ORDERED: ONDANSETRON 4 MG/2 ML (SDV) Z0FRAN IVP PRN (17:30)
[2018-09-23] MEDS ORDERED: HYDROmorphone 2 MG/ML VIAL (DILAUDID) IV ONE (17:30)
--- NOTE | 2018-09-23 18:20 | NUR ---
Pt. in room accompanied by staff and family. Pt. states feeling better. Sensation noted in extremities. Oriented to room and call light. No needs at this time.
[2018-09-23 20:00] VITALS: BP 109/72
--- NOTE | 2018-09-23 20:14 | Diagnostic Imaging Report ---
INDICATION: T7 osteotomy with revision and instrumentation. FINDINGS: 7.8 seconds of fluoroscopy time was provided for the patient's surgical procedure. IMPRESSION: Intraoperative fluoroscopy. Dictated by: Dictated on workstation # [id number]
[2018-09-23] MEDS: ceFAZolin 2 GM IV Premixed 50 ML IV SCH (20:29)
[2018-09-23] MEDS: oxyCODONE/APAP 10/325MG (PERCOCET 10) TABLET PO PRN (20:29)
[2018-09-23] MEDS: DOCUSATE SODIUM 100 MG (COLACE) CAP PO SCH (20:29)
[2018-09-23] MEDS: SENNOSIDES 8.6 MG (SENOKOT) TAB PO SCH (20:29)
--- NOTE | 2018-09-23 21:34 | NUR ---
This RN called Chepe Krishnan to update him on patient status. Patient is audibly sobbing. Patient had been given 2- 10/ Percocets and had several pain medications just prior to coming to the floor. This RN has tried several techniques to ease patients pain. Patient is unable to find a position of comfort. Patient states that she has a new pain on her lower left ribs. Patient will not hold still in bed. Patient is anxious. Vital signs are as noted. Chepe Krishnan orders Valium 5mg PO once. Order is repeated and confirmed. Will continue to monitor.
[2018-09-23] MEDS ORDERED: DIAZEPAM 2 MG (VALIUM) TAB PO ONE (21:45)
[2018-09-23] MEDS ORDERED: DIAZEPAM 5 MG (VALIUM) TABLET ONE (21:52)
[2018-09-23] MEDS ORDERED: DIAZEPAM 5 MG (VALIUM) TABLET PO ONE (22:00)
[2018-09-23] MEDS: fentaNYL INJECTION 100 MCG/2 ML AMP IVP PRN (23:26)
[2018-09-23 23:39] VITALS: BP 152/70
[2018-09-24] MEDS: BACLOFEN 10 MG (LIORESAL) TAB PO PRN ×2 (00:18→10:39)
[2018-09-24] MEDS: PROMETHAZINE 25 MG (PHENERGAN) TAB PO PRN ×3 (00:18→21:24)
[2018-09-24] MEDS: oxyCODONE/APAP 10/325MG (PERCOCET 10) TABLET PO PRN ×4 (01:29→18:02)
[2018-09-24] MEDS: ONDANSETRON 4 MG/2 ML (SDV) Z0FRAN IV PRN ×4 (03:26→19:50)
[2018-09-24] MEDS: fentaNYL INJECTION 100 MCG/2 ML AMP IVP PRN ×4 (03:28→15:20)
[2018-09-24] MEDS: ceFAZolin 2 GM IV Premixed 50 ML IV SCH ×2 (04:06→12:50)
[2018-09-24] MEDS: NS IV 1000 ML 1,000 ML IV SCH ×2 (04:06→21:08)
[2018-09-24 04:42] VITALS: BP 174/79
[2018-09-24] MEDS: MULTIVIT W/MINERALS TAB (THERAGRAN M) PO SCH ×2 (05:37→05:40)
[2018-09-24] MEDS: PANTOPRAZOLE 40 MG (PROTONIX) TAB PO SCH (05:38)
[2018-09-24 07:07] LABS: HEMOGLOBIN 9.3 G/DL (11.5-16.0); RED BLOOD COUNT 3.14 10^6/uL (4.35-5.85); RED CELL DISTRIBUTION WIDTH 12.3 % (10.0-14.5); WHITE BLOOD COUNT 18.1 10^3/uL (4.3-11.0)
[2018-09-24 07:34] LABS: ALANINE AMINOTRANSFERASE 10 U/L (0-55); ALBUMIN 4.4 GM/DL (3.2-4.5); ALKALINE PHOSPHATASE 88 U/L (40-136); BILIRUBIN,TOTAL 0.4 MG/DL (0.1-1.0); BUN/CREATININE RATIO 9; CALCIUM 8.7 MG/DL (8.5-10.1); CARBON DIOXIDE 23 MMOL/L (21-32); CHLORIDE 89 MMOL/L (98-107); CREATININE SERUM 0.76 MG/DL (0.60-1.30); GFR ESTIMATED > 60; GLUCOSE 135 MG/DL (70-105); POTASSIUM 3.6 MMOL/L (3.6-5.0); TOTAL PROTEIN 6.8 GM/DL (6.4-8.2)
[2018-09-24] MEDS: DOCUSATE SODIUM 100 MG (COLACE) CAP PO SCH ×2 (07:44→21:09)
[2018-09-24] MEDS: SENNOSIDES 8.6 MG (SENOKOT) TAB PO SCH ×2 (07:44→21:08)
[2018-09-24 07:51] LABS: SODIUM 123 MMOL/L (135-145)
[2018-09-24 07:56] VITALS: BP 179/99
--- NOTE | 2018-09-24 08:39 | Progress Note (SOAP) ---
Subjective Date Seen by a Provider: Sep 24, 2018 Time Seen by a Provider: 08:37 Subjective/Events-last exam Awake, alert, very uncomfortable. Requests more pain control. Does feel much straighter. Objective Exam Vital Signs Date Time Temp Pulse Resp B/P (MAP) Pulse Ox O2 Delivery O2 Flow Rate FiO2 09/24/18 04:42 98.1 79 18 174/79 (110) 100 Room Air 09/23/18 23:39 97.0 88 16 152/70 (97) 95 Room Air 09/23/18 20:00 96.5 85 20 109/72 (84) 94 Room Air 09/23/18 16:00 96.0 59 18 140/67 (91) 100 Room Air 09/23/18 10:35 98.1 63 16 116/73 (87) 99 Room Air I & O 09/24/18 07:00 Intake Total 5272 ml Output Total 4810 ml Balance 462 ml Capillary Refill : General Appearance: Moderate Distress Neck: Supple Respiratory: No Accessory Muscle Use, No Respiratory Distress Cardiovascular: Regular Rate, Rhythm, Normal Peripheral Pulses Gastrointestinal: non tender, soft Extremity: Normal Capillary Refill, No Calf Tenderness Neurologic/Psychiatric: Alert, Oriented x3, No Motor/Sensory Deficits Results Lab Laboratory Tests 09/24/18 06:41: White Blood Count 18.1H, Red Blood Count 3.14L, Hemoglobin 9.3L, Hematocrit 27L , Mean Corpuscular Volume 87, Mean Corpuscular Hemoglobin 30, Mean Corpuscular Hemoglobin Concent 34, Red Cell Distribution Width 12.3, Platelet Count 444H, Mean Platelet Volume 8.0, Sodium Level 123*L, Potassium Level 3.6, Chloride Level 89L, Carbon Dioxide Level 23, Anion Gap 11, Blood Urea Nitrogen 7, Creatinine 0.76, Estimat Glomerular Filtration Rate > 60, BUN/Creatinine Ratio 9 , Glucose Level 135H, Calcium Level 8.7, Corrected Calcium 8.4L, Total Bilirubin 0.4, Aspartate Amino Transf (AST/SGOT) 27, Alanine Aminotransferase ( ALT/SGPT) 10, Alkaline Phosphatase 88, Total Protein 6.8, Albumin 4.4 Assessment/Plan Assessment/Plan Assess & Plan/Chief Complaint Thoracic Kyphosis Sagittal Imbalance Chronic Opioid Use Hyponatremia Plan: Fluid restriction Pain control Mobilize with PT today ANAHI POLANCO MD Sep 24, 2018 08:39
--- NOTE | 2018-09-24 09:18 | OPERATIVE REPORT ---
DATE OF SERVICE: 09/23/2018 PREOPERATIVE DIAGNOSES: Thoracic kyphosis, sagittal imbalance, head gaze abnormality and persistent discomfort. POSTOPERATIVE DIAGNOSES: Thoracic kyphosis, sagittal imbalance, head gaze abnormality and persistent discomfort. PROCEDURE PERFORMED: 1. Thoracic seven pedicle subtraction (Marcus) osteotomy with reinsertion of spinal fixation devices from the lower cervical spine to the lumbar spine. Posterior spinal fusion for deformity from thoracic 4 to thoracic 9. 2. Autograft for spine surgery, local. DATE AND TIME OF SURGERY: Please see anesthesia record. SURGEON: Anahi Lee MD. COLLEGE OF EDUCATION DEAN: SHANEL Michael. ROLE OF INFANTRY ASSAULTMAN: Aid in retraction of the procedure, aid in implantation and tissue and wound closure. IMPLANTS USED: K2M [place] pedicle screws, K2M micha-to-micha connectors, K2M [place] instrumentation previously, Medtronic Infinium instrumentation with Medtronic Vertex Select in the cervical spine previously. ANESTHESIA: General endotracheal. ESTIMATED BLOOD LOSS: 600 mL. INTRAVENOUS FLUIDS: Please see anesthesia record. ANTIBIOTICS: Ancef. COMPLICATIONS: There was a brief drop in lower extremity motors and SSEPs that improved by closing when the change in motor evoked potentials occurred shortly after final closing of the osteotomy. The osteotomy was reopened wide; wider decompression around the osteotomy site was performed to make sure that there was no buckling or enfolding of the dura and once this was all done, there was no change in signals and therefore, a repeat closure of the osteotomy site as it was unstable and is more stable in a closed fashion and there was no compression was performed. Again, there was no change, sugammadex was given. A4/4 motor train was achieved and small responses were achieved. Blood pressure was normal and it was felt that if there had then, in fact, a change to the cord, it was already done and that there was no compression on the cord and the deformity correction as a shortening was not putting any tension or length on the cord and therefore, was left in place. NEUROMONITORING: Standard intraoperative neuromonitoring carried out by means of realtime continuous high quality bidirectional mode, audio and visual communication to both the certified surgical technician and surgeon by Dr. Patel was performed. SSEPS, EMGs, TcMEPs, TOFs were carried out continuously throughout the procedure. Changes as noted above were encountered. INDICATIONS FOR PROCEDURE: The patient is a 62-year-old female with extensive previous fusions. She has been left after her last proximal junctional kyphosis surgery, feeling like she is looking at the ground and cannot get her head up and just unequivocally states she cannot live like that. An extensive discussion was held with the patient about the risks of thoracic osteotomy, but feels compelled to proceed. DESCRIPTION OF PROCEDURE: The patient was taken to the preoperative holding area and brought back to the operative suite. After adequate induction of general anesthetic, preoperative antibiotics, carefully rolled prone on Jarrod table, careful padding to all extremities, sterile prep and drape to posterior cervical, thoracic and lumbar spine. Incision was made from the lower cervical spine to the thoracolumbar junction. The hardware was exposed. It was loose. The desktop publishing associate of the [place] set that was at thoracic 7 was exposed and the rods were dropped. The screws were removed and then a Marcus osteotomy was created removing both pedicles and decompressing the level. There was some epidural scarring present because previously sublaminar bands had been placed and there was some epidural scarring present, which was freed up to make sure the dura was free. A closing micha was placed and once both sides had been closed the micha was allowed to slowly close down and compression maneuvers were performed. Neuro monitoring was performed throughout and then a micha was contoured and bent for the right side and connects to the cervical spine to the previous upper thoracic instrumentation and then micha-to-micha connectors placing it and tying it on to the thoracolumbar instrumentation. Micha closure on the contralateral side was performed as well after the temporary micha was removed. Once final tightening was performed and repeat motors were again assessed. There was a change noted at that point. A further widening decompression at the osteotomy site, which was closed down and the lamina was touching and aligned nicely, but nearly touching bone on bone was widened and a wide laminectomy site was performed. The dura was buckled, but it was not compressive and I did not see any signs of compression but a wide laminectomy at this site up about 1 level and down 1 level was performed. No change was noted in neuromonitoring at this point, and at this point, the rods were loosened and some reversal of the correction was achieved. This was allowed to set for a period of time and again motors were attempted and again no change was noted in SSEPs or motors and sugammadex was given and no change was noted in motors as well. At this point, it was felt that either an event had occurred in the cord or that they were unreliable, but leaving the patient in a gapped open kyphotic position was unstable and seen directly that the cord was not compressed that tightening osteotomy site back down was prudent and therefore, this was performed, after some time, There were motor potentials achieved in the lower extremities even in the closed state and at this point, decompression of the posterior elements from approximately thoracic 4, 5 down to thoracic 9 was performed and autograft bone from the osteotomy site was packed posteriorly for the fusion portion of procedure. Deep drain was placed. Wound was closed in layers and the patient was transferred to the ICU for recovery. Neuromonitoring will obviously be checked. Job ID: [id number] DocumentID: [id number] Dictated Date: 09/23/2018 17:08:03 Advertising Specialist Date: 09/24/2018 02:08:33 Dictated By: ANAHI LEE MD
[2018-09-24] MEDS: oxyCODONE ER 40 MG (oxyCONTIN CR) TAB PO SCH ×3 (09:26→21:09)
[2018-09-24 11:24] VITALS: BP 175/109
--- NOTE | 2018-09-24 11:38 | NUR ---
PT ASSESSMENT COMPLETE SEE FLOW SHEET - THROUGHT THE MORNING SHIFT PT HAS BEEN LAYING IN BED HUNCHED OVER AND ON ALL 4, PT MOANING OUT STATES " GIVE ME EVERYTHING YOU CAN FOR THIS PAIN", DRESSINGS TO BACK D/I. PT HAS BEEN GIVEN PRESCRIBED MEDICATIONS AND THIS RN ALONG WITH PCT WERE ABLE TO GET PT UP INTO CHAIR HOWEVER ONLY MAINTAINED CHAIR FOR APPROXIMATELY 20 MIN. PHYSICAL THERAPY WORKED WITH PT AND AT THIS TIME PT IN BED. RAILS ARE UP X 4, CALL LIGHT AND OTHER PERSONAL ITEMS ARE WITHIN REACH WILL CONTINUE TO MONITOR.
--- NOTE | 2018-09-24 12:14 | Physical Therapy Evaluation ---
PT Evaluation-General Medical Diagnosis Admission Date Sep 23, 2018 at 10:07 Medical Diagnosis: thoracic kyphosis Onset Date: Sep 23, 2018 Therapy Diagnosis Therapy Diagnosis: impaired transfers and gait Height/Weight Height (Feet): 5 Height (Inches): 0.00 Weight (Pounds): 113 Weight (Ounces): 0.0 Precautions Precautions/Isolations: Fall Prevention, Standard Precautions Weight Bear Status Right Lower Extremity: Right Full Weight Bearing Left Lower Extremity: Left Full Weight Bearing Referral Physician: Jhonathan Lee Reason for Referral: Evaluation/Treatment Medical History Pertinent Medical History: GERD, Rheumatoid Arthritis Additional Medical History back surgery x 6 Current History cervical through lumbar hardware repair/replacement. Fusion T4-9 Prior/Core FIM Prior Level of Function Therapy Code Descriptions/Definitions Functional [place] Measure: 0=Not Assessed/NA 4=Minimal Assistance 1=Total Assistance 5=Supervision or Setup 2=Maximal Assistance 6=Modified [place] 3=Moderate Assistance 7=Complete [place] Therapy Quality Codes: 6 Independent with activity with or without an assistive device 5 Patient requires set up or clean up by helper. Patient completes activity by themselves 4 Supervision or touching assist (CGA). [place] provide cues , steadying assist 3 The helper provides less than half the effort to complete the activity 2 The helper provides more than half the effort to complete the activity 1 Dependent. The helper does all the effort to complete an activity 7 Patient refused to complete or attempt activity 9 The patient did not perform the activity before the current illness or injury 88 Not attempted due to Medical conditions or safety concerns Functional Abilities and Goals: Independent: Patient completed the activities by him/herself, with or without an assistive device, with no assistance from a helper. Needed Some Help: Patient needed partial assistance from another person to complete activities. Dependent: A helper completed the activities for the patient. Unknown: Not Applicable: PT Evaluation-Current Subjective Pt has a history of spinal pain with kyphotic deformity. She reports 6-7 spinal surgeries with hardware from her low cervical to upper lumbar spine. Pt has had chronic pain since her last surgery and has not been able to hold her head up. She elected to have surgical revision to improve upright posture and reduce pain. Pt in 10/10 pain at time of eval. Repeatedly yelling help me, I need something for pain, get me back in bed. She was not able to provide a good subjective history due to her pain. Objective Patient Orientation: Confused Problem Solving: Poor Attachments: Drains, Bell Catheter ROM/Strength ROM Upper Extremities Not tested ROM Lower Extremities WFL Strength Lower Extremities Unable to test due to pain. Pt reported that she could not feel her legs. Sensory Sensation Lower Extremities impaired proprioception Transfers Therapy Code Descriptions/Definitions Functional [place] Measure: 0=Not Assessed/NA 4=Minimal Assistance 1=Total Assistance 5=Supervision or Setup 2=Maximal Assistance 6=Modified [place] 3=Moderate Assistance 7=Complete [place] Transfers (B, C, W/C) (FIM): 3 Scootin Rollin Supine to/from Sit: 5 Sit to/from Stand: 4 Pt unsafe with transfers. She transferred from bed to chair with Min Assist but reported that she could not feel her legs. She was able take herself from sitting to sideling to prone. Pt was writing in pain and moving about the bed to try and find a comfortable position. Gait Comments/Gait Description Patient was not willing or able to ambulate at time of evaluation due to pain. Primary complaint was pain in her ribs. Balance Sitting Static: Poor Sitting Dynamic: Poor Assessment/Needs Rehab Potential: Guarded Post Rehab Potential-Barriers: uncontrolled chronic pain limiting activity and participation in therapies PT Seo Professional Goals Seo Professional Goals PT Mcc Goals Time Frame: Sep 28, 2018 Transfers (B,C,W/C) (FIM): 6 Gait (FIM): 6 Gait distance (FIM): 3=150 ft Distance: 150 Gait Level of Assist: 6 Gait Assistive Device: FWW PT Plan Problem List Problem List: Activity Tolerance, Safety, Balance, Gait, Transfer Treatment/Plan Treatment Plan: Continue Plan of Care Treatment Plan: Bed Mobility, Education, Gait, Safety, Transfers Treatment Duration: Sep 28, 2018 Frequency: 6 times per week Estimated Hrs Per Day: .25 hour per day Patient and/or Family Agrees t: Yes Time/GCodes Time In: 1200 Time Out: 1220 Total Billed Treatment Time: 20 Total Billed Treatment visit, evaluation high complexity KARTHIKEYAN HORTON PT Sep 24, 2018 12:14
--- NOTE | 2018-09-24 12:23 | Consultation-Hospitalist ---
HPI History of Present Illness: HPI/Chief Complaint CC: s/p uncomplicated spine surgery for kyphosis per Dr. Lee HPI: This is a 62-year-old white female known to me from 2017 extensive spinal surgery requiring extensive and lengthy ICU stay with blood transfusions IV fluids and pressor therapy for hypotension in a clinic patient of Dr. Arzola in the [place], [place] who has a history of long-standing mental illness and difficulty coping with pain and disease, hypertension, hyponatremia and hypothyroidism who is currently in distress due to severe pain and she is in bed facing forward crouched down and crying. Multiple meds have been given. I have restarted all of her home medication especially her mood stabilizers which helped last time once those were able to be restarted. At this current time her sodium level was noted to be 123 placed on fluid restriction of 800 mL a day and we'll restart her sodium tablets since this is a chronic condition of SIADH in addition to maintaining normal saline at 100 mL an hour. Source: RN/MD Exam Limitations: clinical condition Date Seen 09/24/18 Attending Physician Jhonathan Lee MD PCP No,Local Physician Referring Physician Date of Admission Sep 23, 2018 at 10:07 Home Medications & Allergies Home Medications Reviewed patient Home Medication Reconciliation performed by pharmacy medication reconciliations voice and data technician and/or nursing. Patients Allergies have been reviewed. Allergies Allergies Coded Allergies adalimumab (Verified Allergy, Intermediate, HIVES, 01/18/17) morphine (Verified Allergy, Intermediate, N/V, 01/18/17) Past Vuajjyk-Hfzzfe-Vskrjx Hx Past Med/Social Hx: Reviewed Nursing Past Med/Soc Hx, Reviewed and Corrections made Patient Social History Employed/Student: unemployed Alcohol Use: Occasionally Uses Recreational Drug Use: No Smoking Status: Unknown if Ever Smoked Physical Abuse Screen: No Sexual Abuse: No Recent Foreign Travel: No Contact w/other who traveled: No Recent Hopitalizations: No Recent Infectious Disease Expo: No Immunizations Up To Date Tetanus Booster (TDap): Less than 5yrs Date of Pneumonia Vaccine: Jun 06, 2017 Date of Influenza Vaccine: Jun 06, 2018 Seasonal Allergies Seasonal Allergies: Yes Past Medical History Surgeries: Orthopedic Cardiac: High Cholesterol, Hypertension Neurological: Neuropathy Sexually Transmitted Disease: No HIV/AIDS: No Gastrointestinal: Gastroesophageal Reflux, Chronic Constipation, Diverticulosis , Irritable Bowel Musculoskeletal: Degenerate Disk Disease, Arthritis, Rheumatoid Arthritis, Chronic Back Pain Endocrine: Hypothyroidsim Loss of Vision: Bilateral Hearing Impairment: Denies Psychosocial: Anxiety, Depression History of Blood Disorders: No (hx low sodium) Adverse Reaction to Blood [place]: No Family History BREAST CANCER G8 SISTER CHF 19 FATHER Cardiovascular disease 19 FATHER Dementia 19 MOTHER Hypertension 19 FATHER MOOD DISORDER 19 FATHER G8 SISTER Psychosocial problem G8 SISTER Respiratory disorder 19 FATHER G8 SISTER Thyroid disease G8 SISTER ULCERS 19 FATHER Review of Systems Constitutional: see HPI Musculoskeletal: back pain All Other Systems Reviewed Negative Unless Noted: Yes Physical Exam Physical Exam Vital Signs Vital Signs - First Documented 09/23/18 10:35 Temp 98.1 Pulse 63 Resp 16 B/P (MAP) 116/73 (87) Pulse Ox 99 O2 Delivery Room Air Capillary Refill : Height, Weight, BMI Height: 5'0.00" Weight: 113lbs. 0.0oz. 51.660454dl; 22.1 BMI Method: General Appearance: Anxious, Chronically ill, Severe Distress HEENT: PERRL/EOMI, Normal ENT Inspection, Pharynx Normal Neck: Full Range of Motion, Normal Inspection, Non Tender, Supple, Carotid Bruit Respiratory: Chest Non Tender, Lungs Clear, Normal Breath Sounds, No Accessory Muscle Use, No Respiratory Distress Cardiovascular: Regular Rate, Rhythm, No Edema, No Gallop, No JVD, No Murmur, Normal Peripheral Pulses Gastrointestinal: Normal Bowel Sounds, No Organomegaly, No Pulsatile Mass, Non Tender, Soft Back: Decreased Range of Motion, Muscle Spasm, Vertebral Tenderness Extremity: Normal Capillary Refill, Normal Inspection, Normal Range of Motion, Non Tender, No Calf Tenderness, No Pedal Edema Neurologic/Psychiatric: Alert, Oriented x3, No Motor/Sensory Deficits, Normal Mood/Affect Results Results/Procedures Labs Laboratory Tests 09/24/18 06:41 Patient resulted labs reviewed. Assessment/Plan Assessment and Plan Assess & Plan/Chief Complaint Assessment: s/p kyphosis surgery POD # [address] Lee h/o severe and recurrent nausea and vomiting following surgery usually requiring Scopolamine patch and Zofran RA on biological immunosuppressives Hypothyroidism HTN as out pt HLP Migraines Post op anemia due to acute blood loss h/o self-medicating out of purse with Percocet during last admit Hyponatremia on fluid restriction 800 cc and NS at 100cc/hr since 123 is level currently Hypokalemia hx h/o post op constipation refuses any intervention in the past Mental illness restarted all meds today Extensive spine surgery 2017 w/hypotension and multiple transfusions required along with pressor therapy and lengthy ICU stay Plan: Pain control Change fluid restriction to 800 mL Check labs in a.m. Maintain normal saline at 100 mL/hour Restarted all mood stabilizers Diagnosis/Problems Diagnosis/Problems (1) S/P spinal surgery Status: Acute (2) Difficulty coping with pain Status: Acute (3) Hyponatremia Status: Acute (4) Chronic mental illness Status: Chronic (5) Hypertension Status: Chronic Qualifiers: Hypertension type: essential hypertension Qualified Codes: I10 - Essential (primary) hypertension (6) Hypothyroidism Status: Chronic Qualifiers: Hypothyroidism type: acquired Qualified Codes: E03.9 - Hypothyroidism, unspecified (7) Anemia due to blood loss, acute Status: Acute (8) Rheumatoid arthritis Status: Chronic Qualifiers: Rheumatoid arthritis location: unspecified site Rheumatoid factor presence : unspecified presence Qualified Codes: M06.9 - Rheumatoid arthritis, unspecified HAN LOPEZ DO Sep 24, 2018 12:23
[2018-09-24] MEDS ORDERED: SUMAtriptan 50 MG (IMITREX) TAB PO PRN (12:30)
[2018-09-24] MEDS ORDERED: cloNIDine 0.1 MG (CATAPRES) TAB PO PRN (12:30)
[2018-09-24] MEDS ORDERED: RT-ALBUTEROL SULF 2.5 MG/3 ML PRE-MIX VIAL IH PRN (12:30)
--- NOTE | 2018-09-24 13:15 | Occ Therapy Progress Note ---
Therapy Progress Note 1310 Attempted OT evaluation. Daughter reported that pt has just now calmed down from being in pain and requested that OT evaluation be deferred. Will follow and reassess on 09-26-18. visit ALLY RESTREPO OT Sep 24, 2018 13:15
[2018-09-24 16:00] VITALS: BP 147/64
--- NOTE | 2018-09-24 18:07 | Anesthesia-General Post-Op ---
General Patient Condition Mental Status/LOC: Same as Preop Cardiovascular: Satisfactory Nausea/Vomiting: Present Respiratory: Satisfactory Pain: Uncontrolled Post Op Complications Complications None Follow Up Care/Instructions Patient Instructions None needed. Anesthesia/Patient Condition Patient Condition Patient is in significant pain in her ribs. PONV she relates to pain. Up walking. Shooting pains in legs and back D/C home per [facility] Criteria: MIRIAM Roberto CRNA Sep 24, 2018 18:07
[2018-09-24 19:11] VITALS: BP 130/97
[2018-09-24] MEDS: RT-ADVAIR HFA 115/21 MCG PER PUFF IH SCH (20:09)
[2018-09-24] MEDS: SODIUM CHLORIDE 1 GM TAB (NON-FORMULARY) PO SCH (21:00)
[2018-09-24] MEDS: FLUTICASONE NASAL SPRAY (FLONASE) 16 GM BTL NS SCH (21:00)
[2018-09-24] MEDS: LUBIPROSTONE 8 MCG (AMITIZA) CAPSULE NON-FORMULARY PO SCH (21:08)
[2018-09-24] MEDS: SIMvastatin 20 MG (ZOCOR) TAB PO SCH (21:08)
[2018-09-24] MEDS: clonazePAM 1 MG (KlonoPIN) TAB PO SCH (21:08)
[2018-09-24] MEDS: CARISOPRODOL 350 MG (SOMA) TAB PO SCH (21:09)
[2018-09-24] MEDS: RAMIPRIL 5 MG (ALTACE) CAP PO SCH (21:09)
[2018-09-24] MEDS: FAMOTIDINE 20 MG (PEPCID) TABLET PO SCH (21:09)
[2018-09-24] MEDS: buPROPion SR 150 MG (WELLBUTRIN SR) TAB PO SCH (21:09)
[2018-09-24] MEDS: AMITRIPTYLINE 10 MG (ELAVIL) TAB PO SCH (21:09)
[2018-09-24] MEDS: DILTIAZEM 60 MG (CARDIZEM) TAB PO SCH (21:09)
--- NOTE | 2018-09-24 22:50 | NUR ---
SPOKE TO [facility] FOR DR POLANCO. DUE TO SODIUM CHLORIDE TABS NOT BEING AVAILABLE UNTIL MORNING IT IS OK TO MISS THIS DOSE EVEN WITH THE CRITICAL LAB. TORBV. NOTIFIED CFO.
[2018-09-25 00:11] VITALS: BP 133/62
[2018-09-25 04:02] VITALS: BP 120/70
[2018-09-25 05:21] LABS: BASOPHILS % (AUTO) 0 % (0-10); EOSINOPHILS % (AUTO) 0 % (0-10); HEMATOCRIT 29 % (35-52); HEMOGLOBIN 10.4 G/DL (11.5-16.0); LYMPHOCYTES # (AUTO) 0.6 X 10^3 (1.0-4.0); LYMPHOCYTES % (AUTO) 3 % (12-44); MEAN CORPUSCULAR HEMOGLOBIN 30 PG (25-34); MEAN CORPUSCULAR HGB CONC 35 G/DL (32-36); MEAN CORPUSCULAR VOLUME 86 FL (80-99); MEAN PLATELET VOLUME 7.9 FL (7.4-10.4); MONOCYTES % (AUTO) 10 % (0-12); NEUTROPHILS # (AUTO) 18.6 X 10^3 (1.8-7.8); NEUTROPHILS % (AUTO) 88 % (42-75); PLATELET COUNT 450 10^3/uL (130-400); RED BLOOD COUNT 3.43 10^6/uL (4.35-5.85); WHITE BLOOD COUNT 21.3 10^3/uL (4.3-11.0)
[2018-09-25] MEDS: MULTIVIT W/MINERALS TAB (THERAGRAN M) PO SCH (05:30)
[2018-09-25] MEDS: LEVOTHYROXINE 125 MCG (LEVOTHROID) TABLET PO SCH (05:30)
[2018-09-25] MEDS: oxyCODONE/APAP 10/325MG (PERCOCET 10) TABLET PO PRN ×2 (05:31→17:51)
[2018-09-25] MEDS: PROMETHAZINE 25 MG (PHENERGAN) TAB PO PRN (05:31)
[2018-09-25] MEDS: PANTOPRAZOLE 40 MG (PROTONIX) TAB PO SCH (05:31)
[2018-09-25 05:50] LABS: ALANINE AMINOTRANSFERASE 19 U/L (0-55); ALKALINE PHOSPHATASE 79 U/L (40-136); BILIRUBIN,TOTAL 0.3 MG/DL (0.1-1.0); BUN/CREATININE RATIO 8; CALCIUM 8.8 MG/DL (8.5-10.1); CARBON DIOXIDE 22 MMOL/L (21-32); CHLORIDE 93 MMOL/L (98-107); CREATININE SERUM 0.72 MG/DL (0.60-1.30); GFR ESTIMATED > 60; GLUCOSE 115 MG/DL (70-105); MAGNESIUM 2.1 MG/DL (1.8-2.4); POTASSIUM 3.6 MMOL/L (3.6-5.0); SODIUM 128 MMOL/L (135-145); TOTAL PROTEIN 6.4 GM/DL (6.4-8.2)
[2018-09-25 05:55] LABS: BAND NEUTROPHILS 2 %; NEUTROPHILS % (MANUAL) 90 %
[2018-09-25 05:56] LABS: LYMPHOCYTES % (MANUAL) 3 %; MONOCYTES % (MANUAL) 5 %; RBC MORPH NORMAL
[2018-09-25 07:45] VITALS: BP 116/56
[2018-09-25] MEDS: RT-ADVAIR HFA 115/21 MCG PER PUFF IH SCH ×2 (07:53→20:15)
--- NOTE | 2018-09-25 09:07 | Physical Therapy Progress Note ---
Therapy Progress Note Patient is resting peacefully and family adamantly declined PT on this date due to this. PT respects family wishes. PT did reposition SCD's and Bell tubing and placed a pillow between patient's LE's for comfort. PT to increase activity in a.m. and family agrees with plan. 1 ref LAUREANO KWON PT Sep 25, 2018 09:07
--- NOTE | 2018-09-25 09:15 | Progress Note (SOAP) ---
Subjective Date Seen by a Provider: Sep 25, 2018 Time Seen by a Provider: 09:12 Subjective/Events-last exam POD #2 Patient and her daughter state that her pain is much better controlled, today. complains of "tingling" in the legs. Review of Systems General: No Chills Pulmonary: No Cough Cardiovascular: No: Chest Pain Gastrointestinal: No: Nausea, Vomiting, Abdominal Pain Musculoskeletal: back pain; No: leg pain Neurological: No: Weakness, Numbness, Confusion Objective Exam Vital Signs Date Time Temp Pulse Resp B/P (MAP) Pulse Ox O2 Delivery O2 Flow Rate FiO2 09/25/18 07:53 95 Room Air 09/25/18 07:45 98.6 112 20 116/56 (76) 99 Room Air 09/25/18 04:02 97.1 101 20 120/70 (87) 96 Room Air 09/25/18 00:11 98.7 95 16 133/62 (85) 93 Room Air 09/24/18 20:09 96 Room Air 09/24/18 19:11 100.0 9 18 130/97 (108) 98 Room Air 09/24/18 16:00 99.7 104 22 147/64 (91) 97 Room Air 09/24/18 11:24 98.7 89 20 175/109 (131) 100 Room Air I & O 09/25/18 07:00 Intake Total 2250 ml Output Total 5165 ml Balance -2915 ml Capillary Refill : General Appearance: No Apparent Distress Neck: Non Tender Respiratory: No Respiratory Distress Cardiovascular: Normal Peripheral Pulses Gastrointestinal: non tender, soft Extremity: Non Tender Neurologic/Psychiatric: Alert, Oriented x3, No Motor/Sensory Deficits, Normal Mood/Affect, wedger machine II-XII Norm as Tested Skin: Other (Dressing CDI) Results Lab Laboratory Tests 09/25/18 05:01: White Blood Count 21.3H, Red Blood Count 3.43L, Hemoglobin 10.4L, Hematocrit 29L , Mean Corpuscular Volume 86, Mean Corpuscular Hemoglobin 30, Mean Corpuscular Hemoglobin Concent 35, Red Cell Distribution Width 13.0, Platelet Count 450H, Mean Platelet Volume 7.9, Neutrophils (%) (Auto) 88H, Lymphocytes (%) (Auto) 3L , Monocytes (%) (Auto) 10, Eosinophils (%) (Auto) 0, Basophils (%) (Auto) 0, Neutrophils # (Auto) 18.6H, Lymphocytes # (Auto) 0.6L, Monocytes # (Auto) 2.0H, Eosinophils # (Auto) 0.0, Basophils # (Auto) 0.0, Neutrophils % (Manual) 90, Lymphocytes % (Manual) 3, Monocytes % (Manual) 5, Band Neutrophils 2, Blood Morphology Comment NORMAL, Sodium Level 128L, Potassium Level 3.6, Chloride Level 93L, Carbon Dioxide Level 22, Anion Gap 13, Blood Urea Nitrogen 6L, Creatinine 0.72, Estimat Glomerular Filtration Rate > 60, BUN/Creatinine Ratio 8 , Glucose Level 115H, Calcium Level 8.8, Corrected Calcium 8.8, Magnesium Level 2.1, Total Bilirubin 0.3, Aspartate Amino Transf (AST/SGOT) 50H, Alanine Aminotransferase (ALT/SGPT) 19, Alkaline Phosphatase 79, Total Protein 6.4, Albumin 4.0 Assessment/Plan Assessment/Plan Assess & Plan/Chief Complaint Thoracic Kyphosis Sagittal Imbalance Chronic Opioid Use Hyponatremia- improving Plan Add Gabapentin Continue current care Will attempt more PT and JITENDRA ocampo tomorrow MARIA HANNA Sep 25, 2018 09:15
[2018-09-25] MEDS: LUBIPROSTONE 8 MCG (AMITIZA) CAPSULE NON-FORMULARY PO SCH ×2 (10:12→20:57)
[2018-09-25] MEDS: ONDANSETRON 4 MG/2 ML (SDV) Z0FRAN IV PRN (10:12)
[2018-09-25] MEDS: SENNOSIDES 8.6 MG (SENOKOT) TAB PO SCH ×2 (10:13→20:56)
[2018-09-25] MEDS: buPROPion SR 150 MG (WELLBUTRIN SR) TAB PO SCH ×2 (10:13→20:55)
[2018-09-25] MEDS: SODIUM CHLORIDE 1 GM TAB (NON-FORMULARY) PO SCH ×2 (10:14→21:04)
[2018-09-25] MEDS: RAMIPRIL 5 MG (ALTACE) CAP PO SCH ×2 (10:14→20:57)
[2018-09-25] MEDS: DILTIAZEM 60 MG (CARDIZEM) TAB PO SCH ×2 (10:14→20:56)
[2018-09-25] MEDS: MONTELUKAST 10 MG (SINGULAIR) TAB PO SCH (10:14)
[2018-09-25] MEDS: DOCUSATE SODIUM 100 MG (COLACE) CAP PO SCH ×2 (10:14→20:56)
[2018-09-25] MEDS: CARISOPRODOL 350 MG (SOMA) TAB PO SCH ×2 (10:14→20:57)
[2018-09-25] MEDS: oxyCODONE ER 40 MG (oxyCONTIN CR) TAB PO SCH ×3 (10:14→20:55)
[2018-09-25] MEDS: FAMOTIDINE 20 MG (PEPCID) TABLET PO SCH ×2 (10:14→20:56)
[2018-09-25] MEDS: FLUTICASONE NASAL SPRAY (FLONASE) 16 GM BTL NS SCH ×2 (10:31→20:58)
[2018-09-25] MEDS: NS IV 1000 ML 1,000 ML IV SCH (10:31)
[2018-09-25 11:26] VITALS: BP 137/65
[2018-09-25] MEDS ORDERED: POTASSIUM CHLORIDE INJ 10 MEQ in NS IV 1000 ML 1,000 ML IV SCH (12:33)
--- NOTE | 2018-09-25 12:35 | Progress Note-Hospitalist ---
Subjective HPI/CC On Admission Date Seen by Provider: Sep 25, 2018 Time Seen by Provider: 11:30 CC: s/p uncomplicated spine surgery for kyphosis per Dr. Lee HPI: This is a 62-year-old white female known to me from 2017 extensive spinal surgery requiring extensive and lengthy ICU stay with blood transfusions IV fluids and pressor therapy for hypotension in a clinic patient of Dr. Arzola in the [place], [place] who has a history of long-standing mental illness and difficulty coping with pain and disease, hypertension, hyponatremia and hypothyroidism who is currently in distress due to severe pain and she is in bed facing forward crouched down and crying. Multiple meds have been given. I have restarted all of her home medication especially her mood stabilizers which helped last time once those were able to be restarted. At this current time her sodium level was noted to be 123 placed on fluid restriction of 800 mL a day and we'll restart her sodium tablets since this is a chronic condition of SIADH in addition to maintaining normal saline at 100 mL an hour. Subjective/Events-last exam Patient doing much better Pain is controlled Started all home meds yesterday Daughter at the bedside Very pleased with comfort level now Checked meds and labs Maintained on catheter Hyponatremia improved at 128 Fluid restriction at 800 mL oral fluid Will decrease IV fluid to 70 Review of Systems Musculoskeletal: back pain Objective Exam Vital Signs Vital Signs Date Time Temp Pulse Resp B/P (MAP) Pulse Ox O2 Delivery O2 Flow Rate FiO2 09/25/18 11:26 98.8 118 20 137/65 (89) 99 Room Air Capillary Refill : General Appearance: No Apparent Distress, WD/WN, Chronically ill, Thin Respiratory: Chest Non Tender, Lungs Clear, Normal Breath Sounds, No Accessory Muscle Use, No Respiratory Distress Cardiovascular: Regular Rate, Rhythm, No Edema, No Gallop, No JVD, No Murmur, Normal Peripheral Pulses Neurologic/Psychiatric: Other (sleepy) Results/Procedures Lab Laboratory Tests 09/25/18 05:01 Patient resulted labs reviewed. Assessment/Plan Assessment and Plan Assess & Plan/Chief Complaint Assessment: s/p kyphosis surgery POD # [address] Lee h/o severe and recurrent nausea and vomiting following surgery usually requiring Scopolamine patch and Zofran RA on biological immunosuppressives Hypothyroidism HTN as out pt HLP Migraines Post op anemia due to acute blood loss h/o self-medicating out of purse with Percocet during last admit Hyponatremia on fluid restriction 800 cc and NS at 100cc/hr since 123 yesterday now 128 Hypokalemia hx h/o post op constipation refuses any intervention in the past Mental illness restarted all meds today Extensive spine surgery 2016 w/hypotension and multiple transfusions required along with pressor therapy and lengthy ICU stay Plan: Pain control Maintain fluid restriction to 800 mL Check labs in a.m. Maintain normal saline but decrease to 70 mL/hour Restarted all mood stabilizers Diagnosis/Problems Diagnosis/Problems (1) S/P spinal surgery Status: Acute (2) Difficulty coping with pain Status: Acute (3) Hyponatremia Status: Acute (4) Chronic mental illness Status: Chronic (5) Hypertension Status: Chronic Qualifiers: Hypertension type: essential hypertension Qualified Codes: I10 - Essential (primary) hypertension (6) Hypothyroidism Status: Chronic Qualifiers: Hypothyroidism type: acquired Qualified Codes: E03.9 - Hypothyroidism, unspecified (7) Anemia due to blood loss, acute Status: Acute (8) Rheumatoid arthritis Status: Chronic Qualifiers: Rheumatoid arthritis location: unspecified site Rheumatoid factor presence : unspecified presence Qualified Codes: M06.9 - Rheumatoid arthritis, unspecified HAN LOPEZ DO Sep 25, 2018 12:35
--- NOTE | 2018-09-25 15:32 | Diagnostic Imaging Report ---
PATIENT HISTORY: Postop scoliosis surgery. TECHNIQUE: Two views of the chest. COMPARISON: 01/28/2017 FINDINGS: Lung volumes are mildly large. No focal consolidation is seen. No pleural effusion or pneumothorax is identified. The cardiac silhouette is normal in size. There is extensive spinal fusion extending from the cervical spine through the thoracic spine into the lumbar spine. No immediate hardware complication is seen, although this is not optimized for the spine. There appears to be a compression deformity at the midthoracic spine, may be T7. There is tubing seen posteriorly. Marked soft tissue edema with soft tissue gas and skin corona are seen posteriorly. IMPRESSION: 1. No acute pulmonary abnormality seen. 2. Extensive fusion of the spine, as described above. Postoperative changes including soft tissue edema seen posteriorly. There appears to be compression deformity of a midthoracic spine vertebral body. Dictated by: Dictated on workstation # [id number]
[2018-09-25 15:58] VITALS: BP 117/65
--- NOTE | 2018-09-25 18:15 | NUR ---
PT REQUESTING IVF TO BE D/C STATES " THERE ANNOYING HER" IV SITE IS FINE, DR LOPEZ NOTIFIED NEW ORDERS RECEIVED TO D/C IVF. FLUIDS D/C .
[2018-09-25] MEDS: AMITRIPTYLINE 10 MG (ELAVIL) TAB PO SCH (20:56)
[2018-09-25] MEDS: SIMvastatin 20 MG (ZOCOR) TAB PO SCH (20:56)
[2018-09-25] MEDS: GABAPENTIN 300 MG (NEURONTIN) CAP PO SCH (20:57)
[2018-09-25] MEDS: clonazePAM 1 MG (KlonoPIN) TAB PO SCH (20:59)
[2018-09-25 23:55] VITALS: BP 98/49
[2018-09-26 03:47] VITALS: BP 107/54
--- NOTE | 2018-09-26 04:05 | NUR ---
Dr. Gan notified of decreased output (currently 50mls in ocampo catheter since 2199). New order rec to begin IVF of NS at 100 mls/hr. also informed of HS medications given 09/25 causing sedation that required O2 at 2L to maintain and oxygenation of greater than 90%. [facility]
[2018-09-26] MEDS ORDERED: NS IV 1000 ML 1,000 ML ONE (04:13)
[2018-09-26] MEDS ORDERED: NS IV 1000 ML 1,000 ML IV SCH (04:15)
[2018-09-26 07:20] LABS: BASOPHILS % (AUTO) 0 % (0-10); EOSINOPHILS % (AUTO) 0 % (0-10); HEMATOCRIT 25 % (35-52); HEMOGLOBIN 8.3 G/DL (11.5-16.0); LYMPHOCYTES # (AUTO) 0.9 X 10^3 (1.0-4.0); LYMPHOCYTES % (AUTO) 4 % (12-44); MEAN CORPUSCULAR HEMOGLOBIN 30 PG (25-34); MEAN CORPUSCULAR HGB CONC 34 G/DL (32-36); MEAN CORPUSCULAR VOLUME 90 FL (80-99); MEAN PLATELET VOLUME 8.2 FL (7.4-10.4); MONOCYTES # (AUTO) 2.3 X 10^3 (0.0-1.0); MONOCYTES % (AUTO) 11 % (0-12); NEUTROPHILS # (AUTO) 17.6 X 10^3 (1.8-7.8); NEUTROPHILS % (AUTO) 85 % (42-75); PLATELET COUNT 416 10^3/uL (130-400); RED BLOOD COUNT 2.77 10^6/uL (4.35-5.85); RED CELL DISTRIBUTION WIDTH 13.2 % (10.0-14.5); WHITE BLOOD COUNT 20.7 10^3/uL (4.3-11.0)
[2018-09-26] MEDS: RT-ADVAIR HFA 115/21 MCG PER PUFF IH SCH ×2 (07:22→18:53)
[2018-09-26 07:41] LABS: ALBUMIN 3.4 GM/DL (3.2-4.5); BILIRUBIN,TOTAL 0.3 MG/DL (0.1-1.0); CALCIUM 8.4 MG/DL (8.5-10.1); CREATININE SERUM 1.24 MG/DL (0.60-1.30); POTASSIUM 3.6 MMOL/L (3.6-5.0); TOTAL PROTEIN 5.8 GM/DL (6.4-8.2)
[2018-09-26 08:00] VITALS: BP 110/52
[2018-09-26] MEDS: GABAPENTIN 300 MG (NEURONTIN) CAP PO SCH ×2 (09:00→21:30)
[2018-09-26] MEDS: CARISOPRODOL 350 MG (SOMA) TAB PO SCH ×2 (09:00→21:31)
--- NOTE | 2018-09-26 09:28 | Progress Note-Hospitalist ---
Subjective HPI/CC On Admission Date Seen by Provider: Sep 26, 2018 Time Seen by Provider: 09:15 CC: s/p uncomplicated spine surgery for kyphosis per Dr. Lee HPI: This is a 62-year-old white female known to me from 2017 extensive spinal surgery requiring extensive and lengthy ICU stay with blood transfusions IV fluids and pressor therapy for hypotension in a clinic patient of Dr. Arzola in the [place], [place] who has a history of long-standing mental illness and difficulty coping with pain and disease, hypertension, hyponatremia and hypothyroidism who is currently in distress due to severe pain and she is in bed facing forward crouched down and crying. Multiple meds have been given. I have restarted all of her home medication especially her mood stabilizers which helped last time once those were able to be restarted. At this current time her sodium level was noted to be 123 placed on fluid restriction of 800 mL a day and we'll restart her sodium tablets since this is a chronic condition of SIADH in addition to maintaining normal saline at 100 mL an hour. Subjective/Events-last exam Having confusion Sodium level is 125 so I assured her fluid restriction is 800cc/day rather than 1500cc/day which is designated on the sign on the door. Daughter at the bedside Holding sedating meds today IRF potential at end of week so may need SB until IRF Pain is controlled OOB in chair Review of Systems General: Fatigue Gastrointestinal: Constipation Musculoskeletal: back pain Neurological: Confusion Objective Exam Vital Signs Vital Signs Date Time Temp Pulse Resp B/P (MAP) Pulse Ox O2 Delivery O2 Flow Rate FiO2 09/26/18 08:00 98.7 107 16 110/52 (71) 100 Nasal Cannula 2.00 Capillary Refill : General Appearance: No Apparent Distress, WD/WN, Chronically ill, Thin Respiratory: Chest Non Tender, Lungs Clear, Normal Breath Sounds, No Accessory Muscle Use, No Respiratory Distress Cardiovascular: Regular Rate, Rhythm, No Edema, No Gallop, No JVD, No Murmur, Normal Peripheral Pulses Neurologic/Psychiatric: Alert, No Motor/Sensory Deficits, Normal Mood/Affect, Disoriented, Other (sedated) Results/Procedures Lab Laboratory Tests 09/26/18 06:50 Patient resulted labs reviewed. Assessment/Plan Assessment and Plan Assess & Plan/Chief Complaint Assessment: s/p kyphosis surgery POD # [address] Lee h/o severe and recurrent nausea and vomiting following surgery usually requiring Scopolamine patch and Zofran RA on biological immunosuppressives Hypothyroidism HTN as out pt HLP Migraines Post op anemia due to acute blood loss h/o self-medicating out of purse with Percocet during last admit Hyponatremia on fluid restriction 800 cc and NS at 100cc/hr since 123 on admit then 128 yesterday now 125 again so continue fluid restriction and NS at 100cc/ hr Hypokalemia hx h/o post op constipation refuses any intervention in the past Mental illness restarted all meds today Extensive spine surgery 2016 w/hypotension and multiple transfusions required along with pressor therapy and lengthy ICU stay Plan: Pain control Maintain fluid restriction to 800 mL Check labs in a.m. Maintain normal saline but decrease to 70 mL/hour but add potassium to liter of fluid Restarted all mood stabilizers but holding due to sedation Diagnosis/Problems Diagnosis/Problems (1) S/P spinal surgery Status: Acute (2) Difficulty coping with pain Status: Acute (3) Hyponatremia Status: Acute (4) Chronic mental illness Status: Chronic (5) Hypertension Status: Chronic Qualifiers: Hypertension type: essential hypertension Qualified Codes: I10 - Essential (primary) hypertension (6) Hypothyroidism Status: Chronic Qualifiers: Hypothyroidism type: acquired Qualified Codes: E03.9 - Hypothyroidism, unspecified (7) Anemia due to blood loss, acute Status: Acute (8) Rheumatoid arthritis Status: Chronic Qualifiers: Rheumatoid arthritis location: unspecified site Rheumatoid factor presence : unspecified presence Qualified Codes: M06.9 - Rheumatoid arthritis, unspecified (9) Delirium Status: Acute HAN LOPEZ DO Sep 26, 2018 09:28
--- NOTE | 2018-09-26 10:27 | Physical Therapy Daily Note ---
PT Daily Note-Current Subjective Patient is very lethargic and difficult to rouse. RN and physician are aware. Family present. Both agree to PT. Pain Numeric Pain Scale: 10-Worst Possible Pain Location: Medial, Upper Location Body Site: Back Pain Description: Acute Mental Status Patient Orientation: Listless Attachments: Oxygen, Bell Catheter, IV Transfers Therapy Code Descriptions/Definitions Functional [place] Measure: 0=Not Assessed/NA 4=Minimal Assistance 1=Total Assistance 5=Supervision or Setup 2=Maximal Assistance 6=Modified [place] 3=Moderate Assistance 7=Complete [place] Therapy Quality Codes: 6 Independent with activity with or without an assistive device 5 Patient requires set up or clean up by helper. Patient completes activity by themselves 4 Supervision or touching assist (CGA). [place] provide cues , steadying assist 3 The helper provides less than half the effort to complete the activity 2 The helper provides more than half the effort to complete the activity 1 Dependent. The helper does all the effort to complete an activity 7 Patient refused to complete or attempt activity 9 The patient did not perform the activity before the current illness or injury 88 Not attempted due to Medical conditions or safety concerns Transfers (B, C, W/C) (FIM): 1 Scootin Rollin Supine to/from Sit: 1 Sit to/from Stand: 1 Bed to/from Chair: 1 patient and PT performed sit to stand x 5 sets with patient having difficulty with bilateral LE proprioception and strength. Patient SPT to chair and was unable to take steps with PT. Weight Bearing Right Lower Extremity: Right Full Weight Bearing Left Lower Extremity: Left Full Weight Bearing Exercises Supine Ex: Ankle pumps, Quad Set Supine Reps: 15 Seated Therapy Exercises: Ankle pumps, Long arc quads Seated Reps: 15 Assessment Patient requires redirection to remain awake to actively participate with therapy. PT to increase activity as tolerated by patient. She currently is unable to tolerate intensive therapies. PT Machine Joint Cutter Goals Longterm Goals PT Machine Joint Cutter Goals Time Frame: Sep 28, 2018 Transfers (B,C,W/C) (FIM): 6 Gait (FIM): 6 Gait distance (FIM): 3=150 ft Distance: 150 Gait Level of Assist: 6 Gait Assistive Device: FWW PT Plan Treatment/Plan Treatment Plan: Continue Plan of Care Treatment Plan: Bed Mobility, Education, Gait, Safety, Transfers Treatment Duration: Oct 15, 2018 Frequency: 6 times per week Estimated Hrs Per Day: .25 hour per day Patient and/or Family Agrees t: Yes Time/GCodes Time In: 815 Time Out: 838 Total Billed Treatment Time: 23 Total Billed Treatment 1 visit FA x 2 23 min LAUREANO KWON PT Sep 26, 2018 10:27
--- NOTE | 2018-09-26 10:39 | NUR ---
RENAL DOSED FAMOTIDINE TO 20MG PO DAILY DUE TO ESTIMATED CRCL LESS THAN 50
[2018-09-26] MEDS: POTASSIUM CHLORIDE INJ 10 MEQ in NS IV 1000 ML 1,000 ML IV SCH (10:55)
[2018-09-26] MEDS: MONTELUKAST 10 MG (SINGULAIR) TAB PO SCH (11:18)
[2018-09-26] MEDS: DOCUSATE SODIUM 100 MG (COLACE) CAP PO SCH ×2 (11:18→21:30)
[2018-09-26] MEDS: LEVOTHYROXINE 125 MCG (LEVOTHROID) TABLET PO SCH (11:18)
[2018-09-26] MEDS: SENNOSIDES 8.6 MG (SENOKOT) TAB PO SCH ×2 (11:18→21:30)
[2018-09-26] MEDS: MULTIVIT W/MINERALS TAB (THERAGRAN M) PO SCH (11:18)
[2018-09-26] MEDS: DILTIAZEM 60 MG (CARDIZEM) TAB PO SCH ×2 (11:18→21:31)
[2018-09-26] MEDS: RAMIPRIL 5 MG (ALTACE) CAP PO SCH ×2 (11:19→21:31)
[2018-09-26] MEDS: PANTOPRAZOLE 40 MG (PROTONIX) TAB PO SCH (11:19)
[2018-09-26] MEDS: LUBIPROSTONE 8 MCG (AMITIZA) CAPSULE NON-FORMULARY PO SCH ×2 (11:22→21:30)
[2018-09-26] MEDS: FLUTICASONE NASAL SPRAY (FLONASE) 16 GM BTL NS SCH ×2 (11:23→21:30)
[2018-09-26] MEDS: oxyCODONE ER 40 MG (oxyCONTIN CR) TAB PO SCH ×3 (11:33→21:30)
[2018-09-26] MEDS: buPROPion SR 150 MG (WELLBUTRIN SR) TAB PO SCH ×2 (11:36→21:30)
[2018-09-26] MEDS: SODIUM CHLORIDE 1 GM TAB (NON-FORMULARY) PO SCH ×2 (11:40→21:31)
[2018-09-26] MEDS ORDERED: SCOPOLAMINE PATCH REMOVAL TP SCH (11:59)
[2018-09-26] MEDS: oxyCODONE/APAP 10/325MG (PERCOCET 10) TABLET PO PRN (13:52)
[2018-09-26] MEDS: fentaNYL INJECTION 100 MCG/2 ML AMP IVP PRN ×4 (14:13→18:10)
--- NOTE | 2018-09-26 14:15 | Occupational Therapy Eval ---
OT Evaluation-General/PLF Medical Diagnosis Admission Date Sep 23, 2018 at 10:07 Medical Diagnosis: thoracic kyphosis Onset Date: Sep 23, 2018 Therapy Diagnosis Therapy Diagnosis: Weakness Height/Weight Height (Feet): 5 Height (Inches): 0.00 Weight (Pounds): 113 Weight (Ounces): 0.0 Precautions Precautions/Isolations: Fall Prevention, Standard Precautions, Pressure Ulcer Safety Interventions: None, Bed Exit Alarm Referral Physician: Jhonathan Lee Referral Reason: Activity Tolerance, Self Care, Evaluation/Treatment, Strengthening/ROM Medical History Pertinent Medical History: GERD, Hypothroidism, Rheumatoid Arthritis Additional Medical History PROXIMAL JUNCTIONAL kYPHOSIS, Hyponatremia, Hx of Low Sodium , Chr mental illness. Current History Cervical thru [employer] Repair/ Replacement, ( Fusion T4-T9 ) Reviewed History: Yes Social History Home: Single Level Current Living Status: Alone Entry Into Home: Level Entry Pt was living at house Independently in all ADLs & ambulation . Her last year. ADL-Prior Level of Function Therapy Code Descriptions/Definitions Functional [place] Measure: 0=Not Assessed/NA 4=Minimal Assistance 1=Total Assistance 5=Supervision or Setup 2=Maximal Assistance 6=Modified [place] 3=Moderate Assistance 7=Complete [place] Therapy Quality Codes: 6 Independent with activity with or without an assistive device 5 Patient requires set up or clean up by helper. Patient completes activity by themselves 4 Supervision or touching assist (CGA). [place] provide cues , steadying assist 3 The helper provides less than half the effort to complete the activity 2 The helper provides more than half the effort to complete the activity 1 Dependent. The helper does all the effort to complete an activity 7 Patient refused to complete or attempt activity 9 The patient did not perform the activity before the current illness or injury 88 Not attempted due to Medical conditions or safety concerns Functional Abilities and Goals: Independent: Patient completed the activities by him/herself, with or without an assistive device, with no assistance from a helper. Needed Some Help: Patient needed partial assistance from another person to complete activities. Dependent: A helper completed the activities for the patient. Unknown: Not Applicable: ADL PLOF Comments Patient was living alone at house & was Independent in all self care tasks & ambulation . Self Care: Independent Functional Cognition: Independent Drive Self: Yes OT Current Status Subjective Pt was very uncomfortable in bed when I asked her how are you doing Lor . Pt's daughter was seated with her & explained me Pt's Medical History. Pain Numeric Pain Scale: 8 Location: Joint, Proximal, Distal Location Body Site: Back Pain Description: Sharp Mental Status/Objective Patient Orientation: Person, Normal For Age Attachments: Bell Catheter, IV, Oxygen Current Glasses/Contacts: Yes Upper Extremity ROM WFL Upper Extremity Coordination Intact Upper Extremity Sensation Intact Upper Extremity Strength MS BUE -4/5 grossaly graded . ADL-Treatment ADL-Current Completed initial OT Eval & established POC. Pt needs max A in all self care tasks due to severe pain in spinal region , unsteady sitting balance, very weak , poor endurance, Mod-max A in supine to sit in bed Therapy Code Descriptions/Definitions Functional [place] Measure: 0=Not Assessed/NA 4=Minimal Assistance 1=Total Assistance 5=Supervision or Setup 2=Maximal Assistance 6=Modified [place] 3=Moderate Assistance 7=Complete [place] Therapy Quality Codes: 6 Independent with activity with or without an assistive device 5 Patient requires set up or clean up by helper. Patient completes activity by themselves 4 Supervision or touching assist (CGA). [place] provide cues , steadying assist 3 The helper provides less than half the effort to complete the activity 2 The helper provides more than half the effort to complete the activity 1 Dependent. The helper does all the effort to complete an activity 7 Patient refused to complete or attempt activity 9 The patient did not perform the activity before the current illness or injury 88 Not attempted due to Medical conditions or safety concerns Eating (FIM): 6 Grooming (FIM): 4 Bathing (FIM): 0 Upper Body Dressing (FIM): 4 Lower Body Dressing (FIM): 2 Transfers (B, C, W/C) (FIM): 2 Toilet/Commode Transfer (FIM): 2 Tub Transfer (FIM): 0 Education OT Patient Education: Correct positioning, Instructions to caregiver, Safety issues Teaching Recipient: Patient, Family Teaching Methods: Demonstration, Discussion Response to Teaching: Verbalize Understanding, Return Demonstration OT Short Term Goals Short Term Goals Time Frame: Oct 10, 2018 Eating(FIM): 7 Grooming(FIM): 6 Upper Body Dressing(FIM): 4 Lower Body Dressing(FIM): 3 Transfers (B,C,W/C) (FIM): 3 Additional Short Term Goals: 1-Demonstrate ADL Tasks, 2-Verbalize Understanding , 3-ImproveStrength/[place] 1=Demonstrate adherence to instructed precautions during ADL tasks. 2=Patient will verbalize/demonstrate understanding of assistive devices/ modifications for ADL. 3=Patient will improve strength/tolerance for activity to enable patient to perform ADL's. OT Usp Goals De Ionizer Operator Goals Time Frame: Oct 24, 2018 Eating (FIM): 7 Grooming(FIM): 7 Bathing(FIM): 4 Bathing Location: L Arm, R Arm, L Upper Leg, R Upper Leg, L Lower Leg ( including foot), R Lower Leg (including foot), Chest, Abdomen, Buttocks, Perineal Area Upper Body Dressing(FIM): 6 Lower Body Dressing(FIM): 5 Toileting(FIM): 5 Transfers (B,C,W/C) (FIM): 5 Toilet/Commode Transfer(FIM): 5 Shower Transfer(FIM): 5 Additional Goals: 1-Demonstrate ADL Tasks, 2-Verbalize Understanding, 3- ImproveStrength/[place] 1=Demonstrate adherence to instructed precautions during ADL tasks. 2=Patient will verbalize/demonstrate understanding of assistive devices/ modifications for ADL. 3=Patient will improve strength/tolerance for activity to enable patient to perform ADL's. OT Education/Plan Problem List/Assessment Assessment: Decreased Activ Tolerance, Decreased Safety Aware, Decreased UE Strength, Dependent Transfers, Impaired Bed Mobility, Impaired Cognition, Impaired Funct Balance, Impaired Self-Care Skills Discharge Recommendations Plan/Recommendations: Continue POC Therapy D/C Recommendations: Home w/ Family Support, Occupational Therapy Home Care Equpiment Recommendations-D/C: Extended Shower Sprayer, Filter Machine Operator, [place] Barriers to Progress Avoid Push,pull, lift ,twist , follow all spinal precautions. Patient/Family Goals To return home Independently with AD & with safety awareness. Treatment Plan/Plan of Care Treatment,Training & Education: Yes Patient would benefit from OT for education, treatment and training to promote independence in ADL's, mobility, safety and/or upper extremity function for ADL' s. Plan of Care: ADL Retraining, Caregiver Training, Functional Mobility, UE Funct Exercise/Act Treatment Duration: Oct 24, 2018 Frequency: 5 times per week Estimated Hrs Per Day: .25 hour per day Agreement: Yes Rehab Potential: Fair Time/GCodes Start Time: 13:00 Stop Time: 13:45 Total Time Billed (hr/min): 45 Billed Treatment Time 1, EVM 30 & Ex x 15 Total minuted 45 LESVIA ORDOÑEZ OT Sep 26, 2018 14:15
--- NOTE | 2018-09-26 16:19 | Physical Therapy Daily Note ---
PT Daily Note-Current Subjective Upon entering 1st attempt pt. sleeping hard with daughter at bedside. Daughter states her Mother just got some relief from some pain meds and requests this FURNITURE SERVICER return a little later. This was done approx 30 min later. Pt. still groggy and cries and c/o pain in back as well as wanting a drink of water very badly. Pt. states she just prays to and is very resistant to getting up or out of bed etc. This FURNITURE SERVICER encouraged pt. to participate and educated her about the risks of being sedentary after surgery. Daughter asks to speak with this FURNITURE SERVICER after Rx, in hoang daughter very emotional and states she is very concerned about the outcome for her Mother. Feels she is not responding functionally like she has after prior surgeries and is worried about the future. Also very concerned about her Moms pain level and dispondent attitude Pain Numeric Pain Scale: 9 Location: Medial Location Body Site: Back Pain Description: Pressure, Stabbing Mental Status Patient Orientation: Confused Attachments: SCD's Transfers Therapy Code Descriptions/Definitions Functional [place] Measure: 0=Not Assessed/NA 4=Minimal Assistance 1=Total Assistance 5=Supervision or Setup 2=Maximal Assistance 6=Modified [place] 3=Moderate Assistance 7=Complete [place] Therapy Quality Codes: 6 Independent with activity with or without an assistive device 5 Patient requires set up or clean up by helper. Patient completes activity by themselves 4 Supervision or touching assist (CGA). [place] provide cues , steadying assist 3 The helper provides less than half the effort to complete the activity 2 The helper provides more than half the effort to complete the activity 1 Dependent. The helper does all the effort to complete an activity 7 Patient refused to complete or attempt activity 9 The patient did not perform the activity before the current illness or injury 88 Not attempted due to Medical conditions or safety concerns rolling required mod assist, side to sit required mod assist, sitting min assist to CGA, sit to stand x 4 required mod assist. sit to side to supine required mod assist. Pt. lurching and crying more, c/o she has no strength in her LEs Weight Bearing Right Lower Extremity: Right Full Weight Bearing Left Lower Extremity: Left Full Weight Bearing Gait Training side steps and a few steps forward and back with Mod assist in dance fashion, pt. hanging heavy on this FURNITURE SERVICER Exercises Supine Ex: Ankle pumps, Heel Slides, Hip abd/add Supine Reps: 10 Assessment Current Status: Fair Progress pain and confusion ( likely her mental illness which she apparently isnt getting her meds for presently) greatly limit function and cognition PT Short Term Goals Short Term Goals Transfers (B,C,W/C) (FIM): 3 PT Psychotherapist Goals Psychotherapist Goals PT Psychotherapist Goals Time Frame: Sep 28, 2018 Transfers (B,C,W/C) (FIM): 6 Gait (FIM): 6 Gait distance (FIM): 3=150 ft Distance: 150 Gait Level of Assist: 6 Gait Assistive Device: FWW PT Plan Treatment/Plan Treatment Plan: Continue Plan of Care Treatment Plan: Bed Mobility, Education, Gait, Safety, Transfers Treatment Duration: Oct 15, 2018 Frequency: 6 times per week Estimated Hrs Per Day: .25 hour per day Patient and/or Family Agrees t: Yes Safety Risks/Education Patient Education: Transfer Techniques, Correct Positioning, Disease Process, Safety Issues Teaching Recipient: Patient Teaching Methods: Demonstration, Discussion Response to Teaching: Verbalize Understanding, Return Demonstration, Reinforcement Needed Time/GCodes Time In: 1535 Time Out: 1600 Total Billed Treatment Time: 40 Total Billed Treatment 1,FA25 G Codes Necessary: EASTON Rodas FURNITURE SERVICER Sep 26, 2018 16:19
--- NOTE | 2018-09-26 17:16 | Progress Note (SOAP) ---
Subjective Date Seen by a Provider: Sep 26, 2018 Time Seen by a Provider: 07:45 Subjective/Events-last exam patient s/p thoracic osteotomy for kyphosis. DId well last night and her pain is much improved. Dr Gan is managing her hyponatremia with fluid oral fluid restriction and PO fluids. Review of Systems General: No Chills Pulmonary: No Dyspnea Cardiovascular: No: Chest Pain Gastrointestinal: No: Nausea, Vomiting Musculoskeletal: back pain Neurological: Numbness; No: Weakness, Change in speech, Confusion Objective Exam Vital Signs Date Time Temp Pulse Resp B/P (MAP) Pulse Ox O2 Delivery O2 Flow Rate FiO2 09/26/18 08:00 98.7 107 16 110/52 (71) 100 Nasal Cannula 2.00 09/26/18 07:22 96 Nasal Cannula 2.00 09/26/18 03:47 99.1 97 16 107/54 (71) 99 Nasal Cannula 2.00 09/25/18 23:55 98.7 99 16 98/49 (65) 97 Nasal Cannula 2.00 09/25/18 23:30 Nasal Cannula 2.00 09/25/18 20:15 95 Room Air I & O 09/26/18 07:00 Intake Total 500 ml Output Total 1160 ml Balance -660 ml Capillary Refill : General Appearance: No Apparent Distress, WD/WN Neck: Other (posterior neck pain) Respiratory: No Accessory Muscle Use, No Respiratory Distress Extremity: Normal Inspection, Non Tender, No Calf Tenderness Neurologic/Psychiatric: Alert, Oriented x3, No Motor/Sensory Deficits Results Lab Laboratory Tests 09/26/18 06:50: White Blood Count 20.7H, Red Blood Count 2.77L, Hemoglobin 8.3#L, Hematocrit 25L , Mean Corpuscular Volume 90, Mean Corpuscular Hemoglobin 30, Mean Corpuscular Hemoglobin Concent 34, Red Cell Distribution Width 13.2, Platelet Count 416H, Mean Platelet Volume 8.2, Neutrophils (%) (Auto) 85H, Lymphocytes (%) (Auto) 4L , Monocytes (%) (Auto) 11, Eosinophils (%) (Auto) 0, Basophils (%) (Auto) 0, Neutrophils # (Auto) 17.6H, Lymphocytes # (Auto) 0.9L, Monocytes # (Auto) 2.3H, Eosinophils # (Auto) 0.0, Basophils # (Auto) 0.0, Sodium Level 125*L, Potassium Level 3.6, Chloride Level 94L, Carbon Dioxide Level 22, Anion Gap 9, Blood Urea Nitrogen 14, Creatinine 1.24, Estimat Glomerular Filtration Rate 44, BUN/ Creatinine Ratio 11, Glucose Level 96, Calcium Level 8.4L, Corrected Calcium 8.9 , Total Bilirubin 0.3, Aspartate Amino Transf (AST/SGOT) 48H, Alanine Aminotransferase (ALT/SGPT) 20, Alkaline Phosphatase 68, Total Protein 5.8L, Albumin 3.4, Smear Scan Assessment/Plan Assessment/Plan Assess & Plan/Chief Complaint s/p thoracic osteotomy and deformity correction hyponatremia secondary siadh plan: continue current medical plan per dr gan d/c drain oob with therapy pain control LILLY VELAZQUEZ Sep 26, 2018 17:16
[2018-09-26 18:07] VITALS: BP 139/72
[2018-09-26] MEDS: SIMvastatin 20 MG (ZOCOR) TAB PO SCH (21:30)
[2018-09-26] MEDS: FAMOTIDINE 20 MG (PEPCID) TABLET PO SCH (21:30)
[2018-09-26] MEDS: clonazePAM 1 MG (KlonoPIN) TAB PO SCH (21:31)
[2018-09-26] MEDS: AMITRIPTYLINE 10 MG (ELAVIL) TAB PO SCH (21:31)
[2018-09-27] VITALS: BP 114/68
[2018-09-27] MEDS: POTASSIUM CHLORIDE INJ 10 MEQ in NS IV 1000 ML 1,000 ML IV SCH (01:22)
[2018-09-27 03:47] VITALS: BP 119/59
[2018-09-27] MEDS: PANTOPRAZOLE 40 MG (PROTONIX) TAB PO SCH (06:07)
[2018-09-27] MEDS: MULTIVIT W/MINERALS TAB (THERAGRAN M) PO SCH (06:07)
[2018-09-27] MEDS: LEVOTHYROXINE 125 MCG (LEVOTHROID) TABLET PO SCH (06:08)
[2018-09-27 06:41] LABS: BASOPHILS % (AUTO) 0 % (0-10); EOSINOPHILS % (AUTO) 0 % (0-10); HEMATOCRIT 24 % (35-52); HEMOGLOBIN 8.1 G/DL (11.5-16.0); LYMPHOCYTES # (AUTO) 1.2 X 10^3 (1.0-4.0); LYMPHOCYTES % (AUTO) 10 % (12-44); MEAN CORPUSCULAR HEMOGLOBIN 30 PG (25-34); MEAN CORPUSCULAR HGB CONC 34 G/DL (32-36); MEAN CORPUSCULAR VOLUME 89 FL (80-99); MEAN PLATELET VOLUME 7.9 FL (7.4-10.4); MONOCYTES # (AUTO) 1.3 X 10^3 (0.0-1.0); MONOCYTES % (AUTO) 10 % (0-12); NEUTROPHILS # (AUTO) 9.9 X 10^3 (1.8-7.8); NEUTROPHILS % (AUTO) 80 % (42-75); PLATELET COUNT 428 10^3/uL (130-400); RED BLOOD COUNT 2.72 10^6/uL (4.35-5.85); RED CELL DISTRIBUTION WIDTH 13.1 % (10.0-14.5); WHITE BLOOD COUNT 12.5 10^3/uL (4.3-11.0)
[2018-09-27 07:08] LABS: ALANINE AMINOTRANSFERASE 35 U/L (0-55); ALBUMIN 3.3 GM/DL (3.2-4.5); ALKALINE PHOSPHATASE 73 U/L (40-136); BILIRUBIN,TOTAL 0.3 MG/DL (0.1-1.0); BUN/CREATININE RATIO 13; CALCIUM 8.4 MG/DL (8.5-10.1); CARBON DIOXIDE 25 MMOL/L (21-32); CHLORIDE 99 MMOL/L (98-107); GFR ESTIMATED > 60; GLUCOSE 105 MG/DL (70-105); POTASSIUM 3.1 MMOL/L (3.6-5.0); SODIUM 133 MMOL/L (135-145); TOTAL PROTEIN 5.2 GM/DL (6.4-8.2)
[2018-09-27 08:00] VITALS: BP 109/59
[2018-09-27] MEDS: SODIUM CHLORIDE 1 GM TAB (NON-FORMULARY) PO SCH ×2 (08:23→20:23)
[2018-09-27] MEDS: FLUTICASONE NASAL SPRAY (FLONASE) 16 GM BTL NS SCH ×2 (08:23→21:00)
[2018-09-27] MEDS: LUBIPROSTONE 8 MCG (AMITIZA) CAPSULE NON-FORMULARY PO SCH ×2 (08:23→20:23)
[2018-09-27] MEDS: GABAPENTIN 300 MG (NEURONTIN) CAP PO SCH ×2 (08:24→20:24)
[2018-09-27] MEDS: DOCUSATE SODIUM 100 MG (COLACE) CAP PO SCH ×2 (08:24→20:24)
[2018-09-27] MEDS: CARISOPRODOL 350 MG (SOMA) TAB PO SCH (08:24)
[2018-09-27] MEDS: SENNOSIDES 8.6 MG (SENOKOT) TAB PO SCH ×2 (08:24→20:24)
[2018-09-27] MEDS: oxyCODONE ER 40 MG (oxyCONTIN CR) TAB PO SCH ×2 (08:24→12:57)
[2018-09-27] MEDS: MONTELUKAST 10 MG (SINGULAIR) TAB PO SCH (08:24)
[2018-09-27] MEDS: RAMIPRIL 5 MG (ALTACE) CAP PO SCH ×2 (08:24→20:24)
[2018-09-27] MEDS: RT-ADVAIR HFA 115/21 MCG PER PUFF IH SCH ×2 (08:26→19:13)
[2018-09-27] MEDS: DILTIAZEM 60 MG (CARDIZEM) TAB PO SCH ×2 (08:30→20:24)
[2018-09-27] MEDS: buPROPion SR 150 MG (WELLBUTRIN SR) TAB PO SCH ×2 (08:30→20:24)
--- NOTE | 2018-09-27 09:15 | Physical Therapy Daily Note ---
PT Daily Note-Current Subjective Pt was in bed with daughter in room and agreed to PT. Pt reports that she wants to get up and walk. Pain Numeric Pain Scale: 0-No Pain Location: No Pain Reported Mental Status Patient Orientation: Person, Listless Attachments: Oxygen, Bell Catheter, IV Transfers Therapy Code Descriptions/Definitions Functional [place] Measure: 0=Not Assessed/NA 4=Minimal Assistance 1=Total Assistance 5=Supervision or Setup 2=Maximal Assistance 6=Modified [place] 3=Moderate Assistance 7=Complete [place] Therapy Quality Codes: 6 Independent with activity with or without an assistive device 5 Patient requires set up or clean up by helper. Patient completes activity by themselves 4 Supervision or touching assist (CGA). [place] provide cues , steadying assist 3 The helper provides less than half the effort to complete the activity 2 The helper provides more than half the effort to complete the activity 1 Dependent. The helper does all the effort to complete an activity 7 Patient refused to complete or attempt activity 9 The patient did not perform the activity before the current illness or injury 88 Not attempted due to Medical conditions or safety concerns Transfers (B, C, W/C) (FIM): 2 Scootin Supine to/from Sit: 5 Sit to/from Stand: 2 Bed to/from Chair: 2 Patient has poor balance and forward lean in stand with FWW and is unable to stand erect without max assist x 2 Weight Bearing Right Lower Extremity: Right Full Weight Bearing Left Lower Extremity: Left Full Weight Bearing Gait Training Gait (FIM): 1 Distance (FIM): 1=up to 49 ft Distance: 15' Gait Level of Assist: 3 Gait Persons Needed: 2 Gait Assistive Device: FWW Pt requires manual cues and blocking with FWW. Pt proprioception is very diminished and needs verbal cues on foot placement and posture. Noted forward lean due to diminished proprioception. Exercises Seated Therapy Exercises: Ankle pumps, Long arc quads, Hip flexion Seated Reps: 5 Assessment Current Status: Fair Progress Pt was able to get to EOB with SBA. Pt is very impulsive and lacks proprioception. Pt does not follow safety cues from PT. Pt attempted to stand from EOB and PT and SPT had to hold her up due to pt not able to have a good base of support. Pt was set back EOB and attempted sit<>stand with proper foot placement. Pt was able to amb 15' with FWW with a turn with max A x2 and constant cues to location of pt feet. Pt is now in recliner with all needs met and daughter in room. PT communicated with pt and daughter about possible options for next placement and relayed it to social work and physician. PT Short Term Goals Short Term Goals Transfers (B,C,W/C) (FIM): 3 PT Room Cleaner Goals Room Cleaner Goals PT Room Cleaner Goals Time Frame: Sep 28, 2018 Transfers (B,C,W/C) (FIM): 6 Gait (FIM): 6 Gait distance (FIM): 3=150 ft Distance: 150 Gait Level of Assist: 6 Gait Assistive Device: FWW PT Plan Problem List Problem List: Activity Tolerance, Functional Strength, Safety, Balance, Gait, Transfer, Bed Mobility, ROM Treatment/Plan Treatment Plan: Continue Plan of Care Treatment Plan: Bed Mobility, Education, Gait, Safety, Transfers Treatment Duration: Oct 15, 2018 Frequency: 6 times per week Estimated Hrs Per Day: .25 hour per day Patient and/or Family Agrees t: Yes Safety Risks/Education Patient Education: Gait Training, Steps, Correct Positioning Teaching Recipient: Patient, Family Teaching Methods: Demonstration, Discussion Response to Teaching: Verbalize Understanding, Reinforcement Needed Time/GCodes Time In: 824 Time Out: 847 Total Billed Treatment Time: 23 Total Billed Treatment 1 visit Gt x2 23 min LAUREANO KWON PT Sep 27, 2018 09:15
--- NOTE | 2018-09-27 09:32 | Progress Note-Hospitalist ---
HAN LOPEZ 09/27/18 0932: Subjective HPI/CC On Admission Date Seen by Provider: Sep 27, 2018 Time Seen by Provider: 09:15 CC: s/p uncomplicated spine surgery for kyphosis per Dr. Lee HPI: This is a 62-year-old white female known to me from 2017 extensive spinal surgery requiring extensive and lengthy ICU stay with blood transfusions IV fluids and pressor therapy for hypotension in a clinic patient of Dr. Arzola in the [place], [place] who has a history of long-standing mental illness and difficulty coping with pain and disease, hypertension, hyponatremia and hypothyroidism who is currently in distress due to severe pain and she is in bed facing forward crouched down and crying. Multiple meds have been given. I have restarted all of her home medication especially her mood stabilizers which helped last time once those were able to be restarted. At this current time her sodium level was noted to be 123 placed on fluid restriction of 800 mL a day and we'll restart her sodium tablets since this is a chronic condition of SIADH in addition to maintaining normal saline at 100 mL an hour. Subjective/Events-last exam Patient doing much better Upright in the chair today Daughter at the bedside Delirium resolved Hyponatremia is now almost resolved at 133 helped with fluid restriction Will increase fluids to 1000 mL a day and allow milkshakes as needed Rest of labs look fine Review of Systems Gastrointestinal: Constipation Musculoskeletal: back pain Neurological: Confusion Objective Exam Vital Signs Vital Signs Date Time Temp Pulse Resp B/P (MAP) Pulse Ox O2 Delivery O2 Flow Rate FiO2 09/27/18 08:26 Room Air 2.00 09/27/18 08:00 98.3 91 16 109/59 (76) 97 Capillary Refill : General Appearance: No Apparent Distress, WD/WN, Chronically ill, Thin Respiratory: Chest Non Tender, Lungs Clear, Normal Breath Sounds, No Accessory Muscle Use, No Respiratory Distress Cardiovascular: Regular Rate, Rhythm, No Edema, No Gallop, No JVD, No Murmur, Normal Peripheral Pulses Back: Decreased Range of Motion Results/Procedures Lab Laboratory Tests 09/27/18 06:11 Patient resulted labs reviewed. Assessment/Plan Assessment and Plan Assess & Plan/Chief Complaint Assessment: s/p kyphosis surgery POD # [address] Lee h/o severe and recurrent nausea and vomiting following surgery usually requiring Scopolamine patch and Zofran RA on biological immunosuppressives Hypothyroidism HTN as out pt HLP Migraines Post op anemia due to acute blood loss h/o self-medicating out of purse with Percocet during last admit Hyponatremia on fluid restriction 800 cc and NS at 100cc/hr since 123 on admit then 128 yesterday now 125 again so continue fluid restriction and NS at 100cc/ hr so now we'll Hep-Lock fluids and increase fluids to 1000 mL per day with milkshakes Hypokalemia hx h/o post op constipation refuses any intervention in the past Mental illness restarted all meds today Extensive spine surgery 2017 w/hypotension and multiple transfusions required along with pressor therapy and lengthy ICU stay Plan: Pain control Maintain fluid restriction but increase 1000 mL Check labs in a.m. HLIVF Restarted all mood stabilizers but holding due to sedation Diagnosis/Problems Diagnosis/Problems (1) S/P spinal surgery Status: Acute (2) Difficulty coping with pain Status: Acute (3) Hyponatremia Status: Acute (4) Chronic mental illness Status: Chronic (5) Hypertension Status: Chronic Qualifiers: Hypertension type: essential hypertension Qualified Codes: I10 - Essential (primary) hypertension (6) Hypothyroidism Status: Chronic Qualifiers: Hypothyroidism type: acquired Qualified Codes: E03.9 - Hypothyroidism, unspecified (7) Anemia due to blood loss, acute Status: Acute (8) Rheumatoid arthritis Status: Chronic Qualifiers: Rheumatoid arthritis location: unspecified site Rheumatoid factor presence : unspecified presence Qualified Codes: M06.9 - Rheumatoid arthritis, unspecified (9) Delirium Status: Acute FOZIA DOWNS MEDICAL STUDENT 09/27/18 1034: Subjective Subjective/Events-last exam Pt feeling better today pt awake and oriented, sitting up in chair today Pt asking if she can have increased amount of fluids today Objective Exam General Appearance: No Apparent Distress, WD/WN HEENT: PERRL/EOMI Respiratory: Lungs Clear Cardiovascular: Regular Rate, Rhythm Neurologic/Psychiatric: Alert, Oriented x3 Assessment/Plan Assessment and Plan Assess & Plan/Chief Complaint Assessment: s/p kyphosis surgery POD # [address] Lee h/o severe and recurrent nausea and vomiting following surgery usually requiring Scopolamine patch and Zofran RA on biological immunosuppressives Hypothyroidism history of HTN history of Migraines Post op anemia due to acute blood loss Hyponatremia on fluid restriction 1000ml today, history of Hypokalemia Plan: Pain control Maintain fluid restriction to 1000ml will allow patient shakes as supplementation in addition Check labs in a.m. Restart home medication HAN LOPEZ DO Sep 27, 2018 09:32 FOZIA DOWNS MEDICAL STUDENT Sep 27, 2018 10:34
--- NOTE | 2018-09-27 14:46 | NUR ---
It was mentioned that this patient may need swing bed. I attempted to explore benefit coverage with the patient's insurance [employer], the patient et daughter, our area nursing homes (to see if they had a direct contact for [employer]), et the patient's employer (message left). I have not been able to determine if she has skilled benefits or not. I suspect that she does not have alf home benefits but I can not determine that. She will not be able to access this benefit d/t can not determine that she has this benefit. Addendum: 09/27/18 at 1516 by CHINMAY PAVON RN Care Management nurse Trudy Austin RN called this nurse to notify that she had a contact with [employer] et gave me that information. Contact for [employer] is Daina, phone number . She confirmed that the patient has 100 skilled days per calendar year and there are only 3 in-network facilities listed. I presented this list to the patient et family et they are making a determination on where they would like a referral sent. Updated Dr Gan with my findings.
--- NOTE | 2018-09-27 14:50 | Physical Therapy Daily Note ---
PT Daily Note-Current Subjective Pt was napping in bed but was awaken by knocking. Pt agreed to PT. Mental Status Patient Orientation: Person, Confused, Mumbles Attachments: Oxygen, Bell Catheter, IV Transfers Therapy Code Descriptions/Definitions Functional [place] Measure: 0=Not Assessed/NA 4=Minimal Assistance 1=Total Assistance 5=Supervision or Setup 2=Maximal Assistance 6=Modified [place] 3=Moderate Assistance 7=Complete [place] Therapy Quality Codes: 6 Independent with activity with or without an assistive device 5 Patient requires set up or clean up by helper. Patient completes activity by themselves 4 Supervision or touching assist (CGA). [place] provide cues , steadying assist 3 The helper provides less than half the effort to complete the activity 2 The helper provides more than half the effort to complete the activity 1 Dependent. The helper does all the effort to complete an activity 7 Patient refused to complete or attempt activity 9 The patient did not perform the activity before the current illness or injury 88 Not attempted due to Medical conditions or safety concerns Transfers (B, C, W/C) (FIM): 3 Scootin Supine to/from Sit: 3 Weight Bearing Right Lower Extremity: Right Full Weight Bearing Left Lower Extremity: Left Full Weight Bearing Exercises Seated Therapy Exercises: Ankle pumps, Long arc quads Seated Reps: 10 Assessment Current Status: Poor Progress Pt had a difficult time keeping eyes open during tx. Pt at times mumbles and comes in and out of confusion. Pt and daughter express concern to pts current cognition level. Pt required mod A with maintaining sitting balance and need cues to return to upright sitting posture. Due to pts decreased proprioception pt has difficulty time performing LE seated ex. Pt, daughter, nurse, and PT all discussed cognition possibilities and nurse relayed information to physician. PT Short Term Goals Short Term Goals Transfers (B,C,W/C) (FIM): 3 PT Fci Goals Social Service Technician Goals PT Social Service Technician Goals Time Frame: Sep 28, 2018 Transfers (B,C,W/C) (FIM): 6 Gait (FIM): 6 Gait distance (FIM): 3=150 ft Distance: 150 Gait Level of Assist: 6 Gait Assistive Device: FWW PT Plan Problem List Problem List: Activity Tolerance, Functional Strength, Safety, Balance, Gait, Transfer, Bed Mobility, ROM Treatment/Plan Treatment Plan: Continue Plan of Care Treatment Plan: Bed Mobility, Education, Gait, Safety, Transfers Treatment Duration: Oct 15, 2018 Frequency: 6 times per week Estimated Hrs Per Day: .25 hour per day Patient and/or Family Agrees t: Yes Time/GCodes Time In: 1355 Time Out: 1409 Total Billed Treatment Time: 14 Total Billed Treatment 1 visit FA 14 min LAUREANO KWON PT Sep 27, 2018 14:50
--- NOTE | 2018-09-27 14:55 | Diagnostic Imaging Report ---
PROCEDURE: CT head without contrast. TECHNIQUE: Multiple contiguous axial images were obtained through the brain without the use of intravenous contrast. INDICATION: Sudden onset of confusion. No prior studies are available for comparison. The ventricles and sulci are within normal limits. There is mild periventricular hypodensity noted consistent with changes of chronic microvascular ischemia. No sulcal effacement or midline shift is identified. No acute intra-axial or extra-axial hemorrhage is detected. Cisterns are patent. Visualized paranasal sinuses are clear. IMPRESSION: Changes of chronic microvascular ischemia. No acute intracranial process is detected. Dictated by: Dictated on workstation # [id number]
--- NOTE | 2018-09-27 15:50 | NUR ---
Choice of 3 in-network facilities for correction home presented to patient's daughter Darlin as requested by patient. She has chosen "[facility]" in [place], [place]. Contact made with [phone] et clinical information was faxed to . Await their determination.
--- NOTE | 2018-09-27 15:51 | Occupational Ther Daily Note ---
OT Current Status-Daily Note Subjective Pt states that, " I am OK. I do not have back pain today." Pain Numeric Pain Scale: 0-No Pain Mental Status/Objective Patient Orientation: Person, Place, Time Therapy Code Descriptions/Definitions Functional [place] Measure: 0=Not Assessed/NA 4=Minimal Assistance 1=Total Assistance 5=Supervision or Setup 2=Maximal Assistance 6=Modified [place] 3=Moderate Assistance 7=Complete [place] Attachments: Bell Catheter, IV ADL-Treatment Patient participated in ADL activity, strengthening Ex to BUE to increase strength, endurance & activity tolerance. Patient wipes her face front & back of neck , both arms , fore arms & hands with warm Ready-Bath wipes. Pt performed 30 reps x 2 sets with Hand gripper , 20 reps x 2 sets x 1 lb wts flexion/ extension of both elbows & shoulders. 20 reps x 2 sets with red theraband in all planes of motion. Pt did'nt complaints of back pain today. Eating (FIM): 6 Grooming (FIM): 5 Upper Body (FIM): 3 Lower Body Dressing (FIM): 2 Transfers (B, C, W/C) (FIM): 3 Education OT Patient Education: Correct positioning, Instructions to caregiver, Safety issues Teaching Recipient: Patient, Family Teaching Methods: Demonstration, Discussion Response to Teaching: Verbalize Understanding, Return Demonstration OT Short Term Goals Short Term Goals Time Frame: Oct 10, 2018 Eating(FIM): 7 Grooming(FIM): 6 Upper Body Dressing(FIM): 4 Lower Body Dressing(FIM): 3 Transfers (B,C,W/C) (FIM): 3 Additional Short Term Goals: 1-Demonstrate ADL Tasks, 2-Verbalize Understanding , 3-ImproveStrength/[place] 1=Demonstrate adherence to instructed precautions during ADL tasks. 2=Patient will verbalize/demonstrate understanding of assistive devices/ modifications for ADL. 3=Patient will improve strength/tolerance for activity to enable patient to perform ADL's. OT Penitentiary Goals Penitentiary Goals Time Frame: Oct 24, 2018 Eating (FIM): 7 Grooming(FIM): 7 Bathing(FIM): 4 Bathing Location: L Arm, R Arm, L Upper Leg, R Upper Leg, L Lower Leg ( including foot), R Lower Leg (including foot), Chest, Abdomen, Buttocks, Perineal Area Upper Body Dressing(FIM): 6 Lower Body Dressing(FIM): 5 Toileting(FIM): 5 Transfers (B,C,W/C) (FIM): 5 Toilet/Commode Transfer(FIM): 5 Shower Transfer(FIM): 5 Additional Goals: 1-Demonstrate ADL Tasks, 2-Verbalize Understanding, 3- ImproveStrength/[place] 1=Demonstrate adherence to instructed precautions during ADL tasks. 2=Patient will verbalize/demonstrate understanding of assistive devices/ modifications for ADL. 3=Patient will improve strength/tolerance for activity to enable patient to perform ADL's. OT Education/Plan Problem List/Assessment Assessment: Decreased Activ Tolerance, Decreased Safety Aware, Decreased UE Strength, Dependent Transfers, Impaired Bed Mobility, Impaired Cognition, Impaired Funct Balance, Impaired Self-Care Skills Discharge Recommendations Plan/Recommendations: Continue POC Therapy D/C Recommendations: Home Independently, Occupational Therapy Home Care Equpiment Recommendations-D/C: Bath Chair, Extended Shower Sprayer, Hardboard Press Operator Patient/Family Goals To return home Independently without back pain . Treatment Plan/Plan of Care Treatment,Training & Education: Yes Patient would benefit from OT for education, treatment and training to promote independence in ADL's, mobility, safety and/or upper extremity function for ADL' s. Plan of Care: ADL Retraining, Caregiver Training, Functional Mobility, UE Funct Exercise/Act Treatment Duration: Oct 24, 2018 Frequency: 5 times per week Estimated Hrs Per Day: .25 hour per day Agreement: Yes Rehab Potential: Fair Time/GCodes Start Time: 15:10 Stop Time: 15:30 Total Time Billed (hr/min): 20 Billed Treatment Time 1,ADL X 9 min , Ex 14 min Total 23 minutes. LESVIA ORDOÑEZ OT Sep 27, 2018 15:51
[2018-09-27] MEDS: fentaNYL INJECTION 100 MCG/2 ML AMP IVP PRN (15:52)
[2018-09-27 16:00] VITALS: BP 94/52
[2018-09-27] MEDS: AMITRIPTYLINE 10 MG (ELAVIL) TAB PO SCH (20:13)
[2018-09-27] MEDS: clonazePAM 1 MG (KlonoPIN) TAB PO SCH (20:14)
--- NOTE | 2018-09-27 20:14 | Progress Note (SOAP) ---
Subjective Date Seen by a Provider: Sep 27, 2018 Time Seen by a Provider: 20:08 Subjective/Events-last exam POD #4 Patient sedate at this time. She will awake to answer question She state and her daughter states that she has poor leg strength and control. PT documents poor balance and proprioception, but also confirm sedation Review of Systems General: No Chills, No Night Sweats Gastrointestinal: No: Nausea, Vomiting, Abdominal Pain Musculoskeletal: back pain; No: leg pain Neurological: Numbness, Confusion Objective Exam Vital Signs Date Time Temp Pulse Resp B/P (MAP) Pulse Ox O2 Delivery O2 Flow Rate FiO2 09/27/18 19:13 90 Room Air 09/27/18 08:26 Room Air 2.00 09/27/18 08:00 98.3 91 16 109/59 (76) 97 Room Air 09/27/18 08:00 99 Room Air 2.00 09/27/18 03:47 98.2 93 16 119/59 (79) 99 Room Air 09/27/18 00:00 98.1 98 16 114/68 (83) 97 Room Air I & O 09/27/18 07:00 Intake Total 600 ml Output Total 3400 ml Balance -2800 ml Capillary Refill : General Appearance: No Apparent Distress Respiratory: Normal Breath Sounds, No Respiratory Distress Cardiovascular: No Edema, Normal Peripheral Pulses Gastrointestinal: soft Extremity: Normal Capillary Refill, Normal Inspection, Normal Range of Motion, Non Tender, No Calf Tenderness Neurologic/Psychiatric: Alert, Oriented x3, No Motor/Sensory Deficits, clinical psychologist licensed II- XII Norm as Tested, Depressed Affect Skin: Other (Dressing CDI) Results Lab Laboratory Tests 09/27/18 06:11: White Blood Count 12.5H, Red Blood Count 2.72L, Hemoglobin 8.1L, Hematocrit 24L , Mean Corpuscular Volume 89, Mean Corpuscular Hemoglobin 30, Mean Corpuscular Hemoglobin Concent 34, Red Cell Distribution Width 13.1, Platelet Count 428H, Mean Platelet Volume 7.9, Neutrophils (%) (Auto) 80H, Lymphocytes (%) (Auto) 10L , Monocytes (%) (Auto) 10, Eosinophils (%) (Auto) 0, Basophils (%) (Auto) 0, Neutrophils # (Auto) 9.9H, Lymphocytes # (Auto) 1.2, Monocytes # (Auto) 1.3H, Eosinophils # (Auto) 0.0, Basophils # (Auto) 0.0, Sodium Level 133L, Potassium Level 3.1L, Chloride Level 99, Carbon Dioxide Level 25, Anion Gap 9, Blood Urea Nitrogen 9, Creatinine 0.70, Estimat Glomerular Filtration Rate > 60, BUN/ Creatinine Ratio 13, Glucose Level 105, Calcium Level 8.4L, Corrected Calcium 9.0, Total Bilirubin 0.3, Aspartate Amino Transf (AST/SGOT) 86H, Alanine Aminotransferase (ALT/SGPT) 35, Alkaline Phosphatase 73, Total Protein 5.2L, Albumin 3.3 Assessment/Plan Assessment/Plan Assess & Plan/Chief Complaint Thoracic Kyphosis Sagittal Imbalance Chronic Opioid Use Hyponatremia- improving Patient continues to be very sedate and appears over medicated at this time. Will DC oxycontin and fentanyl at this time. Change soma to prn DC phenergan Send UA Patient has good strength in BLE. Her proprioception and balance are difficult to assess secondary to her sedation MARIA HANNA Sep 27, 2018 20:14
[2018-09-27] MEDS ORDERED: CARISOPRODOL 350 MG (SOMA) TAB PO PRN (20:15)
[2018-09-27] MEDS: SIMvastatin 20 MG (ZOCOR) TAB PO SCH (20:24)
[2018-09-27] MEDS: FAMOTIDINE 20 MG (PEPCID) TABLET PO SCH (20:24)
--- NOTE | 2018-09-27 20:24 | NUR ---
This RN entered the room to give patient her evening meds. Patient is found sleeping in her bed. Patient is awoken by saying her name loudly. Patient is sedated and lacks dexterity to put her pills in her mouth. Patient is complaining of pain at this time but is unable to rate it.
--- NOTE | 2018-09-27 22:53 | NUR ---
This RN called Chepe Krishnan in reference to the patient stating she fell. PCT answered the bed alarm and found the patient next to the bed, feet flat on the floor in a squatting position. Patient states that she fell out of bed but did not hit her head. Patient denies having any unusual pain and denies having pain in the head and neck. Patient denies having any numbness and tingling in her limbs. Patients vitals are heart rate 124, respirations of 22, blood pressure 114/61 and SPO2 of 93% on room air. There is no bleeding noted and surgical dressing is dry and intact. No obvious deformities are noted to the back or limbs. Patient is helped to bed. Patient is audibly sobbing stating that she needs a drink of water. This RN was in the room 5 minutes prior to this incident because patient wanted to speak about more water. PCT had just left the room and walked down the hallway when the bed alarm sounded. No new orders are received, will continue to monitor.
--- NOTE | 2018-09-27 22:58 | NUR ---
supervisor laboratory notified of patients fall.
--- NOTE | 2018-09-27 22:59 | NUR ---
Darlin, the daughter, is notified of patients fall. Addendum: 09/27/18 at 2325 by GENARO REDDY RN Daughter is also advised that the patient is upset about not getting more water. Patient wants her daughter to call her. Daughter was also advised which medications were held, which medications were given and which medications were discontinued. There are no questions at this time.
--- NOTE | 2018-09-27 23:13 | NUR ---
Darlin, patient daughter, called this RN. Darlin states that the patient told her she was trying to get to the bathroom to get a drink of water out of the sink. Darlin asked if there was a way to get the patient a milkshake. This RN states that the kitchen is not open and there is no way to get the patient a milkshake at this time.
[2018-09-28] VITALS: BP 110/60
[2018-09-28 04:09] LABS: BASOPHILS % (AUTO) 0 % (0-10); EOSINOPHILS # (AUTO) 0.1 10^3/uL (0.0-0.3); EOSINOPHILS % (AUTO) 1 % (0-10); HEMATOCRIT 23 % (35-52); HEMOGLOBIN 7.6 G/DL (11.5-16.0); LYMPHOCYTES # (AUTO) 1.2 X 10^3 (1.0-4.0); LYMPHOCYTES % (AUTO) 11 % (12-44); MEAN CORPUSCULAR HEMOGLOBIN 30 PG (25-34); MEAN CORPUSCULAR HGB CONC 34 G/DL (32-36); MEAN CORPUSCULAR VOLUME 90 FL (80-99); MEAN PLATELET VOLUME 7.5 FL (7.4-10.4); MONOCYTES # (AUTO) 1.4 X 10^3 (0.0-1.0); MONOCYTES % (AUTO) 12 % (0-12); NEUTROPHILS # (AUTO) 8.9 X 10^3 (1.8-7.8); NEUTROPHILS % (AUTO) 77 % (42-75); PLATELET COUNT 406 10^3/uL (130-400); RED BLOOD COUNT 2.52 10^6/uL (4.35-5.85); WHITE BLOOD COUNT 11.6 10^3/uL (4.3-11.0)
[2018-09-28 04:38] LABS: ALANINE AMINOTRANSFERASE 40 U/L (0-55); ALBUMIN 3.4 GM/DL (3.2-4.5); ALKALINE PHOSPHATASE 65 U/L (40-136); BILIRUBIN,TOTAL 0.3 MG/DL (0.1-1.0); BUN/CREATININE RATIO 17; CALCIUM 8.7 MG/DL (8.5-10.1); CARBON DIOXIDE 23 MMOL/L (21-32); CHLORIDE 100 MMOL/L (98-107); CREATININE SERUM 0.84 MG/DL (0.60-1.30); GFR ESTIMATED > 60; GLUCOSE 104 MG/DL (70-105); POTASSIUM 3.3 MMOL/L (3.6-5.0); SODIUM 133 MMOL/L (135-145); TOTAL PROTEIN 5.9 GM/DL (6.4-8.2)
[2018-09-28] MEDS: LEVOTHYROXINE 125 MCG (LEVOTHROID) TABLET PO SCH ×2 (05:24→05:28)
[2018-09-28] MEDS: MULTIVIT W/MINERALS TAB (THERAGRAN M) PO SCH ×2 (05:24→05:28)
[2018-09-28] MEDS: PANTOPRAZOLE 40 MG (PROTONIX) TAB PO SCH ×2 (05:25→05:28)
[2018-09-28 08:00] VITALS: BP 146/67
[2018-09-28] MEDS: SODIUM CHLORIDE 1 GM TAB (NON-FORMULARY) PO SCH (08:46)
[2018-09-28] MEDS: MONTELUKAST 10 MG (SINGULAIR) TAB PO SCH (08:46)
[2018-09-28] MEDS: LUBIPROSTONE 8 MCG (AMITIZA) CAPSULE NON-FORMULARY PO SCH (08:46)
[2018-09-28] MEDS: GABAPENTIN 300 MG (NEURONTIN) CAP PO SCH (08:46)
[2018-09-28] MEDS: buPROPion SR 150 MG (WELLBUTRIN SR) TAB PO SCH (08:46)
[2018-09-28] MEDS: SENNOSIDES 8.6 MG (SENOKOT) TAB PO SCH (08:46)
[2018-09-28] MEDS: DOCUSATE SODIUM 100 MG (COLACE) CAP PO SCH (08:46)
[2018-09-28] MEDS: FLUTICASONE NASAL SPRAY (FLONASE) 16 GM BTL NS SCH (08:46)
[2018-09-28] MEDS: RT-ADVAIR HFA 115/21 MCG PER PUFF IH SCH (08:53)
[2018-09-28] MEDS: DILTIAZEM 60 MG (CARDIZEM) TAB PO SCH (08:57)
[2018-09-28] MEDS: oxyCODONE/APAP 10/325MG (PERCOCET 10) TABLET PO PRN ×2 (08:57→15:17)
[2018-09-28] MEDS: RAMIPRIL 5 MG (ALTACE) CAP PO SCH (08:57)
[2018-09-28 10:03] LABS: BILIRUBIN,URINE NEGATIVE (NEGATIVE); CLARITY,URINE CLEAR; COLOR,URINE YELLOW; GLUCOSE, URINE (UA) NEGATIVE (NEGATIVE); KETONES,URINE NEGATIVE (NEGATIVE); LEUKOCYTE ESTERASE ,URINE 2+ (NEGATIVE); NITRITE,URINE NEGATIVE (NEGATIVE); PH,URINE 6.5 (5-9); PROTEIN,URINE NEGATIVE (NEGATIVE); UROBILINOGEN,URINE NORMAL (NORMAL)
--- NOTE | 2018-09-28 10:21 | NUR ---
prior to a.m. medications pulse was 146/67 with a heart rate of 106
--- NOTE | 2018-09-28 10:22 | Discharge Summary-Hospitalist ---
Diagnosis/Chief Complaint Date of Admission Sep 23, 2018 at 10:07 Date of Discharge Discharge Diagnosis (1) S/P spinal surgery Status: Acute (2) Difficulty coping with pain Status: Acute (3) Hyponatremia Status: Acute (4) Chronic mental illness Status: Chronic (5) Hypertension Status: Chronic (6) Hypothyroidism Status: Chronic (7) Anemia due to blood loss, acute Status: Acute (8) Rheumatoid arthritis Status: Chronic (9) Delirium Status: Resolved Discharge Summary Discharge Physical Exam Allergies: Coded Allergies: adalimumab (Verified Allergy, Intermediate, HIVES, 01/18/17) morphine (Verified Allergy, Intermediate, N/V, 01/18/17) Vitals & I&Os Vital Signs Date Time Temp Pulse Resp B/P (MAP) Pulse Ox O2 Delivery O2 Flow Rate FiO2 09/28/18 08:53 94 Room Air 09/28/18 08:00 2.00 09/28/18 08:00 97.4 106 20 146/67 (93) General Appearance: No Apparent Distress, WD/WN, Chronically ill, Thin Respiratory: Chest Non Tender, Lungs Clear, Normal Breath Sounds, No Accessory Muscle Use, No Respiratory Distress Cardiovascular: Regular Rate, Rhythm, No Edema, No Gallop, No JVD, No Murmur, Normal Peripheral Pulses Neurologic/Psychiatric: Alert, Oriented x3, No Motor/Sensory Deficits, Normal Mood/Affect Hospital Course Was the Problem List Reviewed?: Yes Hospital course: Patient a lengthy hospital course. She underwent an extensive spine surgery. Pain was an issue as was her surgery 2 years ago when I cared for her in consultation. Patient had severe hyponatremia which responded to normal saline in addition to free fluid restriction at 800 mL a day. Hemoglobin remained stable. Home meds were restarted but noted overmedicated and sedated causing delirium. Intensive counseling by this provider and spine surgery providers regarding the need to decrease the amount of medication she was on and daughter was in agreement with that. CT scan of the brain was obtained due to severe altered mental status which was negative but required reassurance to the daughter the delirium could very well occur on and off during her recovery. Pain meds were held with good results and clearing of delirium and it appeared that just like last time she may of been taking her home medication pain meds out of her purse when her daughter was out of the room. Regardless hyponatremia improved to 133 fluid restriction was increased 1800 mL more fluid a day and she was deemed stable for discharge to nursing facility. She will be placed on withdrawal regimen in the meantime due to the extensive hx of narc use in the past and will support her minimizing her meds to ultimately improve her recovery potential. No BM noted but she refused any and all meds offered to resolve that issue. Labs (last 24 hrs) Laboratory Tests 09/28/18 04:00: White Blood Count 11.6H, Red Blood Count 2.52L, Hemoglobin 7.6L, Hematocrit 23L , Mean Corpuscular Volume 90, Mean Corpuscular Hemoglobin 30, Mean Corpuscular Hemoglobin Concent 34, Red Cell Distribution Width 13.0, Platelet Count 406H, Mean Platelet Volume 7.5, Neutrophils (%) (Auto) 77H, Lymphocytes (%) (Auto) 11L , Monocytes (%) (Auto) 12, Eosinophils (%) (Auto) 1, Basophils (%) (Auto) 0, Neutrophils # (Auto) 8.9H, Lymphocytes # (Auto) 1.2, Monocytes # (Auto) 1.4H, Eosinophils # (Auto) 0.1, Basophils # (Auto) 0.0, Sodium Level 133L, Potassium Level 3.3L, Chloride Level 100, Carbon Dioxide Level 23, Anion Gap 10, Blood Urea Nitrogen 14, Creatinine 0.84, Estimat Glomerular Filtration Rate > 60, BUN/ Creatinine Ratio 17, Glucose Level 104, Calcium Level 8.7, Corrected Calcium 9.2 , Total Bilirubin 0.3, Aspartate Amino Transf (AST/SGOT) 86H, Alanine Aminotransferase (ALT/SGPT) 40, Alkaline Phosphatase 65, Total Protein 5.9L, Albumin 3.4 09/28/18 09:25: Urine Color YELLOW, Urine Clarity CLEAR, Urine pH 6.5, Urine Specific [place] 1.010L, Urine Protein NEGATIVE, Urine Glucose (UA) NEGATIVE, Urine Ketones NEGATIVE, Urine Nitrite NEGATIVE, Urine Bilirubin NEGATIVE, Urine Urobilinogen NORMAL, Urine Leukocyte Esterase 2+H, Urine RBC (Auto) 1+H, Urine RBC RARE, Urine WBC 25-50H, Urine Squamous Epithelial Cells 2-5, Urine Renal Epithelial Cells 0-2, Urine Crystals NONE, Urine Bacteria TRACE, Urine Casts PRESENT, Urine Hyaline Casts RARE, Urine Granular Casts RARE, Urine Mucus SMALLH, Urine Culture Indicated YES Patient resulted labs reviewed. Pending Labs Laboratory Tests 09/28/18 04:00: White Blood Count 11.6, Red Blood Count 2.52, Hemoglobin 7.6, Hematocrit 23, Mean Corpuscular Volume 90, Mean Corpuscular Hemoglobin 30, Mean Corpuscular Hemoglobin Concent 34, Red Cell Distribution Width 13.0, Platelet Count 406, Mean Platelet Volume 7.5, Neutrophils (%) (Auto) 77, Lymphocytes (%) (Auto) 11, Monocytes (%) (Auto) 12, Eosinophils (%) (Auto) 1, Basophils (%) (Auto) 0, Neutrophils # (Auto) 8.9, Lymphocytes # (Auto) 1.2, Monocytes # (Auto) 1.4, Eosinophils # (Auto) 0.1, Basophils # (Auto) 0.0, Sodium Level 133, Potassium Level 3.3, Chloride Level 100, Carbon Dioxide Level 23, Anion Gap 10, Blood Urea Nitrogen 14, Creatinine 0.84, Estimat Glomerular Filtration Rate > 60, BUN/ Creatinine Ratio 17, Glucose Level 104, Calcium Level 8.7, Corrected Calcium 9.2 , Total Bilirubin 0.3, Aspartate Amino Transf (AST/SGOT) 86, Alanine Aminotransferase (ALT/SGPT) 40, Alkaline Phosphatase 65, Total Protein 5.9, Albumin 3.4 09/28/18 09:25: Urine Color YELLOW, Urine Clarity CLEAR, Urine pH 6.5, Urine Specific [place] 1.010, Urine Protein NEGATIVE, Urine Glucose (UA) NEGATIVE, Urine Ketones NEGATIVE, Urine Nitrite NEGATIVE, Urine Bilirubin NEGATIVE, Urine Urobilinogen NORMAL, Urine Leukocyte Esterase 2+, Urine RBC (Auto) 1+, Urine RBC RARE, Urine WBC 25-50, Urine Squamous Epithelial Cells 2-5, Urine Renal Epithelial Cells 0-2 , Urine Crystals NONE, Urine Bacteria TRACE, Urine Casts PRESENT, Urine Hyaline Casts RARE, Urine Granular Casts RARE, Urine Mucus SMALL, Urine Culture Indicated YES Discussion & Recommendations Discharge Planning: >30 minutes discharge planning Discharge Home Medications: Active Scripts Active Reported Clonazepam 1 Mg Tablet 1 Mg PO HS Imitrex (Sumatriptan Succinate) 50 Mg Tab 50 Mg PO UD PRN Percocet 10-325 mg Tablet (Oxycodone HCl/Acetaminophen) 1 Each Tablet 1 Tab PO Q6H PRN Simvastatin 20 Mg Tablet 20 Mg PO HS Docusate Sodium 100 Mg Capsule 100 Mg PO BID Clonidine HCl 0.1 Mg Tablet 0.1-0.3 Mg PO DAILY PRN Acid [employer] (RANITIDINE) (Ranitidine HCl) 150 Mg Tablet 150 Mg PO BID Proair Hfa (Albuterol Sulfate) 1 Puff Puff 2 Puff IH BID PRN Amitriptyline HCl 10 Mg Tablet 10 Mg PO HS Diltiazem HCl 120 Mg Tablet 120 Mg PO BID Fluticasone Propionate 16 Gm [place].susp 1 [place] NS BID Daily Multiple Vitamin (Multivitamin) 1 Each Tablet 1 Tab PO DAILY Amitiza (Lubiprostone) 24 Mcg Capsule 24 Mcg PO BID Singulair (Montelukast Sodium) 10 Mg Tablet 10 Mg PO DAILY Levothyroxine Sodium 125 Mcg Tablet 62.5 Mcg PO DAILY TAKES 1/2 (125MCG) TABLET Carisoprodol 350 Mg Tablet 350 Mg PO BID Bupropion Xl (Bupropion HCl) 300 Mg Tab.er.24h 300 Mg PO DAILY Sodium Chloride 1,000 Mg Tablet.atul 1,000 Mg PO BID Ramipril 10 Mg Capsule 10 Mg PO BID Breo Ellipta 100-25 Mcg INH (Fluticasone/Vilanterol) 1 Each Blst.w.dev 1 Puff IH DAILY Instructions to patient/family Please see electronic discharge instructions given to patient. Problem Qualifiers (1) Hypertension: Hypertension type: essential hypertension Qualified Codes: I10 - Essential ( primary) hypertension (2) Hypothyroidism: Hypothyroidism type: acquired Qualified Codes: E03.9 - Hypothyroidism, unspecified (3) Rheumatoid arthritis: Rheumatoid arthritis location: unspecified site Rheumatoid factor presence: unspecified presence Qualified Codes: M06.9 - Rheumatoid arthritis, unspecified HAN LOPEZ DO Sep 28, 2018 10:22
[2018-09-28 10:33] LABS: BACTERIA,URINE TRACE /HPF; HYALINE CASTS, URINE RARE /LPF; RBC,URINE RARE /HPF; RENAL EPITHELIAL CELLS,URINE 0-2 /HPF; WBC,URINE 25-50 /HPF
[2018-09-28 10:34] LABS: GRANULAR CASTS,URINE RARE /LPF
[2018-09-28] MEDS ORDERED: SENN-141 PO (11:14)
[2018-09-28] MEDS ORDERED: OXYC1TAB12 PO (11:14)
[2018-09-28] MEDS ORDERED: CLON1TAB13 PO (11:14)
[2018-09-28] MEDS ORDERED: CARI350T27 PO (11:14)
[2018-09-28] MEDS ORDERED: PANT40TA3 PO (11:14)
[2018-09-28] MEDS ORDERED: GABA-488 PO (11:14)
--- NOTE | 2018-09-28 11:18 | Discharge Inst-Skilled Nursing ---
Discharge Inst-Skilled NF Patient Instructions Patient Problems: Extensive spine surgery Bipolar disorder Anemia Chronic pain syndrome Hyponatremia Goal: Return to independent living Consult/Follow Up/Orders Follow Up Appt.: Spine surgery as scheduled Skilled NF Admit to: Certification (SNF) I certify that SNF services are required to be given on an inpatient basis because of the above named patient's need for [facility] care on a continuing basis for the conditions(s) for which he/she was receiving inpatient hospital services prior to his/her transfer to the SNF. Long Term Facility Order: Nursing Services, [facility]-Evaluate & Treat, Physical Therapy-Evaluate & Treat, Wound Care-Eval/Treat Discharge Diet: No Restrictions, Other Diet (fluid restriction 1800cc/day) Daily Activity as Tolerated: Yes New & Resume Previous Orders Claudia Gan Sep 28, 2018 11:17 CLAUDIA GAN DO Sep 28, 2018 11:18
--- NOTE | 2018-09-28 11:21 | Physical Therapy Daily Note ---
PT Daily Note-Current Subjective Pt was up in recliner and agreed to PT. Pt was alert and oriented. Pain Numeric Pain Scale: 5-Moderate Pain Location Body Site: Neck Mental Status Patient Orientation: Person, Place, Situation Transfers Therapy Code Descriptions/Definitions Functional [place] Measure: 0=Not Assessed/NA 4=Minimal Assistance 1=Total Assistance 5=Supervision or Setup 2=Maximal Assistance 6=Modified [place] 3=Moderate Assistance 7=Complete [place] Therapy Quality Codes: 6 Independent with activity with or without an assistive device 5 Patient requires set up or clean up by helper. Patient completes activity by themselves 4 Supervision or touching assist (CGA). [place] provide cues , steadying assist 3 The helper provides less than half the effort to complete the activity 2 The helper provides more than half the effort to complete the activity 1 Dependent. The helper does all the effort to complete an activity 7 Patient refused to complete or attempt activity 9 The patient did not perform the activity before the current illness or injury 88 Not attempted due to Medical conditions or safety concerns Transfers (B, C, W/C) (FIM): 4 Scootin Supine to/from Sit: 4 Sit to/from Stand: 4 Weight Bearing Right Lower Extremity: Right Full Weight Bearing Left Lower Extremity: Left Full Weight Bearing Gait Training Gait (FIM): 1 Distance (FIM): 1=up to 49 ft Distance: 30' Gait Level of Assist: 3 Gait Persons Needed: 2 Gait Assistive Device: FWW Pt was able to perform a reciprocal gait pattern with FWW with mod A x2. Pt tends to have an adducted pattern with ataxic movement. Exercises Seated Therapy Exercises: Ankle pumps, Long arc quads, Hip flexion Seated Reps: 10 Assessment Current Status: Fair Progress Pt was able to sit to stand from recliner with min A x1 to FWW. Pt was able to amb with an ataxic pattern with reciprocal steps with mod A x2 and FWW. Pt has shown much improvement since yesterday. Pt was able to return to bed and perform sitting LE ex with min A to keep sitting balance. Pt was able to get supine in bed with min A of trunk. Pt is now in bed with all needs met and daughter in room. Pt and daughter report that pt will be dismissed today to a nursing facility in [place], [place]. PT Short Term Goals Short Term Goals Transfers (B,C,W/C) (FIM): 3 PT Snf Goals Snf Goals PT Snf Goals Time Frame: Sep 28, 2018 Transfers (B,C,W/C) (FIM): 6 Gait (FIM): 6 Gait distance (FIM): 3=150 ft Distance: 150 Gait Level of Assist: 6 Gait Assistive Device: FWW PT Plan Problem List Problem List: Activity Tolerance, Functional Strength, Safety, Balance, Gait, Transfer, Bed Mobility, ROM Treatment/Plan Treatment Plan: Continue Plan of Care Treatment Plan: Bed Mobility, Education, Functional Activity Cassius, Functional Strength, Gait, Safety, Therapeutic Exercise, Transfers Treatment Duration: Oct 15, 2018 Frequency: 6 times per week Estimated Hrs Per Day: .25 hour per day Patient and/or Family Agrees t: Yes Safety Risks/Education Patient Education: Gait Training, Transfer Techniques, Reviewed Precautions, Correct Positioning, Safety Issues Teaching Recipient: Patient Teaching Methods: Demonstration, Discussion Response to Teaching: Reinforcement Needed Time/GCodes Time In: 1055 Time Out: 1110 Total Billed Treatment Time: 15 Total Billed Treatment 1 visit GT 15 min ELIF LOPEZ PT Sep 28, 2018 11:21
--- NOTE | 2018-09-28 13:12 | NUR ---
CM DISCHARGE PLANNING: Patient is discharging today to custodial home [facility] in [place], [place] for continued need of USP, Physical, et Occupational therapies. Patient's daughter will transport her by her private vehicle. Patient is dressed in her street clothes et reports readiness to begin therapy to rehabilitate to home. Nursing facility: [address]
--- NOTE | 2018-09-28 15:11 | NUR ---
Report given to Pamella, the Nurse who will assume care of this patient at [facility]. All follow up visits reviewed with Pamella at this time. Addendum: 09/28/18 at 1514 by JOHN ELKINS RN # to this facility is [phone]
[2018-09-28 15:35] VITALS: BP 146/67
[2018-09-28] MEDS ORDERED: LUBIPROSTONE 24 MCG CAP (AMITIZA) NON-FORMULARY PO SCH (21:00)
== END 2018-09-28 15:35 | DRG 457 ==
LOC: 4TH 10:07 → SURG 10:08 → EDSTATUS 12:30 → 4TH 18:21
PROVIDERS: ADMIT Orthopaedic Surgery Orthopaedic Surgery of the Spine; ATTEND Orthopaedic Surgery Orthopaedic Surgery of the Spine
PROC: 0RG7071 Fusion of 2 to 7 Thoracic Vertebral Joints with Autologous Tissue Substitute, Posterior Approach, Posterior Column, Open Approach (ICD-10-PCS; principal; 2018-09-23 13:14)
DX: M40.204 Unspecified kyphosis, thoracic region (principal); R29.3 Abnormal posture; M54.6 Pain in thoracic spine; D62 Acute posthemorrhagic anemia; E22.2 Syndrome of inappropriate secretion of antidiuretic hormone; M19.91 Primary osteoarthritis, unspecified site; M06.9 Rheumatoid arthritis, unspecified; G62.9 Polyneuropathy, unspecified; J44.9 Chronic obstructive pulmonary disease, unspecified; J45.909 Unspecified asthma, uncomplicated; I10 Essential (primary) hypertension; F41.9 Anxiety disorder, unspecified; F32.9 Major depressive disorder, single episode, unspecified; E03.9 Hypothyroidism, unspecified; K21.9 Gastro-esophageal reflux disease without esophagitis; G47.33 Obstructive sleep apnea (adult) (pediatric); K58.9 Irritable bowel syndrome, unspecified; E78.00 Pure hypercholesterolemia, unspecified; G43.909 Migraine, unspecified, not intractable, without status migrainosus; Z98.1 Arthrodesis status; Z79.899 Other long term (current) drug therapy; Z79.891 Long term (current) use of opiate analgesic
CPT/HCPCS: 36415; 70450; 71046; 72052; 80053; 81000; 83735; 85007; 85025; 85027; 86850; 86900; 86901; 87088; 94640; 94664; 94760